=== PATIENT | male | born 1980 | race Hispanic/Latino ===

== ENCOUNTER 2017-08-13 22:48 | Emergency (ER) | payer OTHER ==
[2017-08-14 01:51] VITALS: BP 132/68; PULSE 84; RESP 18; TEMP 98.2; O2SAT 99
--- NOTE | 2017-08-14 02:37 | ED PDOC ---
Arrival/HPI - General Historian: Patient <Kwan Robles - Last Filed: 08/14/17 03:25> <Cody Zamora - Last Filed: 08/14/17 03:31> - General Chief Complaint: Upper Extremity Problem/Injury Time Seen by Provider: 08/14/17 02:01 - History of Present Illness Narrative History of Present Illness (Text): 08/14/17 02:36 This 37 yo male presents to this ED c/o right shoulder pain, and left knee pain x 2 days. Patient stated he tripped and fell on the floor. Denies head injury , neck pain. (Kwan Robles) Past Medical History - Musculoskeletal/Rheumatological Hx Back Pain: Yes - Psychiatric Hx Substance Use: No <Kwan Robles - Last Filed: 08/14/17 03:25> Family/Social History Smoking Status: y Hx Alcohol Use: Yes Hx Substance Use: No <Kwan Robles - Last Filed: 08/14/17 03:25> Allergies/Home Meds <Kwan Robles - Last Filed: 08/14/17 03:25> <Cody Zamora - Last Filed: 08/14/17 03:31> Allergies/Adverse Reactions: Allergies No Known Allergies Allergy (Verified 08/14/17 01:46) Home Medications: Home Meds Medication Instructions Recorded Confirmed Oxycodone HCl [Roxicodone] 30 mg PO QID 08/14/17 08/14/17 Vital Signs Temp Pulse Resp BP Pulse Ox 08/14/17 01:51 98.2 F 84 18 132/68 99 Medical Decision Making Re-evaluation Time: 03:26 Reassessment Condition: Re-examined, Improved <Kwan Robles - Last Filed: 08/14/17 03:25> <Cody Zamora - Last Filed: 08/14/17 03:31> ED Course and Treatment: 08/14/17 03:26 Re-evaluation. Patient feels better. Discussed results and plan with patient who expresses understanding. All questions answered and there is agreement with the plan to discharge home with instructions. Patient stable for discharge. Return if symptoms persist or worsen. (Kwan Robles) - RAD Interpretation Narrative RAD Interpretations (Text): 08/14/17 03:26 shoulder x-rays: No fx or sublux. Knee x-rays: No fx or dislocation (Kwan Robles) Radiology Orders: 08/14/17 02:34 KNEE WITH PATELLA LEFT 3 VIEW [RAD] Stat SHOULDER RIGHT [RAD] Stat - Medication Orders Current Medication Orders: Discontinued Medications Ibuprofen (Motrin Tab) 600 mg PO STAT STA Stop: 08/14/17 03:27 - PA / PRESS TOOL MAKER / Resident Statement / has reviewed & agrees with the documentation as recorded. / has examined the patient and agrees with the treatment plan. <Cody Zamora - Last Filed: 08/14/17 03:31> Disposition/Present on Arrival - Present on Arrival Any Indicators Present on Arrival: No History of DVT/PE: No History of Uncontrolled Diabetes: No Urinary Catheter: No History of Decub. Ulcer: No History Surgical Site Infection Following: None - Disposition Have Diagnosis and Disposition been Completed?: Yes Disposition Time: 03:27 Patient Plan: Discharge <Kwan Robles - Last Filed: 08/14/17 03:25> <Cody Zamora - Last Filed: 08/14/17 03:31> - Disposition Diagnosis: Knee pain, Shoulder pain Disposition: HOME/ ROUTINE Condition: GOOD Discharge Instructions (ExitCare): Shoulder Sprain (ED), Knee Pain (ED) Additional Instructions: Call clinic for follow up visit in 1-2 days. Take medication as instructed. Prescriptions: Ibuprofen [Motrin] 600 mg PO Q8 PRN #12 tab PRN Reason: Pain, Severe (8-10) Referrals: [facility] [Outside] - Follow up with primary [facility] [Outside] - Follow up with primary Forms: [employer] (Chinese)
--- NOTE | 2017-08-14 12:25 | RAD ---
PROCEDURE: Left Knee Radiographs. HISTORY: Pain. COMPARISON: None. FINDINGS: BONES: Normal. No fracture. JOINTS: Normal. No osteoarthritis. JOINT EFFUSION: None. OTHER FINDINGS: None. IMPRESSION: Normal radiographs of the left knee.
--- NOTE | 2017-08-14 12:26 | RAD ---
PROCEDURE: Radiographs of the Right Shoulder HISTORY: pain COMPARISON: No prior. FINDINGS: BONES: Normal. No fracture. JOINTS: Normal. Glenohumeral and acromioclavicular joints preserved. No osteoarthritis. SOFT TISSUES: Normal. OTHER FINDINGS: None. IMPRESSION: Normal radiographs of the right shoulder.
== END 2017-08-14 03:50 | disposition home or self-care (01) ==
LOC: ED 22:48
DX: M25.562 Pain in left knee (principal); M25.511 Pain in right shoulder

== ENCOUNTER 2017-09-25 20:22 | Emergency (ER) | payer SELFPAY ==
[2017-09-25 20:55] VITALS: BP 132/75; PULSE 95; RESP 18; O2SAT 97
[2017-09-25] MEDS ORDERED: Lidocaine 2% Inj (20ml) SC STA (21:14)
--- NOTE | 2017-09-25 21:19 | ED PDOC ---
Arrival/HPI - General Chief Complaint: Trauma Time Seen by Provider: 09/25/17 20:51 Historian: Patient - History of Present Illness Narrative History of Present Illness (Text): 09/25/17 21:14 A 37 year old male, with no significant past medical history, presents to the emergency department complaining of head injury s/p fall. Patient reports slipping in the shower after tub had been cleaned. States experiencing dizziness after hitting head. Patient denies any numbness/weakness/tingling, LOC , or any other complaints at this time. Also, patient mentions taking antibiotics for a right foot cellulitis. He's on 5/10 days of medications and the redness and swelling has almost completely resolved. He will continue taking his prescribed abx. No fever. PMD: Dr. Collins Past Medical History - Provider Review Nursing Documentation Reviewed: Yes - Infectious Disease Hx of Infectious Diseases: None - Integumentary Hx Cellulitis: Yes (foot) - Musculoskeletal/Rheumatological Hx Back Pain: Yes - Psychiatric Hx Substance Use: No Family/Social History - Physician Review Nursing Documentation Reviewed: Yes Family/Social History: No Known Family HX Smoking Status: Never Smoked Hx Alcohol Use: Yes Hx Substance Use: No Allergies/Home Meds Allergies/Adverse Reactions: Allergies No Known Allergies Allergy (Verified 08/14/17 01:46) Home Medications: Home Meds Medication Instructions Recorded Confirmed Unobtainable 09/25/17 09/25/17 Review of Systems - Physician Review All systems were reviewed & negative as marked: Yes - Review of Systems Constitutional: Other (head injury s/p fall) Neurological: Dizziness. absent: Other (no numbness/weakness/tingling to extremities, no LOC) Physical Exam Vital Signs Reviewed: Yes Vital Signs Temp Pulse Resp BP Pulse Ox 09/25/17 21:27 98.3 F 09/25/17 20:55 95 H 18 132/75 97 Blood Pressure: Normal Pulse: Regular Respiratory Rate: Normal Appearance: Positive for: Well-Appearing Pain Distress: None Mental Status: Positive for: Alert and Oriented X 3 - Systems Exam Head: Present: Tenderness (mild), Swelling (mild), Laceration (1 inch Y-shaped irregular laceration to right side to head; no other injuries noted) Pupils: Present: PERRL Extroacular Muscles: Present: EOMI Conjunctiva: Present: Normal Mouth: Present: Moist Mucous Membranes Neck: Present: Normal Range of Motion. No: Meningeal Signs, MIDLINE TENDERNESS , Paraspinal Tenderness Respiratory/Chest: Present: Clear to Auscultation, Good Air Exchange. No: Respiratory Distress, Accessory Muscle Use Cardiovascular: Present: Regular Rate and Rhythm, Normal S1, S2 Abdomen: No: Tenderness Back: Present: Normal Inspection. No: Midline Tenderness Upper Extremity: Present: Normal Inspection. No: Cyanosis, Edema Lower Extremity: Present: Normal Inspection. No: Edema Neurological: Present: GCS=15, CN II-XII Intact, Speech Normal, Motor Func Grossly Intact, Normal Sensory Function, Norm Deep Tendon Reflexes, Gait Normal Skin: Present: Warm, Dry, Normal Color. No: Rashes Psychiatric: Present: Alert, Oriented x 3, Normal Insight, Normal Concentration Medical Decision Making ED Course and Treatment: 09/25/17 21:24 Impression: 37 year old male with head injury s/p fall. r/o ICH Plan: -- Head CT -- Lidocaine 2% -- Suture repair -- Reassess and disposition Prior Visits: Notes and results from previous visits were reviewed. Patient was last seen in the emergency department on 08/14/2017 for right soulder pain and left knee pain. Patient was discharged home. Progress Notes: 09/25/17 21:29 PROCEDURE: LACERATION REPAIR Performed by the emergency provider Location: Right scalp Length: 1 inch Description: Y-shaped, irregularly-shaped, clean wound edges, no foreign bodies Distal CMS: Normal. No deficits. Neurovascularly intact. Anesthesia: 2ml of Lidocaine 2% Preparation: The wound was cleaned with NS and Betadyne. The area was prepped and draped in the usual sterile fashion. Exploration: The wound was explored and no foreign bodies were found. Procedure: The wound was closed with surgical demetrius. There was good approximation. In total, 9 were used. Post-Procedure: Good closure and hemostasis. The patient tolerated the procedure well and there were no complications. CSM remains intact. Post procedure dressing applied. 09/25/17 22:28 CT Head shows: Brain: The white-dennis differentiation is preserved demonstrating no acute territorial type infarct. No acute intracranial hemorrhage is seen. Midline shift: There is no midline shift. Ventricles: No ventriculomegaly. Bones/joints: The calvarium demonstrates no evidence for a depressed fracture. Soft tissues: There is soft tissue swelling/hematoma of the right side of the scalp. Foci of gas are visualized within the soft tissues, consistent with laceration. Sinuses: Unremarkable as visualized. No acute sinusitis. Mastoid air cells: No mastoid effusion. IMPRESSION: 1. There is soft tissue swelling/hematoma of the right side of the scalp. Foci of gas are visualized within the soft tissues, consistent with laceration. 2. No acute intracranial abnormality. Dictated and Authenticated by: Jonny Espinoza MD Patient has no dizziness or lightheadedness. He was advised to return to the ED in 7-10 days to have sutures removed. He was advised to return to the ED if redness, pus or swelling develops in the wound. He was advised to return to the ED with any concerns and explain head injury symptoms to him. He will f/u with his PMD Dr. Collins. - RAD Interpretation Radiology Orders: 09/25/17 21:14 HEAD W/O CONTRAST [CT] Stat - Medication Orders Current Medication Orders: Discontinued Medications Lidocaine HCl (Lidocaine 2% 20ml Vial) 0 ml SC ONCE STA Stop: 09/25/17 21:15 - Scribe Statement The provider has reviewed the documentation as recorded by the Chris Blair Provider Scribe Attestation: All medical record entries made by the Yanethibranjeet were at my direction and personally dictated by me. I have reviewed the chart and agree that the record accurately reflects my personal performance of the history, physical exam, medical decision making, and the department course for this patient. I have also personally directed, reviewed, and agree with the discharge instructions and disposition. Disposition/Present on Arrival - Present on Arrival Any Indicators Present on Arrival: No History of DVT/PE: No History of Uncontrolled Diabetes: No Urinary Catheter: No History of Decub. Ulcer: No History Surgical Site Infection Following: None - Disposition Have Diagnosis and Disposition been Completed?: Yes Diagnosis: Laceration of head Disposition: HOME/ ROUTINE Disposition Time: 22:45 Patient Plan: Discharge Condition: IMPROVED Discharge Instructions (ExitCare): Concussion in Adults, Laceration Repair With Demetrius (DC) Additional Instructions: Mr Mirza, thank you for letting us take care of you today. Your provider was Dr. Peñaloza. You were treated for Head Injury from mechanical fall with laceration. The emergency medical care you received today was directed at your acute symptoms. If you were prescribed any medication, please fill it and take as directed. It may take several days for your symptoms to resolve. Return to the Emergency Department if your symptoms worsen, do not improve, or if you have any other problems. Please contact your doctor or call one of the physicians/clinics you have been referred to that are listed on the Patient Visit Information form that is included in your discharge packet. Bring any paperwork you were given at discharge with you along with any medications you are taking to your follow up visit. Our treatment cannot replace ongoing medical care by a primary care provider (PCP) outside of the emergency department. Thank you for allowing the [facility] team to be part of your care today. If you had an X-Ray or CT scan: A Radiologist will review the ED reading if any change in treatment is needed we will contact you. If you had a blood, urine, or wound culture: It will take several days for the results, if any change in treatment is needed we will contact you. If you had an STI test: It will take 48 hours for the results. Please call after 1 week if you have not heard back. Referrals: [facility], [Non-Staff] - Follow up with primary Forms: [employer] (Romanian), WORK NOTE
[2017-09-25 21:28] VITALS: TEMP 98.3
--- NOTE | 2017-09-25 22:22 | CT ---
EXAM: CT Head Without Intravenous Contrast EXAM DATE/TIME: 09/25/2017 9:14 PM CLINICAL HISTORY: The patient age is 37 years old and is male; Injury or trauma; Fall; Initial encounter; Blunt trauma (contusions or hematomas); Additional info: R/O CVA Facility exam id and description: Ct heads head w/o contrast TECHNIQUE: Axial computed tomography images of the head/brain without intravenous contrast. All CT scans at this facility use one or more dose reduction techniques, viz.: automated exposure control; ma/kV adjustment per patient size (including targeted exams where dose is matched to indication; i.e. head); or iterative reconstruction technique. Coronal and sagittal reformatted images were created and reviewed. COMPARISON: No relevant prior studies available. FINDINGS: Brain: The white-dennis differentiation is preserved demonstrating no acute territorial type infarct. No acute intracranial hemorrhage is seen. Midline shift: There is no midline shift. Ventricles: No ventriculomegaly. Bones/joints: The calvarium demonstrates no evidence for a depressed fracture. Soft tissues: There is soft tissue swelling/hematoma of the right side of the scalp. Foci of gas are visualized within the soft tissues, consistent with laceration. Sinuses: Unremarkable as visualized. No acute sinusitis. Mastoid air cells: No mastoid effusion. IMPRESSION: 1. There is soft tissue swelling/hematoma of the right side of the scalp. Foci of gas are visualized within the soft tissues, consistent with laceration. 2. No acute intracranial abnormality.
== END 2017-09-25 22:45 | disposition home or self-care (01) ==
LOC: ED 20:22
DX: S01.01XA Laceration without foreign body of scalp, initial encounter (principal); W18.2XXA Fall in (into) shower or empty bathtub, initial encounter; Y93.E1 Activity, personal bathing and showering

== ENCOUNTER 2017-10-04 21:44 | Inpatient (IN) | payer MEDICAID, OTHER ==
[2017-10-04 22:05] VITALS: BMI 22.6
[2017-10-04] MEDS ORDERED: Piperacillin/Tazobact 3.375 gm 100 ML IV STA (22:45)
[2017-10-04] MEDS ORDERED: Vancomycin 1gm in NS 250ml 1 GM/250 ML BAG IVPB STA (22:51)
--- NOTE | 2017-10-04 22:53 | ED PDOC ---
Arrival/HPI <Cody Zamora - Last Filed: 10/05/17 00:05> - General Historian: Patient, Spouse - History of Present Illness Time/Duration: > week Symptom Onset: Gradual Symptom Course: Worsening Quality: Aching, Pressure, Tightness Severity Level: 1 Activities at Onset: Rest Context: Work <Paola Adrian - Last Filed: 10/05/17 01:52> - General Chief Complaint: Wound Check Time Seen by Provider: 10/04/17 21:53 - History of Present Illness Narrative History of Present Illness (Text): 10/04/17 22:47 Jesse Mirza is a 37 year old male who presents for right foot swelling and pain s/p dorsal fin trauma to his foot while working 4 weeks ago. Pt was seen and treated at [facility] 3 weeks ago with IV abx and discharged on oral Bactrim for 10 days. Pt is also here for staple removal of the scalp s/ p slip and fall in the shower about a week ago (09/25/17). Pt denies head or scalp pain and only complains of right foot pain that he describes as excruciating. Right foot began to swell, elana along with increase in warmth and pain over the last few days. States that he normally takes Oxycontin for chronic pain however it does not relieve the foot pain he currently has. Denies fever, chest pain, shortness of breath, headache, nausea, vomiting or diarrhea or any other complaints. 10/04/17 22:53 (Paola Adrian) Past Medical History - Provider Review Nursing Documentation Reviewed: Yes - Travel History Have you recently traveled outside [place] w/in the past 3 mons?: No - Infectious Disease Hx of Infectious Diseases: None - Integumentary Hx Cellulitis: Yes (foot) - Musculoskeletal/Rheumatological Hx Back Pain: Yes - Psychiatric Hx Substance Use: No <Paola Adrian - Last Filed: 10/05/17 01:52> Family/Social History - Physician Review Nursing Documentation Reviewed: Yes Family/Social History: Unknown Family HX Smoking Status: Smoker Currrent Status Unknown Hx Alcohol Use: Yes Hx Substance Use: No <Paola Adrian - Last Filed: 10/05/17 01:52> Allergies/Home Meds <Cody Zamora - Last Filed: 10/05/17 00:05> <Paola Adrian - Last Filed: 10/05/17 01:52> Allergies/Adverse Reactions: Allergies No Known Allergies Allergy (Verified 08/14/17 01:46) Home Medications: Home Meds Medication Instructions Recorded Confirmed Unobtainable 09/25/17 09/25/17 Review of Systems - Review of Systems Constitutional: Fatigue Eyes: Normal ENT: Normal Respiratory: Normal Cardiovascular: Normal Gastrointestinal: Appetite Changes Genitourinary Male: Normal Musculoskeletal: Other (right foot and leg pain) Skin: Laceration (scalp sutures), Cellulitis (right foot edema w erythema) Neurological: Normal Endocrine: Normal Hemo/Lymphatic: Normal Psychiatric: Normal <Paola Adrian - Last Filed: 10/05/17 01:52> Physical Exam Vital Signs Reviewed: Yes Temperature: Afebrile Blood Pressure: Normal Pulse: Regular Respiratory Rate: Normal Appearance: Positive for: Non-Toxic, Uncomfortable Pain Distress: Moderate Mental Status: Positive for: Alert and Oriented X 3 - Systems Exam Head: Present: Atraumatic, Normocephalic Pupils: Present: PERRL Extroacular Muscles: Present: EOMI Conjunctiva: Present: Normal Mouth: Present: Moist Mucous Membranes Neck: Present: Normal Range of Motion Respiratory/Chest: Present: Clear to Auscultation, Good Air Exchange. No: Respiratory Distress, Accessory Muscle Use Cardiovascular: Present: Regular Rate and Rhythm, Normal S1, S2. No: Murmurs Abdomen: Present: Normal Bowel Sounds. No: Tenderness, Distention, Peritoneal Signs Back: Present: Normal Inspection Upper Extremity: Present: Normal Inspection. No: Cyanosis, Edema Lower Extremity: Present: CALF TENDERNESS (right LE), NORMAL PULSES (diminished pedal dorsalis pulse of right foot), Laury's Sign, Tenderness (medial aspect of right foot), Swelling (medial aspect of right foot), Erythema (Medial aspect of right foot), Deformity (Medial aspect of right foot), Temperature Abnormalties ( Right LE and foot ). No: Edema, Cyanosis, Normal ROM, Neurovascularly Intact, Capillary Refill < 2 s, Other Neurological: Present: GCS=15, CN II-XII Intact, Speech Normal, Other ( Diminished sensation between webbing of hallux and 2nd toe of right foot; poor ROM especially extensor hallucis longus) Skin: Present: Warm, Dry, Normal Color, Hot (right foot and ankle), Laceration ( post staple placement on the right pariental aspect of scalp). No: Rashes Psychiatric: Present: Alert, Oriented x 3, Normal Insight, Normal Concentration <Paola Adrian - Last Filed: 10/05/17 01:52> Vital Signs Temp Pulse Resp BP Pulse Ox 10/05/17 00:00 98.4 F 95 H 19 143/67 95 10/04/17 22:03 99.8 F H Medical Decision Making <Cody Zamora - Last Filed: 10/05/17 00:05> - RAD Interpretation Sequins Slinger: ED Physician - EKG Interpretation Interpreted by ED Physician: Yes (NSR) <Paola Adrian - Last Filed: 10/05/17 01:52> ED Course and Treatment: 10/04/17 22:53 Impression Jesse Mirza is a 37 year old male who presents for right foot swelling and pain s/p dorsal fin trauma to his foot while working 4 weeks ago. Pt is also here for staple removal of the scalp s/p slip and fall in the shower about a week ago. Plan ecg, cbc w diff, cmp, ua, vbg shock panel, right foot XR pain management assess and dispo; likely will admit for failed outpatient cellulitis tx and r/o osteomyelitis Progress Note 10/04/17 23:28 Pt complains of pressure and pain in right foot; NS 500cc bolus and Ketorolac 30mg IVP given Hospital Resident and Store Person, Dr. Urbina, contacted and pt admitted under Dr. Neville to the medical/surg floor Vanco 1gram IV and Zosyn IV STAT Advised pt of admission status (Paola Adrian) - Lab Interpretations Lab Results: 10/05/17 00:00 10/05/17 00:00 Lab Results 10/05/17 00:00: pO2 37, VBG pH 7.34, VBG pCO2 60.0, VBG HCO3 32.4 H, VBG Total CO2 34.2 H, VBG O2 Sat (Calc) 77.9 H, VBG Base Excess 4.8 H, VBG Potassium 4.1, Sodium 134.0, Chloride 100.0, Glucose 101, Lactate 0.6 L, FiO2 21.0, Venous Blood Potassium 4.1 10/05/17 00:00: Sodium 136, Chloride 98, Potassium 4.0, Carbon Dioxide 29, Anion Gap 13, BUN 17, Creatinine 1.0, Est GFR ( Amer) > 60, Est GFR (Non- Af Amer) > 60, Random Glucose 99, Calcium 9.9, Total Bilirubin 0.8, AST 26, ALT 30, Alkaline Phosphatase 73, Total Protein 7.9, Albumin 4.3, Globulin 3.6, Albumin/Globulin Ratio 1.2 10/05/17 00:00: WBC 12.3 H, RBC 3.85, Hgb 11.6 L, Hct 34.6 L, MCV 89.9, MCH 30.1 , MCHC 33.5, RDW 12.3, Plt Count 306, MPV 10.0, Gran % 75.2 H, Lymph % (Auto) 18.2 L, [place] % (Auto) 6.3 H, Eos % (Auto) 0.1 L, Baso % (Auto) 0.2, Gran # 9.23 H, Lymph # (Auto) 2.2, [place] # (Auto) 0.8 H, Eos # (Auto) 0.0, Baso # (Auto) 0.02 - RAD Interpretation Narrative RAD Interpretations (Text): 10/05/17 01:50 Plain film of the right foot reveals soft tissue swelling on the medial aspect; no evidence of bone necrosis, fracture, or dislocation (Paola Adrian) Radiology Orders: 10/04/17 22:42 FOOT RIGHT 3 VIEWS ROUTINE [RAD] Stat - Medication Orders Current Medication Orders: Heparin Sodium (Porcine) (Heparin) 5,000 units SC Q8 QUENTIN PRN Reason: Protocol Vancomycin HCl (Vancomycin 1gm) 1 gm in 250 mls @ 167 mls/hr IVPB DAILY QUENTIN PRN Reason: Protocol Piperacillin Sod/Tazobactam Sod (Zosyn 3.375 In Ns 100ml) 100 mls @ 200 mls/hr IVPB Q6 QUENTIN PRN Reason: Protocol Stop: 10/05/17 12:29 Oxycodone/Acetaminophen (Percocet 5/325 Mg Tab) 1 tab PO Q4H PRN PRN Reason: Pain, moderate (4-7) Stop: 10/08/17 01:42 Pantoprazole Sodium (Protonix Ec Tab) 40 mg PO 0600 QUENTIN Discontinued Medications Vancomycin HCl (Vancomycin 1gm) 1 gm in 250 mls @ 167 mls/hr IVPB STAT STA PRN Reason: Protocol Stop: 10/05/17 00:20 Last Admin: 10/05/17 01:15 Dose: 167 mls/hr Piperacillin Sod/Tazobactam Sod (Zosyn 3.375 In Ns 100ml) 100 mls @ 200 mls/hr IV STAT STA PRN Reason: Protocol Stop: 10/04/17 23:14 Last Admin: 10/05/17 00:08 Dose: 200 mls/hr eMAR Start Stop Document 10/05/17 00:08 AB (Rec: 10/05/17 00:08 AB [id number]) Intravenous Solution Start Date 10/05/17 Start Time 00:08 End Date 10/05/17 End time 00:38 Total Infusion Time 30 Sodium Chloride (Sodium Chloride 0.9%) 500 mls @ 999 mls/hr IV .Q31M STA Stop: 10/04/17 23:51 Last Admin: 10/05/17 00:09 Dose: 999 mls/hr eMAR Start Stop Document 10/05/17 00:09 AB (Rec: 10/05/17 00:09 AB [id number]) Intravenous Solution Start Date 10/05/17 Start Time 00:09 End Date 10/05/17 End time 00:39 Total Infusion Time 30 Ketorolac Tromethamine (Toradol) 30 mg IVP STAT STA Stop: 10/04/17 23:23 Last Admin: 10/05/17 00:09 Dose: Oxycodone HCl (Oxycodone Immediate Release Tab) 10 mg PO STAT STA Stop: 10/05/17 01:41 - PA / WIRELESS OPERATOR / Resident Statement RANDA has reviewed & agrees with the documentation as recorded. RANDA has examined the patient and agrees with the treatment plan. <Cody Zamora - Last Filed: 10/05/17 00:05> Disposition/Present on Arrival <Cody Zamora - Last Filed: 10/05/17 00:05> - Present on Arrival Any Indicators Present on Arrival: Yes History of DVT/PE: No History of Uncontrolled Diabetes: No Urinary Catheter: No History of Decub. Ulcer: No History Surgical Site Infection Following: None - Disposition Have Diagnosis and Disposition been Completed?: Yes Disposition Time: 00:20 Patient Plan: Admission <Paola Adrian - Last Filed: 10/05/17 01:52> - Disposition Diagnosis: Failure of outpatient treatment, Cellulitis of foot, right Disposition: HOSPITALIZED Patient Problems: Current Active Problems Problem Status Onset Cellulitis of foot, right Acute Failure of outpatient treatment Acute Condition: STABLE Referrals: PCP,NO [Primary Care Provider] - Follow up with primary
[2017-10-04] MEDS ORDERED: Sodium Chloride 0.9% 500 ML IV STA (23:21)
[2017-10-05 00:16] LABS: VENOUS BLOOD GAS BASE EXCESS 4.8 mmol/L (0.0-2.0); VENOUS BLOOD GAS PO2 37 mm/Hg (30-55); VENOUS BLOOD PH 7.34 (7.32-7.43)
[2017-10-05 00:17] LABS: BASO # 0.02 K/mm3 (0.0-2.0); BASO % 0.2 % (0.0-3.0); EOS % 0.1 % (1.5-5.0); GRAN # 9.23 (1.4-6.5); GRAN % 75.2 % (50.0-68.0); HEMOGLOBIN 11.6 g/dL (14.0-18.0); LYMPH # 2.2 (1.2-3.4); LYMPH % 18.2 % (22.0-35.0); MEAN CELL VOLUME 89.9 fl (80.0-105.0); MEAN CORPUSCULAR HEMOGLOBIN 30.1 pg (25.0-35.0); MEAN CORPUSCULAR HGB CONC 33.5 g/dl (31.0-37.0); MONO # 0.8 (0.1-0.6); MONO % 6.3 % (1.0-6.0); RBC 3.85 10^6/uL (3.5-6.1); RED CELL DISTRIBUTION WIDTH 12.3 % (11.5-14.5); WHITE BLOOD COUNT 12.3 10^3/ul (4.5-11.0)
[2017-10-05 00:26] LABS: ALB/GLOB RATIO 1.2 (1.1-1.8); ALBUMIN 4.3 g/dL (3.0-4.8); ALT/SGPT 30 U/L (7-56); AST/SGOT 26 U/L (17-59); BLOOD UREA NITROGEN 17 mg/dL (7-21); CALCIUM 9.9 mg/dL (8.4-10.5); GFR AFRICAN-AMERICAN > 60; GFR NON-AFRICAN AMERICAN > 60
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
[2017-10-05] MEDS ORDERED: oxyCODONE 5 mg Immediate Release Tab PO STA (01:40)
[2017-10-05] MEDS ORDERED: Oxycodone/Acetaminophen 5/325 mg Tab PO PRN (01:41)
[2017-10-05] MEDS ORDERED: TDAP Vaccine 0.5 mL Syr IM ONE (01:52)
[2017-10-05 02:10] LABS: URINE BILIRUBIN NEGATIVE (NEGATIVE); URINE BLOOD NEGATIVE (NEGATIVE); URINE GLUCOSE (UA) NEGATIVE (NEGATIVE); URINE LEUKOCYTE ESTERASE NEGATIVE Leu/uL (NEGATIVE); URINE PROTEIN NEGATIVE mg/dL (<30 mg/dL); URINE UROBILINOGEN 0.2 E.U./dL (<1 E.U./dL)
[2017-10-05 02:11] LABS: URINE APPEARANCE CLEAR (CLEAR); URINE COLOR YELLOW (YELLOW)
[2017-10-05 03:39] LABS: BARBITURATES, UR NEGATIVE (NEGATIVE); BENZODIAZEPINES, UR NEGATIVE (NEGATIVE); OPIATES, UR POSITIVE (NEGATIVE); PHENCYCLIDINE, UR NEGATIVE (NEGATIVE)
[2017-10-05] MEDS: Pantoprazole 40 mg EC Tab PO SCH (05:58)
[2017-10-05] MEDS ORDERED: Piperacillin/Tazobact 3.375 gm 100 ML IVPB SCH (06:00)
--- NOTE | 2017-10-05 08:15 | RAD ---
PROCEDURE: Right Foot Radiographs. HISTORY: cellulitis COMPARISON: None. FINDINGS: BONES: Healed fractures are seen in the 2nd and 3rd metatarsals JOINTS: Normal. SOFT TISSUES: Normal. OTHER FINDINGS: None. IMPRESSION: No acute findings
[2017-10-05 08:45] LABS: BASO # 0.02 K/mm3 (0.0-2.0); BASO % 0.2 % (0.0-3.0); EOS # 0.1 (0.0-0.7); EOS % 0.7 % (1.5-5.0); GRAN # 8.12 (1.4-6.5); GRAN % 71.7 % (50.0-68.0); HEMOGLOBIN 10.7 g/dL (14.0-18.0); LYMPH # 2.3 (1.2-3.4); LYMPH % 20.1 % (22.0-35.0); MEAN CELL VOLUME 90.7 fl (80.0-105.0); MEAN CORPUSCULAR HEMOGLOBIN 29.3 pg (25.0-35.0); MEAN CORPUSCULAR HGB CONC 32.3 g/dl (31.0-37.0); MEAN PLATELET VOLUME 10.2 fl (7.0-11.0); MONO # 0.8 (0.1-0.6); MONO % 7.3 % (1.0-6.0); RBC 3.65 10^6/uL (3.5-6.1); RED CELL DISTRIBUTION WIDTH 12.3 % (11.5-14.5); WHITE BLOOD COUNT 11.3 10^3/ul (4.5-11.0)
[2017-10-05 08:47] LABS: ALB/GLOB RATIO 1.1 (1.1-1.8); ALBUMIN 3.4 g/dL (3.0-4.8); ALT/SGPT 30 U/L (7-56); AST/SGOT 21 U/L (17-59); BLOOD UREA NITROGEN 19 mg/dL (7-21); CALCIUM 8.8 mg/dL (8.4-10.5); GFR AFRICAN-AMERICAN > 60; GFR NON-AFRICAN AMERICAN > 60; HDL CHOLESTEROL 51 mg/dL (29-60)
[2017-10-05 08:57] LABS: LDL CHOLESTEROL 58 mg/dL (0-129)
[2017-10-05] MEDS ORDERED: Vancomycin 1gm in NS 250ml 1 GM/250 ML BAG IVPB SCH (10:00)
[2017-10-05] MEDS: oxyCODONE 30 mg Immediate Release Tab PO PRN ×3 (10:17→22:24)
[2017-10-05] MEDS: Vancomycin 1gm in NS 250ml 1 GM/250 ML BAG IVPB SCH ×2 (10:17→21:15)
[2017-10-05] MEDS ORDERED: Meropenem 1 GM in Dextrose 5% In Water 100 ML IVPB SCH (14:00)
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
[2017-10-05] MEDS: Meropenem 1g/NS 100mL IVPB 1 GM/100 ML PIGGYBACK IVPB SCH ×2 (14:30→21:14)
--- NOTE | 2017-10-05 14:40 | MRI ---
PROCEDURE: MRI of the right foot without contrast HISTORY: r/o medial midfoot foreign body/ abscess. COMPARISON: TECHNIQUE: MRI of the right foot was performed in multiple planes using multiple pulse sequences FINDINGS: There is extensive marrow edema in the 1st cuneiform in the adjacent 1st metatarsal. Findings are suspicious for osteomyelitis. There is minimal marrow edema in the proximal 2nd metatarsal. There is a mild amount of subcutaneous edema. Small subcutaneous fluid collections are seen adjacent to the base of the 1st metatarsal. The largest of these collections measures 7 mm in height by 19 mm length as seen on image 19 series 5. These could represent focal abscesses. There is no evidence of a foreign body IMPRESSION: Marrow edema in the 1st cuneiform and 1st metatarsal suspicious for osteomyelitis. See comments
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
[2017-10-06] MEDS: oxyCODONE 30 mg Immediate Release Tab PO PRN (05:10)
[2017-10-06] MEDS: Pantoprazole 40 mg EC Tab PO SCH (05:10)
[2017-10-06] MEDS: Meropenem 1g/NS 100mL IVPB 1 GM/100 ML PIGGYBACK IVPB SCH ×3 (05:10→21:52)
[2017-10-06 08:36] LABS: BASO # 0.01 K/mm3 (0.0-2.0); BASO % 0.1 % (0.0-3.0); EOS # 0.1 (0.0-0.7); EOS % 0.8 % (1.5-5.0); GRAN % 66.1 % (50.0-68.0); LYMPH # 1.9 (1.2-3.4); LYMPH % 25.3 % (22.0-35.0); MEAN CELL VOLUME 91.1 fl (80.0-105.0); MEAN CORPUSCULAR HEMOGLOBIN 29.7 pg (25.0-35.0); MEAN CORPUSCULAR HGB CONC 32.6 g/dl (31.0-37.0); MEAN PLATELET VOLUME 10.4 fl (7.0-11.0); MONO # 0.6 (0.1-0.6); MONO % 7.7 % (1.0-6.0); RBC 3.7 10^6/uL (3.5-6.1); RED CELL DISTRIBUTION WIDTH 12.4 % (11.5-14.5); WHITE BLOOD COUNT 7.6 10^3/ul (4.5-11.0)
[2017-10-06 09:24] LABS: ALB/GLOB RATIO 1.1 (1.1-1.8); ALBUMIN 3.6 g/dL (3.0-4.8); ALT/SGPT 22 U/L (7-56); AST/SGOT 21 U/L (17-59); BLOOD UREA NITROGEN 14 mg/dL (7-21); CALCIUM 9.6 mg/dL (8.4-10.5); GFR AFRICAN-AMERICAN > 60; GFR NON-AFRICAN AMERICAN > 60
[2017-10-06] MEDS: Vancomycin 1gm in NS 250ml 1 GM/250 ML BAG IVPB SCH ×2 (09:29→21:52)
[2017-10-06] MEDS: Morphine 2 mg/ml ISec IVP PRN ×4 (09:30→22:21)
--- NOTE | 2017-10-06 11:58 | CP.PCM.PN ---
<Mello Novak - Last Filed: 10/06/17 12:03> Subjective - Date & Time of Evaluation Date of Evaluation: 10/06/17 Time of Evaluation: 08:00 - Subjective Subjective: Patient seen and evaluated at bedside. States he was able to sleep overnight however is in severe pain. Describes pain in right foot as a hammer. Denies shortness of breath, chest pain, fevers, chills, nausea, vomiting diarrhea. Objective - Vital Signs/Intake and Output Vital Signs (last 24 hours): Temp Pulse Resp BP Pulse Ox 97.8 F 73 20 121/68 99 10/06/17 07:30 10/06/17 07:30 10/06/17 07:30 10/06/17 07:30 10/06/17 07:30 Intake and Output: 10/06/17 10/06/17 06:59 18:59 Intake Total 360 Balance 360 - Medications Medications: Current Medications Heparin Sodium (Porcine) (Heparin) 5,000 units SC Q8 QUENTIN PRN Reason: Protocol Last Admin: 10/06/17 05:09 Dose: 5,000 units Vancomycin HCl (Vancomycin 1gm) 1 gm in 250 mls @ 167 mls/hr IVPB Q12 QUENTIN PRN Reason: Protocol Last Admin: 10/06/17 09:29 Dose: 167 mls/hr Meropenem/Sodium Chloride (Meropenem 1g/Ns 100ml Ivpb) 1 gm in 100 mls @ 100 mls/hr IVPB Q8H [facility] Stop: 10/12/17 14:01 Last Admin: 10/06/17 05:10 Dose: 100 mls/hr Ibuprofen (Motrin Tab) 600 mg PO Q6H PRN PRN Reason: Pain, moderate (4-7) Last Admin: 10/05/17 21:21 Dose: 600 mg Morphine Sulfate (Morphine) 2 mg IVP Q4H PRN PRN Reason: Pain, severe (8-10) Last Admin: 10/06/17 09:30 Dose: 2 mg Nicotine (Nicoderm Cq) 1 patch TD DAILY [facility] Last Admin: 10/06/17 09:30 Dose: 1 patch Pantoprazole Sodium (Protonix Ec Tab) 40 mg PO 0600 [facility] Last Admin: 10/06/17 05:10 Dose: 40 mg - Labs Labs: 10/06/17 08:24 10/06/17 08:24 - Constitutional Appears: Non-toxic, No Acute Distress - Head Exam Head Exam: ATRAUMATIC, NORMAL INSPECTION, NORMOCEPHALIC - Eye Exam Eye Exam: EOMI, Normal appearance - ENT Exam ENT Exam: Mucous Membranes Moist, Normal Exam - Neck Exam Neck Exam: Normal Inspection - Respiratory Exam Respiratory Exam: Clear to Ausculation Bilateral, NORMAL BREATHING PATTERN. 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 official read pending. - Right foot MRI reveals osteomyelitis - Podiatry recs appreciated with new MRI finding of osteomyelitis Hx of recent NSAID use: - Protonix - monitor for symptoms of gastritis/GERD - Avoid further high doses of NSAIDs Hx of Polysubstance abuse: - Urine drug screen positive for opioids and cocaine - Advised cessation Hx of Tobacco use: - Advised cessation - Nicotine patch Hx of previous fractures/back pain: - Oxycodone d/c'ed, morphine 2mg Q4h for severe pain - Motrin for breakthrough pain PPX: Heparin sq, Protonix <Riaz Grewal B - Last Filed: 10/06/17 14:35> Objective - Vital Signs/Intake and Output Vital Signs (last 24 hours): Temp Pulse Resp BP Pulse Ox 97.8 F 73 20 121/68 99 10/06/17 07:30 10/06/17 07:30 10/06/17 07:30 10/06/17 07:30 10/06/17 07:30 Intake and Output: 10/06/17 10/06/17 06:59 18:59 Intake Total 360 Balance 360 - Medications Medications: Current Medications Heparin Sodium (Porcine) (Heparin) 5,000 units SC Q8 QUENTIN PRN Reason: Protocol Last Admin: 10/06/17 13:59 Dose: 5,000 units Vancomycin HCl (Vancomycin 1gm) 1 gm in 250 mls @ 167 mls/hr IVPB Q12 QUENTIN PRN Reason: Protocol Last Admin: 10/06/17 09:29 Dose: 167 mls/hr Meropenem/Sodium Chloride (Meropenem 1g/Ns 100ml Ivpb) 1 gm in 100 mls @ 100 mls/hr IVPB Q8H [facility] Stop: 10/12/17 14:01 Last Admin: 10/06/17 13:59 Dose: 100 mls/hr Ibuprofen (Motrin Tab) 600 mg PO Q6H PRN PRN Reason: Pain, moderate (4-7) Last Admin: 10/05/17 21:21 Dose: 600 mg Morphine Sulfate (Morphine) 2 mg IVP Q4H PRN PRN Reason: Pain, severe (8-10) Last Admin: 10/06/17 13:58 Dose: 2 mg Nicotine (Nicoderm Cq) 1 patch TD DAILY [facility] Last Admin: 10/06/17 09:30 Dose: 1 patch Pantoprazole Sodium (Protonix Ec Tab) 40 mg PO 0600 [facility] Last Admin: 10/06/17 05:10 Dose: 40 mg - Labs Labs: 10/06/17 08:24 10/06/17 08:24 Attending/Attestation - Attestation I have personally seen and examined this patient.: Yes I have fully participated in the care of the patient.: Yes I have reviewed all pertinent clinical information, including history, physical exam and plan: Yes Notes (Text): I have seen and examined the patient at bedside. 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 He is afebrile however reports fever and chills 2 days [employer]. He has leukocytosis and complains of severe pain in the right foot. MRI revealed osteomyelitis. ID and podiatry on board. Continue meropenem and vancomycin. Tobacco and narcotic cessation counselling provided. Upon discharge patient will follow up with Dr Collins. Dr Riaz Grewal
--- NOTE | 2017-10-06 13:56 | CP.PCM.PN ---
Subjective - Date & Time of Evaluation Date of Evaluation: 10/06/17 Time of Evaluation: 11:10 - Subjective Subjective: Still with pain in the right foot, not in distress, no fevers, no nausea, no diarrhea. Objective - Vital Signs/Intake and Output Vital Signs (last 24 hours): Temp Pulse Resp BP Pulse Ox 97.8 F 86 20 107/72 97 10/05/17 07:30 10/05/17 07:30 10/05/17 07:30 10/05/17 07:30 10/05/17 07:30 Intake and Output: 10/05/17 10/05/17 06:59 18:59 Intake Total 240 Balance 240 - Medications Medications: Current Medications Heparin Sodium (Porcine) (Heparin) 5,000 units SC Q8 [facility] PRN Reason: Protocol Last Admin: 10/05/17 05:58 Dose: 5,000 units Vancomycin HCl (Vancomycin 1gm) 1 gm in 250 mls @ 167 mls/hr IVPB Q12 [facility] PRN Reason: Protocol Last Admin: 10/05/17 10:17 Dose: 167 mls/hr Meropenem/Sodium Chloride (Meropenem 1g/Ns 100ml Ivpb) 1 gm in 100 mls @ 100 mls/hr IVPB Q8H [facility] Stop: 10/12/17 14:01 Nicotine (Nicoderm Cq) 1 patch TD DAILY [facility] Last Admin: 10/05/17 10:18 Dose: 1 patch Oxycodone HCl (Oxycodone Immediate Release Tab) 30 mg PO Q6H PRN PRN Reason: Pain, severe (8-10) Last Admin: 10/05/17 10:17 Dose: 30 mg Pantoprazole Sodium (Protonix Ec Tab) 40 mg PO 0600 [facility] Last Admin: 10/05/17 05:58 Dose: 40 mg - Labs Labs: 10/05/17 08:26 10/05/17 08:26 - Constitutional Appears: Chronically Ill - Head Exam Head Exam: NORMAL INSPECTION - ENT Exam ENT Exam: Mucous Membranes Moist - Neck Exam Neck Exam: absent: Meningismus - Respiratory Exam Respiratory Exam: Decreased Breath Sounds - Cardiovascular Exam Cardiovascular Exam: +S1, +S2 - GI/Abdominal Exam GI & Abdominal Exam: Soft. absent: Tenderness - Extremities Exam Additional comments: right foot with swelling on the medial dorsal side, no fluctuance noted, no discharge or pus noted, still with tenderness extending up to the medial side of the distal leg Assessment and Plan - Assessment and Plan (Free Text) Plan: Assessment Sepsis due to right foot skin and skin structure infection with associated osteomyelitis Plan continue Vancomycin and Merrem pending blood cx, wound cx; MRI shows osteomyelitis of the 1st metatarsal and cuneiform, follow up ESR, CRP and further Podiatry recommendations will continue to monitor clinically
--- NOTE | 2017-10-06 16:28 | CP.PCM.PN ---
<David Caro - Last Filed: 10/06/17 16:22> Subjective - Date & Time of Evaluation Date of Evaluation: 10/06/17 Time of Evaluation: 12:40 - Subjective Subjective: Podiatry Progress note- Dr. Santiago 37 year old male pt seen at bedside for evaluation of right midfoot cellulits. Pt reports general decrease of redness and swelling. Pt reports a decrease in pain from prior day, and reports that current pain medications are well controlling pain. States he was able to sleep overnight, and denies any acute overnight events. He denies shortness of breath, chest pain, fevers, chills, nausea, vomiting diarrhea. Objective - Vital Signs/Intake and Output Vital Signs (last 24 hours): Temp Pulse Resp BP Pulse Ox 97.8 F 73 20 121/68 99 10/06/17 07:30 10/06/17 07:30 10/06/17 07:30 10/06/17 07:30 10/06/17 07:30 Intake and Output: 10/06/17 10/06/17 06:59 18:59 Intake Total 360 780 Balance 360 780 - Medications Medications: Current Medications Heparin Sodium (Porcine) (Heparin) 5,000 units SC Q8 [facility] PRN Reason: Protocol Last Admin: 10/06/17 13:59 Dose: 5,000 units Vancomycin HCl (Vancomycin 1gm) 1 gm in 250 mls @ 167 mls/hr IVPB Q12 [facility] PRN Reason: Protocol Last Admin: 10/06/17 09:29 Dose: 167 mls/hr Meropenem/Sodium Chloride (Meropenem 1g/Ns 100ml Ivpb) 1 gm in 100 mls @ 100 mls/hr IVPB Q8H [facility] Stop: 10/12/17 14:01 Last Admin: 10/06/17 13:59 Dose: 100 mls/hr Ibuprofen (Motrin Tab) 600 mg PO Q6H PRN PRN Reason: Pain, moderate (4-7) Last Admin: 10/05/17 21:21 Dose: 600 mg Morphine Sulfate (Morphine) 2 mg IVP Q4H PRN PRN Reason: Pain, severe (8-10) Last Admin: 10/06/17 13:58 Dose: 2 mg Nicotine (Nicoderm Cq) 1 patch TD DAILY [facility] Last Admin: 10/06/17 09:30 Dose: 1 patch Pantoprazole Sodium (Protonix Ec Tab) 40 mg PO 0600 [facility] Last Admin: 10/06/17 05:10 Dose: 40 mg - Labs Labs: 10/06/17 08:24 10/06/17 08:24 - Constitutional Appears: Well, Non-toxic, No Acute Distress - Extremities Exam Additional comments: Right lower extremity focused. VASC: DP and PT pulses are fully palpable graded 2/4 respectively. Regression of lower leg and rearfoot edema, non-piting edema not localized to midfoot, with return of relaxed skin tension lines. Temperature runs warm to cool proximal to distal. DERM: Decreased intensity of erythema noted at level of midfoot. Dorsal-medial fluctuance decreasing. Tenderness to palpation along midfoot decreasing. MUSCK: Medial tibial tenderness to palpation along distal 2/5 tenderness - Neurological Exam Neurological Exam: Alert, Awake, Oriented x3 - Psychiatric Exam Psychiatric exam: Normal Affect, Normal Mood Assessment and Plan - Assessment and Plan (Free Text) Assessment: 37 year old male with right midfoot abscess and cellulits, resolving. Plan: Pt seen and evaluated. Discussed in detail with attending, Dr. Santiago. Afebrile, absent leukocytosis WBC= 7.6 trending down from yesterday's 12.3 - Continue IV abx per ID recommendations; currently Merrem and Vanco - Right foot MRI reveals dorsal midfoot abscess and potential 1st metatarsal and medial cuneiform osteomyelitis Pain control per medical team. Pt has hx of polysubstance abuse Currently Morphine 2mg Q4h for severe pain & Motrin for breakthrough pain. Indication presents for potential podiatric surgical intervention. Podiatry will continue to follow pt while inhouse. <Bird Santiago - Last Filed: 10/07/17 06:51> Objective - Vital Signs/Intake and Output Vital Signs (last 24 hours): Temp Pulse Resp BP Pulse Ox 98.8 F 73 20 115/79 98 10/07/17 00:00 10/07/17 00:00 10/07/17 00:00 10/07/17 00:00 10/07/17 00:00 Intake and Output: 10/06/17 10/07/17 18:59 06:59 Intake Total 780 1080 Balance 780 1080 - Medications Medications: Current Medications Heparin Sodium (Porcine) (Heparin) 5,000 units SC Q8 [facility] PRN Reason: Protocol Last Admin: 10/06/17 21:51 Dose: 5,000 units Vancomycin HCl (Vancomycin 1gm) 1 gm in 250 mls @ 167 mls/hr IVPB Q12 [facility] PRN Reason: Protocol Last Admin: 10/06/17 21:52 Dose: 167 mls/hr Meropenem/Sodium Chloride (Meropenem 1g/Ns 100ml Ivpb) 1 gm in 100 mls @ 100 mls/hr IVPB Q8H [facility] Stop: 10/12/17 14:01 Last Admin: 10/06/17 21:52 Dose: 100 mls/hr Ibuprofen (Motrin Tab) 600 mg PO Q6H PRN PRN Reason: Pain, moderate (4-7) Last Admin: 10/05/17 21:21 Dose: 600 mg Morphine Sulfate (Morphine) 2 mg IVP Q4H PRN PRN Reason: Pain, severe (8-10) Last Admin: 10/07/17 02:43 Dose: 2 mg Nicotine (Nicoderm Cq) 1 patch TD DAILY [facility] Last Admin: 10/06/17 09:30 Dose: 1 patch Pantoprazole Sodium (Protonix Ec Tab) 40 mg PO 0600 [facility] Last Admin: 10/06/17 05:10 Dose: 40 mg - Labs Labs: 10/06/17 08:24 10/06/17 08:24 Attending/Attestation - Attestation I have personally seen and examined this patient.: Yes I have fully participated in the care of the patient.: Yes I have reviewed all pertinent clinical information, including history, physical exam and plan: Yes
[2017-10-07] MEDS: Morphine 2 mg/ml ISec IVP PRN ×5 (02:43→19:51)
[2017-10-07] MEDS: Pantoprazole 40 mg EC Tab PO SCH (06:34)
[2017-10-07] MEDS: Meropenem 1g/NS 100mL IVPB 1 GM/100 ML PIGGYBACK IVPB SCH (06:36)
[2017-10-07 07:34] LABS: BASO # 0.01 K/mm3 (0.0-2.0); BASO % 0.1 % (0.0-3.0); EOS % 0.3 % (1.5-5.0); GRAN # 6.65 (1.4-6.5); GRAN % 75.5 % (50.0-68.0); HEMOGLOBIN 11.6 g/dL (14.0-18.0); LYMPH # 1.8 (1.2-3.4); MEAN CELL VOLUME 89.2 fl (80.0-105.0); MEAN CORPUSCULAR HEMOGLOBIN 29.7 pg (25.0-35.0); MEAN CORPUSCULAR HGB CONC 33.3 g/dl (31.0-37.0); MEAN PLATELET VOLUME 10.2 fl (7.0-11.0); MONO # 0.4 (0.1-0.6); MONO % 4.1 % (1.0-6.0); RBC 3.9 10^6/uL (3.5-6.1); RED CELL DISTRIBUTION WIDTH 12.2 % (11.5-14.5); WHITE BLOOD COUNT 8.8 10^3/ul (4.5-11.0)
[2017-10-07 07:53] LABS: ALB/GLOB RATIO 1.1 (1.1-1.8); ALBUMIN 3.8 g/dL (3.0-4.8); ALT/SGPT 19 U/L (7-56); AST/SGOT 19 U/L (17-59); BLOOD UREA NITROGEN 12 mg/dL (7-21); CALCIUM 9.7 mg/dL (8.4-10.5); GFR AFRICAN-AMERICAN > 60; GFR NON-AFRICAN AMERICAN > 60
[2017-10-07] MEDS: Meropenem IV 1 gm in NS 50 ML IVPB SCH ×3 (08:18→23:02)
--- NOTE | 2017-10-07 09:05 | CP.PCM.PN ---
Addendum entered and electronically signed by Umberto Rivera DPM 10/07/17 19:57 : - Patient evaluated bedside in recovery s/p surgical procedure with incision and drainage of right foot abscess with packing - After surgical procedure patient in NAD - (+) Void, (+) Appetite - Capillary refill time <3s and NVSI intact. - Patient denies complaints at this time - Post operative instructions and plan of care explained to patient at length. - Pt. acknowledges understanding. - Podiatry will continue to follow while patient is in house -Patient to be NWB to the right LE, limited WBAT in surgical shoe for transfers only -Keep dressing c/d/i. Do not get wet. Original Note: <Umberto Rivera - Last Filed: 10/07/17 08:48> Subjective - Date & Time of Evaluation Date of Evaluation: 10/07/17 Time of Evaluation: 08:48 - Subjective Subjective: Podiatry Progress Note- Dr. Murillo 37 y.o male seen at bedside in the AM for right midfoot abscess and cellulits with +OM. Patient is seen resting comfortably in bed, in NAD, and AA0x3. Patient denies acute overnight events. Patient reports moderate pain to the right midfoot, worse with touch. Patient denies nausea, vomiting, shortness of breath, fevers, chills or chest pain. Objective - Vital Signs/Intake and Output Vital Signs (last 24 hours): Temp Pulse Resp BP Pulse Ox 98.4 F 86 20 133/87 97 10/07/17 07:30 10/07/17 07:30 10/07/17 07:30 10/07/17 07:30 10/07/17 07:30 Intake and Output: 10/07/17 10/07/17 06:59 18:59 Intake Total 1080 Balance 1080 - Medications Medications: Current Medications Heparin Sodium (Porcine) (Heparin) 5,000 units SC Q8 [facility] PRN Reason: Protocol Last Admin: 10/07/17 06:34 Dose: 5,000 units Vancomycin HCl (Vancomycin 1gm) 1 gm in 250 mls @ 167 mls/hr IVPB Q12 [facility] PRN Reason: Protocol Last Admin: 10/06/17 21:52 Dose: 167 mls/hr Meropenem (Merrem Iv 1 Gm Premix) 50 mls @ 100 mls/hr IVPB Q8H [facility] Stop: 10/12/17 14:01 Last Admin: 10/07/17 08:18 Dose: 100 mls/hr Ibuprofen (Motrin Tab) 600 mg PO Q6H PRN PRN Reason: Pain, moderate (4-7) Last Admin: 10/05/17 21:21 Dose: 600 mg Morphine Sulfate (Morphine) 2 mg IVP Q4H PRN PRN Reason: Pain, severe (8-10) Last Admin: 10/07/17 06:34 Dose: 2 mg Nicotine (Nicoderm Cq) 1 patch TD DAILY [facility] Last Admin: 10/06/17 09:30 Dose: 1 patch Pantoprazole Sodium (Protonix Ec Tab) 40 mg PO 0600 [facility] Last Admin: 10/07/17 06:34 Dose: 40 mg - Labs Labs: 10/07/17 07:00 10/07/17 07:00 - Constitutional Appears: Well, Non-toxic, No Acute Distress - Extremities Exam Additional comments: Right lower extremity focused. VASC: DP and PT pulses 2/4 bilaterally. CFT < 3 seconds x 10 digits. Moderate non-piting edema to the right foot, more prominent noted to the midfoot. Temperature runs warm to cool proximal to distal. DERM: Tiny scab noted to the medial aspect of the right hallux, most likely portal to infection which has closed. No open lesions noted to the entire foot. Erythema noted at level of midfoot- diminished. Dorsal-medial fluctuance is noted -diminished ORTHO: severe pain noted to the dorsum medial right midfoot, MM is 4/5 with secondary to guarding NEURO: gross and protective sensation intact - Neurological Exam Neurological Exam: Alert, Awake, Oriented x3 - Psychiatric Exam Psychiatric exam: Normal Affect, Normal Mood Assessment and Plan - Assessment and Plan (Free Text) Assessment: 37 year old male with right midfoot abscess and cellulits with OM+ Plan: -Pt seen and evaluated with attending Dr. Murillo -Chart, lab, vitals reviewed- Afebrile, absent leukocytosis WBC= 8.8 (on admission leukocytosis with WBC of 12.3) -Continue IV abx per ID recommendations; currently Merrem and Vanco -Right foot MRI reveals dorsal midfoot abscess and potential 1st metatarsal and medial cuneiform osteomyelitis -Podiatry will bring patient to the OR today after 4PM for a incision and drainage of midfoot abscess with pulse lavage -Patient kept NPO after breakfast. Instructed patient to not eat or drink anything after breakfast. -Pt was explained procedure and post-operative course -All pt's questions were answered to satisfaction -No guarantees were made -Pt understands all risks, benefits and complications of procedure -Please provide medical clearance. Thank you. -Podiatry recommends 4-6 weeks IV abx for +OM, PICC line -Will take cultures in the OR -Patient does not have insurance. Recommends abx that can be given once or twice daily at the infusion center -Ordered surgical shoe. Patient may WBAT to the right LE in surgical shoe -Pain control per medical team. Pt has hx of polysubstance abuse Currently Morphine 2mg Q4h for severe pain & Motrin for breakthrough pain. -Podiatry will continue to follow pt while inhouse <Maida Murillo - Last Filed: 10/11/17 15:29> Objective - Vital Signs/Intake and Output Vital Signs (last 24 hours): Temp Pulse Resp BP Pulse Ox 98.9 F 78 20 128/88 98 10/11/17 07:30 10/11/17 07:30 10/11/17 07:30 10/11/17 07:30 10/11/17 07:30 Intake and Output: 10/11/17 10/11/17 06:59 18:59 Intake Total 360 1020 Balance 360 1020 - Medications Medications: Current Medications Acetaminophen (Tylenol 325mg Tab) 325 mg PO Q4H PRN PRN Reason: Pain, Mild (1-3) Heparin Sodium (Porcine) (Heparin) 5,000 units SC Q8 [facility] PRN Reason: Protocol Last Admin: 10/11/17 13:50 Dose: 5,000 units Nafcillin Sodium 2 gm/ Sodium (Chloride) 100 mls @ 100 mls/hr IVPB Q6 [facility] PRN Reason: Protocol Stop: 11/06/17 00:01 Last Admin: 10/11/17 12:34 Dose: 100 mls/hr Ibuprofen (Motrin Tab) 600 mg PO Q6H PRN PRN Reason: Pain, moderate (4-7) Last Admin: 10/11/17 13:46 Dose: 600 mg Lactobacillus Acidophilus (Bacid Acidophilus) 1 cap PO BID [facility] Last Admin: 10/11/17 10:28 Dose: 1 cap Morphine Sulfate (Morphine) 2 mg IVP Q4H PRN PRN Reason: Pain, severe (8-10) Last Admin: 10/11/17 13:46 Dose: 2 mg Nicotine (Nicoderm Cq) 1 patch TD DAILY [facility] Last Admin: 10/11/17 10:27 Dose: 1 patch Pantoprazole Sodium (Protonix Ec Tab) 40 mg PO 0600 [facility] Last Admin: 10/11/17 05:22 Dose: 40 mg - Labs Labs: 10/10/17 06:45 10/10/17 06:45
[2017-10-07] MEDS: Vancomycin 1gm in NS 250ml 1 GM/250 ML BAG IVPB SCH ×2 (10:25→21:12)
--- NOTE | 2017-10-07 11:37 | CP.PCM.PN ---
<Mello Novak - Last Filed: 10/07/17 12:50> Subjective - Date & Time of Evaluation Date of Evaluation: 10/07/17 Time of Evaluation: 05:50 - Subjective Subjective: Patient seen and examined at bedside in no acute distress. Patient is clinically improving. Denies fevers, chills, nausea, vomiting, abdominal pain, chest pain. Objective - Vital Signs/Intake and Output Vital Signs (last 24 hours): Temp Pulse Resp BP Pulse Ox 98.4 F 86 20 133/87 97 10/07/17 07:30 10/07/17 07:30 10/07/17 07:30 10/07/17 07:30 10/07/17 07:30 Intake and Output: 10/07/17 10/07/17 06:59 18:59 Intake Total 1080 Balance 1080 - Medications Medications: Current Medications Heparin Sodium (Porcine) (Heparin) 5,000 units SC Q8 [facility] PRN Reason: Protocol Last Admin: 10/07/17 06:34 Dose: 5,000 units Vancomycin HCl (Vancomycin 1gm) 1 gm in 250 mls @ 167 mls/hr IVPB Q12 [facility] PRN Reason: Protocol Last Admin: 10/07/17 10:25 Dose: 167 mls/hr Meropenem (Merrem Iv 1 Gm Premix) 50 mls @ 100 mls/hr IVPB Q8H [facility] Stop: 10/12/17 14:01 Last Admin: 10/07/17 08:18 Dose: 100 mls/hr Ibuprofen (Motrin Tab) 600 mg PO Q6H PRN PRN Reason: Pain, moderate (4-7) Last Admin: 10/05/17 21:21 Dose: 600 mg Morphine Sulfate (Morphine) 2 mg IVP Q4H PRN PRN Reason: Pain, severe (8-10) Last Admin: 10/07/17 10:25 Dose: 2 mg Nicotine (Nicoderm Cq) 1 patch TD DAILY [facility] Last Admin: 10/07/17 10:26 Dose: 1 patch Pantoprazole Sodium (Protonix Ec Tab) 40 mg PO 0600 [facility] Last Admin: 10/07/17 06:34 Dose: 40 mg - Labs Labs: 10/07/17 07:00 10/07/17 07:00 - Constitutional Appears: Non-toxic, No Acute Distress - Head Exam Head Exam: ATRAUMATIC, NORMAL INSPECTION, NORMOCEPHALIC - Eye Exam Eye Exam: EOMI, Normal appearance - ENT Exam ENT Exam: Mucous Membranes Moist - Neck Exam Neck Exam: Normal Inspection - Respiratory Exam Respiratory Exam: Clear to Ausculation Bilateral, NORMAL BREATHING PATTERN - Cardiovascular Exam Cardiovascular Exam: REGULAR RHYTHM, +S1, +S2 - GI/Abdominal Exam GI & Abdominal Exam: Soft, Normal Bowel Sounds - Extremities Exam Extremities Exam: Tenderness (right foot) Additional comments: erythema at medial base of right foot (improving) - Back Exam Back Exam: NORMAL INSPECTION - Neurological Exam Neurological Exam: Alert, Awake, Oriented x3 - Psychiatric Exam Psychiatric exam: Normal Affect, Normal Mood - Skin Skin Exam: Intact, Normal Color, Warm Assessment and Plan - Assessment and Plan (Free Text) 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 - Right foot MRI reveals osteomyelitis, Will have I&D today with podiatry. Cultures will be sent: anaerobic/aerobic blood wound AFB cultures, gram stain Hx of recent NSAID use: - Protonix - monitor for symptoms of gastritis/GERD - Avoid further high doses of NSAIDs Hx of Polysubstance abuse: - Urine drug screen positive for opioids and cocaine - Advised cessation Hx of Tobacco use: - Advised cessation - Nicotine patch Hx of previous fractures/back pain: - Continue morphine 2mg Q4h for severe pain - Motrin for breakthrough pain PPX: Heparin sq, Protonix <Rangasamy,Ajantha - Last Filed: 10/07/17 16:50> Objective - Vital Signs/Intake and Output Vital Signs (last 24 hours): Temp Pulse Resp BP Pulse Ox 98.6 F 64 18 139/76 99 10/07/17 16:18 10/07/17 16:18 10/07/17 16:18 10/07/17 16:18 10/07/17 16:18 Intake and Output: 10/07/17 10/07/17 06:59 18:59 Intake Total 1080 900 Balance 1080 900 - Medications Medications: Current Medications Heparin Sodium (Porcine) (Heparin) 5,000 units SC Q8 [facility] PRN Reason: Protocol Last Admin: 10/07/17 06:34 Dose: 5,000 units Vancomycin HCl (Vancomycin 1gm) 1 gm in 250 mls @ 167 mls/hr IVPB Q12 [facility] PRN Reason: Protocol Last Admin: 10/07/17 10:25 Dose: 167 mls/hr Meropenem (Merrem Iv 1 Gm Premix) 50 mls @ 100 mls/hr IVPB Q8H [facility] Stop: 10/12/17 14:01 Last Admin: 10/07/17 14:54 Dose: 100 mls/hr Lactated Ringer's (Lactated Ringer's) 1,000 mls @ 75 mls/hr IV .[id number] [facility] Stop: 10/07/17 18:16 Vancomycin HCl (Vancomycin 1gm) 1 gm in 250 mls @ 167 mls/hr IVPB STAT [facility] PRN Reason: Protocol Stop: 10/07/17 17:45 Ibuprofen (Motrin Tab) 600 mg PO Q6H PRN PRN Reason: Pain, moderate (4-7) Last Admin: 10/05/17 21:21 Dose: 600 mg Morphine Sulfate (Morphine) 2 mg IVP Q4H PRN PRN Reason: Pain, severe (8-10) Last Admin: 10/07/17 14:53 Dose: 2 mg Nicotine (Nicoderm Cq) 1 patch TD DAILY [facility] Last Admin: 10/07/17 10:26 Dose: 1 patch Pantoprazole Sodium (Protonix Ec Tab) 40 mg PO 0600 [facility] Last Admin: 10/07/17 06:34 Dose: 40 mg - Labs Labs: 10/07/17 07:00 10/07/17 07:00 Attending/Attestation - Attestation I have personally seen and examined this patient.: Yes I have fully participated in the care of the patient.: Yes I have reviewed all pertinent clinical information, including history, physical exam and plan: Yes Notes (Text): 10/07/17 16:46 Attending note ; Patient seen and examined with resident . 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 He has leukocytosis and complains of severe pain in the right foot. MRI revealed osteomyelitis. ID evaluation appreciated. Continue meropenem and vancomycin. Blood culture is positive for gram-positive cocci. Identification and sensitivity pending. Echocardiogram ordered. Patient is going for incision and drainage by podiatry Dr. Murillo today. Patient needs long-term anti-biotics/PICC line placement. Active smoking ; smoking cessation is strongly advised . narcotic cessation counselling provided. Case discussed with onsite case manager/community mental health social worker in detail for discharge planning. Upon discharge patient will follow up with Dr Collins.
[2017-10-07] MEDS ORDERED: Lactated Ringer's 1,000 ML IV SCH (16:15)
[2017-10-07] MEDS ORDERED: Vancomycin 1gm in NS 250ml 1 GM/250 ML BAG IVPB STA (16:16)
--- NOTE | 2017-10-07 16:16 | CP.PCM.PN ---
Subjective - Date & Time of Evaluation Date of Evaluation: 10/07/17 Time of Evaluation: 08:20 - Subjective Subjective: For surgery today, no fevers, still with right foot pain. Objective - Vital Signs/Intake and Output Vital Signs (last 24 hours): Temp Pulse Resp BP Pulse Ox 97.8 F 73 20 121/68 99 10/06/17 07:30 10/06/17 07:30 10/06/17 07:30 10/06/17 07:30 10/06/17 07:30 Intake and Output: 10/06/17 10/06/17 06:59 18:59 Intake Total 360 Balance 360 - Medications Medications: Current Medications Heparin Sodium (Porcine) (Heparin) 5,000 units SC Q8 [facility] PRN Reason: Protocol Last Admin: 10/06/17 05:09 Dose: 5,000 units Vancomycin HCl (Vancomycin 1gm) 1 gm in 250 mls @ 167 mls/hr IVPB Q12 [facility] PRN Reason: Protocol Last Admin: 10/06/17 09:29 Dose: 167 mls/hr Meropenem/Sodium Chloride (Meropenem 1g/Ns 100ml Ivpb) 1 gm in 100 mls @ 100 mls/hr IVPB Q8H [facility] Stop: 10/12/17 14:01 Last Admin: 10/06/17 05:10 Dose: 100 mls/hr Ibuprofen (Motrin Tab) 600 mg PO Q6H PRN PRN Reason: Pain, moderate (4-7) Last Admin: 10/05/17 21:21 Dose: 600 mg Morphine Sulfate (Morphine) 2 mg IVP Q4H PRN PRN Reason: Pain, severe (8-10) Last Admin: 10/06/17 09:30 Dose: 2 mg Nicotine (Nicoderm Cq) 1 patch TD DAILY [facility] Last Admin: 10/06/17 09:30 Dose: 1 patch Pantoprazole Sodium (Protonix Ec Tab) 40 mg PO 0600 [facility] Last Admin: 10/06/17 05:10 Dose: 40 mg - Labs Labs: 10/06/17 08:24 10/06/17 08:24 - Constitutional Appears: Chronically Ill - Head Exam Head Exam: NORMAL INSPECTION - Neck Exam Neck Exam: absent: Meningismus - Respiratory Exam Respiratory Exam: Decreased Breath Sounds - Cardiovascular Exam Cardiovascular Exam: +S1, +S2 - GI/Abdominal Exam GI & Abdominal Exam: Soft. absent: Tenderness - Extremities Exam Additional comments: right foot with dressings in place Assessment and Plan - Assessment and Plan (Free Text) Plan: Assessment Sepsis due to right foot skin and skin structure infection with associated osteomyelitis, with Staph aureus bacteremia Plan continue Vancomycin and Merrem pending sensitivities of the Staph aureus in the blood; will repeat blood cx today; will get 2D echo; MRI shows osteomyelitis of the 1st metatarsal and cuneiform follow up OR cultures and pathology will continue to monitor clinically
[2017-10-07] MEDS ORDERED: Gentamicin 80 mg/2mL Inj. ONE (16:43)
[2017-10-07] MEDS ORDERED: Lidocaine 2% Inj (20ml) ONE (16:44)
[2017-10-07] MEDS ORDERED: Propofol 10 mg/ml Inj (20 ML) ONE (17:14)
[2017-10-07] MEDS ORDERED: Midazolam 2 MG/2 ML VIAL ONE (17:26)
--- NOTE | 2017-10-07 18:15 | PCM.SURG1 ---
Surgeon's Initial Post Op Note - Surgeon's Notes Surgeon: Dr. Murillo DPM Material Handler Loader: Dr. Rivera DPM Type of Anesthesia: IV Sedation, Local Anesthesia Administered By: Dr. Grewal Pre-Operative Diagnosis: right foot abscess with cellulitis and osteomyelitis Operative Findings: see dictation. preop injectables: 17 cc of 2% lidocaine plain, 1/2 inch idoform packing Post-Operative Diagnosis: same Operation Performed: right foot incision and debridement of right foot abscess and debridement of all nonviable tissue Specimen/Specimens Removed: 1) AFB culture right foot. 2) wound culture right foot. 3) bone biopsy of right cuneiform. 4) cell count blood culture Estimated Blood Loss: EBL {In ML}: 10 Blood Products Given: N/A Drains Used: No Drains Post-Op Condition: Good Date of Surgery/Procedure: 10/07/17 Time of Surgery/Procedure: 05:00
--- NOTE | 2017-10-07 21:12 | CARD ---
APPROVED REPORT EXAM: Two-dimensional and M-mode echocardiogram with Doppler and color Doppler. INDICATION 2D DIMENSIONS Left Atrium (2D)3.0 (1.6-4.0cm)IVSd0.9 (0.7-1.1cm) LVDd4.7 (3.9-5.9cm)PWd0.9 (0.7-1.1cm) LVDs3.1 (2.5-4.0cm)FS (%) 33.3 % LVEF (%)61.9 (>50%) M-Mode DIMENSIONS Aortic Root3.40 (2.2-3.7cm)Aortic Cusp Exc.2.20 (1.5-2.0cm) Aortic Valve AoV Peak Usfojlim984.0cm/Tito Peak GR.17mmHg Mitral Valve MV E Lidjynir11.3cm/sMV A Edrwnpll73.6cm/sE/A ratio1.6 TDI Lateral E' Peak V21.30cm/sMedial E' Peak V12.30cm/sE/Lateral E'4.3 E/Medial E'7.4 Tricuspid Valve TR Peak Jaouxhes822xa/sRAP [id number] Peak Gr.10mmHg [id number] LEFT VENTRICLE The left ventricle is normal size. There is normal left ventricular wall thickness. The left ventricular function is normal. The left ventricular ejection fraction is within the normal range. There is normal LV segmental wall motion. The left ventricular diastolic function is normal. RIGHT VENTRICLE The right ventricle is normal size. There is normal right ventricular wall thickness. The right ventricular systolic function is normal. ATRIA The left atrium size is normal. The right atrium size is normal. AORTIC VALVE The aortic valve is mildly thickened but opens well. No aortic regurgitation is present. MITRAL VALVE The mitral valve is mildly thickened. Mitral regurgitation is trace. GREAT VESSELS The aortic root is normal in size. The IVC is normal in size and collapses >50% with inspiration. <Conclusion> The left ventricle is normal size. There is normal left ventricular wall thickness. The left ventricular function is normal. The left ventricular ejection fraction is within the normal range. There is normal LV segmental wall motion. The left ventricular diastolic function is normal. Right Atrial Echo density noted, A vegitation vs a catheter Tip, Clinically correlate
[2017-10-07] MEDS: Oxycodone/Acetaminophen 5/325 mg Tab PO PRN (21:13)
[2017-10-07] MEDS ORDERED: Morphine 2 mg/ml ISec IVP STA (21:39)
[2017-10-08] MEDS: Morphine 4 mg/ml ISec SC PRN ×4 (06:37→22:17)
[2017-10-08] MEDS: Pantoprazole 40 mg EC Tab PO SCH (06:37)
[2017-10-08] MEDS: Meropenem IV 1 gm in NS 50 ML IVPB SCH ×2 (06:37→15:53)
[2017-10-08 06:58] LABS: BASO # 0.02 K/mm3 (0.0-2.0); BASO % 0.2 % (0.0-3.0); EOS # 0.1 (0.0-0.7); EOS % 1.1 % (1.5-5.0); GRAN # 5.88 (1.4-6.5); GRAN % 66.3 % (50.0-68.0); HEMOGLOBIN 10.9 g/dL (14.0-18.0); LYMPH # 2.1 (1.2-3.4); LYMPH % 23.9 % (22.0-35.0); MEAN CELL VOLUME 91.1 fl (80.0-105.0); MEAN CORPUSCULAR HEMOGLOBIN 29.5 pg (25.0-35.0); MEAN CORPUSCULAR HGB CONC 32.4 g/dl (31.0-37.0); MEAN PLATELET VOLUME 9.8 fl (7.0-11.0); MONO # 0.8 (0.1-0.6); MONO % 8.5 % (1.0-6.0); RBC 3.69 10^6/uL (3.5-6.1); RED CELL DISTRIBUTION WIDTH 12.5 % (11.5-14.5); WHITE BLOOD COUNT 8.9 10^3/ul (4.5-11.0)
[2017-10-08 07:40] LABS: ALBUMIN 3.2 g/dL (3.0-4.8); ALT/SGPT 22 U/L (7-56); AST/SGOT 15 U/L (17-59); BLOOD UREA NITROGEN 24 mg/dL (7-21); CALCIUM 9.4 mg/dL (8.4-10.5); GFR AFRICAN-AMERICAN > 60; GFR NON-AFRICAN AMERICAN > 60
[2017-10-08] MEDS: Oxycodone/Acetaminophen 5/325 mg Tab PO PRN ×4 (07:53→21:14)
--- NOTE | 2017-10-08 08:14 | OP ---
PROCEDURE DATE: 10/07/2017 SURGEON: Maida Murillo DPM. HEAD GOLF PROFESSIONAL: Umberto Rivera DPM, PGY-1 ANESTHESIOLOGIST: Dr. Grewal. TYPE OF ANESTHESIA: LMA general with local sedation. PREOPERATIVE DIAGNOSIS: Right foot infection with abscess and osteomyelitis. POSTOPERATIVE DIAGNOSIS: Right foot infection with abscess and osteomyelitis. PROCEDURE: Right foot abscess incision and drainage with pulse lavage, irrigation and debridement of all nonviable tissue. INDICATIONS: The patient is a 37-year-old male with the above diagnosis. The patient has exhausted all conservative treatments and now requires surgical intervention. The patient signed the consent after careful explanation of risks, benefits, complications, and alternatives for surgical procedure. No guarantees were given nor implied. N.p.o. status was confirmed prior to taking the patient to the OR. PREPARATION: The patient was brought into the operating room and placed on the operating room table in a supine position. A time-out was performed for identification of the correct patient and procedure. After general anesthesia achieved, the patient received a total of 17 mL of 2% lidocaine plain in an ankle-block fashion. Once the anesthesia was achieved, the right foot was then prepped and draped in a normal sterile manner. No tourniquet was used during the entire procedure. DESCRIPTION OF PROCEDURE: Attention was directed to the medial dorsum of the right midfoot where a raised abscess is noted with positive fluctuance. Using a #10 blade, a linear longitudinal incision was made approximately 5 cm down to subcutaneous tissue. A curved hemostat was then used to open up the surrounding soft tissue. Approximately 3 mL of purulent drainage expressed from the incision site. A wound culture was then taken and passed off the field to be sent for pathology. During this time, culture was also taken for AFB and cell count and was sent off the operating field to be sent for pathology. All nonviable soft tissue was removed with a pickup and a #10 blade to healthy tissue. At this time, attention was directed to the medial cuneiform. Using a periosteum elevator, all soft tissue and periosteum was freed from the medial cuneiform. Careful dissection was made to avoid neurovascular structures. Next, a pulse lavage was utilized to copiously irrigate the surgical site with gentamicin-infused saline. Next, utilizing a trephine, a bone biopsy was performed of the medial cuneiform, passed off the field to be sent to Pathology. Again, pulse lavage was utilized to copiously irrigate the surgical site with gentamicin-infused saline. The dorsum opening was then packed with half-inch Iodoform packing, dressed with DSD, 4 x 4 gauze, Kerlix and Coban. POSTOPERATIVE CONDITION: The patient tolerated the anesthesia and procedure well and was escorted to the recovery room with neurovascular status intact and vital signs stable. The patient will be followed by Dr. Murillo while the patient remains in the hospital. [facility] upon discharge. Umberto Rivera DPM Maida Murillo DPM
--- NOTE | 2017-10-08 08:32 | RAD ---
PROCEDURE: Right Foot Radiographs. HISTORY: s/p right foot surgery COMPARISON: None. FINDINGS: BONES: Normal. No fractureGo no acute fracture. Healed fractures of mid 2nd and 3rd metatarsal diaphysis. Periosteal reaction is seen about the base of the 1st metatarsal. There is periarticular lucency seen about the 1st TMT articulation. The possibility of osteomyelitis with infectious arthritis at the TMT 1 articulation must be considered. . JOINTS: Normal. SOFT TISSUES: Normal. OTHER FINDINGS: None. IMPRESSION: Periosteum reaction base of 1st metatarsal with periarticular lucency at TMT 1. Consider infectious arthritis/osteomyelitis. Go
[2017-10-08] MEDS: Vancomycin 1gm in NS 250ml 1 GM/250 ML BAG IVPB SCH (09:53)
--- NOTE | 2017-10-08 11:44 | CP.PCM.PN ---
<Mello Novak - Last Filed: 10/09/17 10:03> Subjective - Date & Time of Evaluation Date of Evaluation: 10/08/17 Time of Evaluation: 06:50 - Subjective Subjective: Patient seen and examined at bedside in no acute distress. States his pain is well controlled. Denies fevers, chills, nausea, vomiting, diarrhea, abdominal pain, chest pain, shortness of breath. Objective - Vital Signs/Intake and Output Vital Signs (last 24 hours): Temp Pulse Resp BP Pulse Ox 97.9 F 70 20 112/62 97 10/08/17 07:30 10/08/17 07:30 10/08/17 07:30 10/08/17 07:30 10/08/17 07:30 Intake and Output: 10/08/17 10/08/17 06:59 18:59 Intake Total 1280 Balance 1280 - Medications Medications: Current Medications Acetaminophen (Tylenol 325mg Tab) 325 mg PO Q4H PRN PRN Reason: Pain, Mild (1-3) Heparin Sodium (Porcine) (Heparin) 5,000 units SC Q8 [facility] PRN Reason: Protocol Last Admin: 10/07/17 06:34 Dose: 5,000 units Vancomycin HCl (Vancomycin 1gm) 1 gm in 250 mls @ 167 mls/hr IVPB Q12 [facility] PRN Reason: Protocol Last Admin: 10/08/17 09:53 Dose: 167 mls/hr Meropenem (Merrem Iv 1 Gm Premix) 50 mls @ 100 mls/hr IVPB Q8H [facility] Stop: 10/12/17 14:01 Last Admin: 10/08/17 06:37 Dose: 100 mls/hr Ibuprofen (Motrin Tab) 600 mg PO Q6H PRN PRN Reason: Pain, moderate (4-7) Last Admin: 10/08/17 07:52 Dose: 600 mg Morphine Sulfate (Morphine) 4 mg SC Q4H PRN PRN Reason: Pain, severe (8-10) Last Admin: 10/08/17 06:37 Dose: 4 mg Nicotine (Nicoderm Cq) 1 patch TD DAILY [facility] Last Admin: 10/08/17 10:15 Dose: 1 patch Oxycodone/Acetaminophen (Percocet 5/325 Mg Tab) 1 tab PO Q4H PRN PRN Reason: Pain, moderate (4-7) Stop: 10/10/17 18:17 Last Admin: 10/08/17 11:10 Dose: 1 tab Oxycodone/Acetaminophen (Percocet 5/325 Mg Tab) 2 tab PO Q4H PRN PRN Reason: Pain, severe (8-10) Stop: 10/10/17 18:17 Last Admin: 10/08/17 07:53 Dose: 2 tab Pantoprazole Sodium (Protonix Ec Tab) 40 mg PO 0600 [facility] Last Admin: 10/08/17 06:37 Dose: 40 mg - Labs Labs: 10/08/17 06:15 10/08/17 06:15 - Constitutional Appears: Non-toxic, No Acute Distress - Head Exam Head Exam: ATRAUMATIC, NORMAL INSPECTION, NORMOCEPHALIC - Eye Exam Eye Exam: EOMI, Normal appearance - ENT Exam ENT Exam: Mucous Membranes Moist, Normal Exam - Neck Exam Neck Exam: Normal Inspection - Respiratory Exam Respiratory Exam: Clear to Ausculation Bilateral, NORMAL BREATHING PATTERN. 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 - Right foot MRI reveals osteomyelitis, I&D done. Cultures sent: anaerobic/ aerobic blood wound AFB cultures, gram stain Hx of recent NSAID use: - Protonix - monitor for symptoms of gastritis/GERD - Avoid further high doses of NSAIDs Hx of Polysubstance abuse: - Urine drug screen positive for opioids and cocaine - Advised cessation Hx of Tobacco use: - Advised cessation - Nicotine patch Hx of previous fractures/back pain: - Continue morphine 2mg Q4h for severe pain - Motrin for breakthrough pain PPX: Heparin sq, Protonix <Rangasamy,Ajantha - Last Filed: 10/10/17 14:31> Objective - Vital Signs/Intake and Output Vital Signs (last 24 hours): Temp Pulse Resp BP Pulse Ox 98.4 F 60 20 117/66 99 10/10/17 07:30 10/10/17 07:30 10/10/17 07:30 10/10/17 07:30 10/10/17 07:30 Intake and Output: 10/10/17 10/10/17 06:59 18:59 Intake Total 1260 Balance 1260 - Medications Medications: Current Medications Acetaminophen (Tylenol 325mg Tab) 325 mg PO Q4H PRN PRN Reason: Pain, Mild (1-3) Heparin Sodium (Porcine) (Heparin) 5,000 units SC Q8 [facility] PRN Reason: Protocol Last Admin: 10/07/17 06:34 Dose: 5,000 units Nafcillin Sodium 2 gm/ Sodium (Chloride) 100 mls @ 100 mls/hr IVPB Q6 [facility] PRN Reason: Protocol Stop: 11/06/17 00:01 Last Admin: 10/10/17 13:00 Dose: 100 mls/hr Ibuprofen (Motrin Tab) 600 mg PO Q6H PRN PRN Reason: Pain, moderate (4-7) Last Admin: 10/10/17 13:06 Dose: 600 mg Lactobacillus Acidophilus (Bacid Acidophilus) 1 cap PO BID [facility] Last Admin: 10/10/17 10:05 Dose: 1 cap Morphine Sulfate (Morphine) 4 mg IVP Q4H PRN PRN Reason: Pain, severe (8-10) Last Admin: 10/10/17 10:04 Dose: 4 mg Nicotine (Nicoderm Cq) 1 patch TD DAILY [facility] Last Admin: 10/10/17 10:05 Dose: 1 patch Oxycodone/Acetaminophen (Percocet 5/325 Mg Tab) 1 tab PO Q4H PRN PRN Reason: Pain, moderate (4-7) Stop: 10/10/17 18:17 Last Admin: 10/10/17 00:15 Dose: 1 tab Pantoprazole Sodium (Protonix Ec Tab) 40 mg PO 0600 [facility] Last Admin: 10/10/17 06:09 Dose: 40 mg - Labs Labs: 10/10/17 06:45 10/10/17 06:45 Attending/Attestation - Attestation I have personally seen and examined this patient.: Yes I have fully participated in the care of the patient.: Yes I have reviewed all pertinent clinical information, including history, physical exam and plan: Yes Notes (Text): 10/10/17 14:29 Attending note ; Patient seen and examined with resident . 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 He has leukocytosis and complains of severe pain in the right foot. MRI revealed osteomyelitis. ID evaluation appreciated. Culture is positive for MSSA. Currently on IV Ancef. Bone biopsy is positive for acute osteomyelitis. Status post incision and drainage by podiatry Dr. Murillo. Continue dressing change. Patient needs long-term anti-biotics. Active smoking ; smoking cessation is strongly advised . narcotic cessation counselling provided. Case discussed with mental health case manager/hospital social worker in detail for discharge planning. Upon discharge patient will follow up with Dr Collins.
--- NOTE | 2017-10-08 17:23 | CP.PCM.PN ---
<Umberto Rivera - Last Filed: 10/08/17 17:20> Subjective - Date & Time of Evaluation Date of Evaluation: 10/08/17 Time of Evaluation: 17:20 - Subjective Subjective: Podiatry Progress Note- Dr. Santiago 37 y.o male seen 1 day s/p incision and drainage of right foot abscess and debridement of all nonviable tissue. Patient is seen resting comfortably in bed , in NAD, and AA0x3. Patient reports feeling chills yesterday, denies fevers, shortness of breath, chest pain, nausea or vomiting. Patient reports he does feel pain- well controlled with pain medication. Patient denies calf tenderness or pain. Objective - Vital Signs/Intake and Output Vital Signs (last 24 hours): Temp Pulse Resp BP Pulse Ox 97.9 F 70 20 112/62 97 10/08/17 07:30 10/08/17 07:30 10/08/17 07:30 10/08/17 07:30 10/08/17 07:30 Intake and Output: 10/08/17 10/08/17 06:59 18:59 Intake Total 1280 Balance 1280 - Medications Medications: Current Medications Acetaminophen (Tylenol 325mg Tab) 325 mg PO Q4H PRN PRN Reason: Pain, Mild (1-3) Heparin Sodium (Porcine) (Heparin) 5,000 units SC Q8 [facility] PRN Reason: Protocol Last Admin: 10/07/17 06:34 Dose: 5,000 units Vancomycin HCl (Vancomycin 1gm) 1 gm in 250 mls @ 167 mls/hr IVPB Q12 [facility] PRN Reason: Protocol Last Admin: 10/08/17 09:53 Dose: 167 mls/hr Meropenem (Merrem Iv 1 Gm Premix) 50 mls @ 100 mls/hr IVPB Q8H [facility] Stop: 10/12/17 14:01 Last Admin: 10/08/17 15:53 Dose: 100 mls/hr Ibuprofen (Motrin Tab) 600 mg PO Q6H PRN PRN Reason: Pain, moderate (4-7) Last Admin: 10/08/17 16:22 Dose: 600 mg Morphine Sulfate (Morphine) 4 mg SC Q4H PRN PRN Reason: Pain, severe (8-10) Last Admin: 10/08/17 13:28 Dose: 4 mg Nicotine (Nicoderm Cq) 1 patch TD DAILY [facility] Last Admin: 10/08/17 10:15 Dose: 1 patch Oxycodone/Acetaminophen (Percocet 5/325 Mg Tab) 1 tab PO Q4H PRN PRN Reason: Pain, moderate (4-7) Stop: 10/10/17 18:17 Last Admin: 10/08/17 11:10 Dose: 1 tab Oxycodone/Acetaminophen (Percocet 5/325 Mg Tab) 2 tab PO Q4H PRN PRN Reason: Pain, severe (8-10) Stop: 10/10/17 18:17 Last Admin: 10/08/17 16:23 Dose: 2 tab Pantoprazole Sodium (Protonix Ec Tab) 40 mg PO 0600 [facility] Last Admin: 10/08/17 06:37 Dose: 40 mg - Labs Labs: 10/08/17 06:15 10/08/17 06:15 - Constitutional Appears: Well, Non-toxic, No Acute Distress - Extremities Exam Extremities Exam: absent: Calf Tenderness Additional comments: Right lower extremity focused. VASC: DP and PT pulses are fully palpable graded 2/4 respectively. CFT < 3 seconds x 10 digits. Temperature runs warm to cool proximal to distal. Mild edema noted to the right foot DERM: Surgical site remains opened with iodoform packing. Wound base of surgical site is 100% granular, no odor, no active purulence drainage, mild serosangious drainage noted, no calor, erythema to the surrounding surgical site. MUSCK: Severe pain with palpation to surgical site NEURO: gross and protective sensation intact - Neurological Exam Neurological Exam: Alert, Awake, Oriented x3 - Psychiatric Exam Psychiatric exam: Normal Affect, Normal Mood Assessment and Plan - Assessment and Plan (Free Text) Assessment: 37 y.o male 1 day s/p I&D and debridement of all nonviable tissue of right foot abscess with cellulitis and OM Plan: -Pt seen and evaluated with attending Dr. Santiago -Chart, lab, vitals reviewed- Afebrile, absent leukocytosis WBC= 8.9 -Continue IV abx per ID recommendations; currently Merrem and Vanco -Right foot MRI reveals dorsal midfoot abscess and potential 1st metatarsal and medial cuneiform osteomyelitis -Patient is 1 day s/p I&D of right foot abscess -Packing removed from surgical site, cleansed with saline solution, packed with iodoform and dressed with adaptic, dsd, abd, kerlix and light ROSENDA -Patient given pain medication prior dressing change. -Instructed to keep dressing c/d/i. Do not get wet -F/U OR wound culture -F/U OR bone biopsy to confirm OM Pt reports history of right foot injury/old fracture -Podiatry recommends 4-6 weeks IV abx for +OM, PICC line -Patient does not have insurance. Recommends abx that can be given once or twice daily at the infusion center -Patient may WBAT to the right LE in surgical shoe -Pain control per medical team. Pt has hx of polysubstance abuse Currently Morphine 2mg Q4h for severe pain & Motrin for breakthrough pain. -Podiatry will continue to follow pt while inhouse <Bird Santiago - Last Filed: 10/10/17 07:43> Objective - Vital Signs/Intake and Output Vital Signs (last 24 hours): Temp Pulse Resp BP Pulse Ox 98.7 F 67 20 116/77 99 10/09/17 15:07 10/09/17 15:07 10/09/17 15:07 10/09/17 15:07 10/09/17 15:07 Intake and Output: 10/10/17 10/10/17 06:59 18:59 Intake Total 1260 Balance 1260 - Medications Medications: Current Medications Acetaminophen (Tylenol 325mg Tab) 325 mg PO Q4H PRN PRN Reason: Pain, Mild (1-3) Heparin Sodium (Porcine) (Heparin) 5,000 units SC Q8 [facility] PRN Reason: Protocol Last Admin: 10/07/17 06:34 Dose: 5,000 units Nafcillin Sodium 2 gm/ Sodium (Chloride) 100 mls @ 100 mls/hr IVPB Q6 [facility] PRN Reason: Protocol Stop: 11/06/17 00:01 Last Admin: 10/10/17 05:53 Dose: 100 mls/hr Ibuprofen (Motrin Tab) 600 mg PO Q6H PRN PRN Reason: Pain, moderate (4-7) Last Admin: 10/09/17 19:30 Dose: 600 mg Morphine Sulfate (Morphine) 4 mg IVP Q4H PRN PRN Reason: Pain, severe (8-10) Last Admin: 10/10/17 05:52 Dose: 4 mg Nicotine (Nicoderm Cq) 1 patch TD DAILY [facility] Last Admin: 10/09/17 09:39 Dose: 1 patch Oxycodone/Acetaminophen (Percocet 5/325 Mg Tab) 1 tab PO Q4H PRN PRN Reason: Pain, moderate (4-7) Stop: 10/10/17 18:17 Last Admin: 10/10/17 00:15 Dose: 1 tab Pantoprazole Sodium (Protonix Ec Tab) 40 mg PO 0600 [facility] Last Admin: 10/10/17 06:09 Dose: 40 mg - Labs Labs: 10/10/17 06:45 10/09/17 06:41 Attending/Attestation - Attestation I have personally seen and examined this patient.: Yes I have fully participated in the care of the patient.: Yes I have reviewed all pertinent clinical information, including history, physical exam and plan: Yes
[2017-10-08] MEDS: Nafcillin 2 GM in Sodium Chloride 0.9% 100 ML IVPB SCH (23:00)
--- NOTE | 2017-10-09 00:11 | PN ---
DATE: 10/08/2017 SUBJECTIVE: The patient is in bed, in no acute distress. PHYSICAL EXAMINATION: Temperature is 97, blood pressure is 120/80, respiratory rate of 20. HEENT: Examination of HEENT is unremarkable. NECK: Supple. LUNGS: Have decreased breath sounds. HEART: Normal S1, S2. ABDOMEN: Soft, nontender. LABORATORY DATA: Laboratory examination reveals a white count of 8.9, hemoglobin of 10 and platelets is noted. BUN of 24, creatinine of 1.0. Urinalysis is noted. Vanco trough is 10. Toxicology reveals positive for cocaine metabolites and opiate screen is positive. HIV is negative. Microbiology reveals the blood cultures are positive for coag, Staph aureus by PNA-FISH. Oxacillin sensitive. The foot culture is positive for gram-positive cocci. The repeat blood cultures from 10/05/2017 and 10/07/2017, there are no growth. The patient was taken to the OR yesterday, had an incision and drainage of the right foot abscess by Dr. Murillo. ASSESSMENT AND PLAN: A 37-year-old male who was seen early this morning in 566, bed 1 with sepsis with Staphylococcus aureus bacteremia secondary to a right foot skin and skin structure with associated osteomyelitis, which is reported to be a sensitive Staphylococcus aureus with oxacillin sensitivity and of less than 0.25 EDWIN and vancomycin that has been 0.5. We will discontinue the meropenem and discontinue the vancomycin since the patient does not have any allergies. We will start the patient on nafcillin at 2 g IV q. 6 hours. Will need at least 28 days for osteomyelitis. The patient did have an MRI of the foot suspicious for osteomyelitis. Mayur Coleman MD
[2017-10-09] MEDS: Morphine 4 mg/ml ISec SC PRN (03:21)
[2017-10-09] MEDS: Pantoprazole 40 mg EC Tab PO SCH (05:53)
[2017-10-09] MEDS: Nafcillin 2 GM in Sodium Chloride 0.9% 100 ML IVPB SCH ×4 (05:53→23:02)
[2017-10-09] MEDS: Oxycodone/Acetaminophen 5/325 mg Tab PO PRN ×3 (05:53→19:28)
[2017-10-09 06:51] LABS: BASO # 0.02 K/mm3 (0.0-2.0); BASO % 0.3 % (0.0-3.0); EOS # 0.2 (0.0-0.7); EOS % 2.1 % (1.5-5.0); GRAN # 4.5 (1.4-6.5); GRAN % 62.7 % (50.0-68.0); HEMOGLOBIN 11.1 g/dL (14.0-18.0); LYMPH # 2.1 (1.2-3.4); LYMPH % 29.1 % (22.0-35.0); MEAN CELL VOLUME 90.2 fl (80.0-105.0); MEAN CORPUSCULAR HEMOGLOBIN 29.4 pg (25.0-35.0); MEAN CORPUSCULAR HGB CONC 32.6 g/dl (31.0-37.0); MEAN PLATELET VOLUME 10.2 fl (7.0-11.0); MONO # 0.4 (0.1-0.6); MONO % 5.8 % (1.0-6.0); RBC 3.77 10^6/uL (3.5-6.1); RED CELL DISTRIBUTION WIDTH 12.4 % (11.5-14.5); WHITE BLOOD COUNT 7.2 10^3/ul (4.5-11.0)
[2017-10-09 07:30] LABS: ALB/GLOB RATIO 1.1 (1.1-1.8); ALBUMIN 3.4 g/dL (3.0-4.8); ALT/SGPT 26 U/L (7-56); AST/SGOT 16 U/L (17-59); BLOOD UREA NITROGEN 14 mg/dL (7-21); CALCIUM 9.1 mg/dL (8.4-10.5); GFR AFRICAN-AMERICAN > 60; GFR NON-AFRICAN AMERICAN > 60
--- NOTE | 2017-10-09 08:15 | CON ---
DATE: 10/08/2017 HISTORY OF PRESENT ILLNESS: The patient is a 37-year-old male who presents with swelling in his right lower extremities. He has been treated with IV antibiotics and discharged on oral Bactrim. He apparently had a fall which resulted in wounds in his head which was stitched. The patient is currently on oxycodone for chronic pain. He smokes, he is an active smoker. No previous cardiac history. His echocardiogram revealed good LV function in the right atrium, there is a density noted, which a vegetation cannot be ruled out. PHYSICAL EXAMINATION: VITAL SIGNS: Stable. NECK: Negative JVD. LUNGS: Without rales. HEART: Reveals S1 and S2. EXTREMITIES: Without edema. The right lower extremity is bandaged. LABORATORY DATA: Hemoglobin is 10.9, white count is 8.9. Chemistries, BUN and creatinine unremarkable. IMPRESSION: 1. Persistent cellulitis of the lower extremity. 2. Likely chronic obstructive pulmonary disease for his active smoking. 3. Chronic oxycodone administration. 4. Cannot rule out a vegetation. PLAN: Given these findings, I have discussed with the patient about the risks, benefits of a MILTON. I have discussed with the patient and outlined both risks as well as benefits. The patient would like to think about it and consider possible MILTON. We will allow him to think about it over the next 24 hours. Thong Merritt MD
[2017-10-09] MEDS: Morphine 4 mg/ml ISec IVP PRN ×4 (08:25→21:09)
--- NOTE | 2017-10-09 10:25 | CP.PCM.PN ---
<Mello Novak - Last Filed: 10/09/17 10:48> Subjective - Date & Time of Evaluation Date of Evaluation: 10/09/17 Time of Evaluation: 06:00 - Subjective Subjective: Patient seen and examined at bedside in pleasant mood. Is aware of the length of course of antibiotics. States he experiences severe pain with dressing changes aside from that pain is well controlled. Denies fevers, chills, shortness of breath, headaches, body aches, nausea, vomiting, diarrhea. Objective - Vital Signs/Intake and Output Vital Signs (last 24 hours): Temp Pulse Resp BP Pulse Ox 98.1 F 64 20 117/80 96 10/09/17 07:49 10/09/17 07:49 10/09/17 07:49 10/09/17 07:49 10/09/17 07:49 Intake and Output: 10/09/17 10/09/17 06:59 18:59 Intake Total 960 Balance 960 - Medications Medications: Current Medications Acetaminophen (Tylenol 325mg Tab) 325 mg PO Q4H PRN PRN Reason: Pain, Mild (1-3) Heparin Sodium (Porcine) (Heparin) 5,000 units SC Q8 [facility] PRN Reason: Protocol Last Admin: 10/07/17 06:34 Dose: 5,000 units Nafcillin Sodium 2 gm/ Sodium (Chloride) 100 mls @ 100 mls/hr IVPB Q6 [facility] PRN Reason: Protocol Stop: 11/06/17 00:01 Last Admin: 10/09/17 05:53 Dose: 100 mls/hr Ibuprofen (Motrin Tab) 600 mg PO Q6H PRN PRN Reason: Pain, moderate (4-7) Last Admin: 10/09/17 05:53 Dose: 600 mg Morphine Sulfate (Morphine) 4 mg IVP Q4H PRN PRN Reason: Pain, severe (8-10) Last Admin: 10/09/17 08:25 Dose: 4 mg Nicotine (Nicoderm Cq) 1 patch TD DAILY [facility] Last Admin: 10/09/17 09:39 Dose: 1 patch Oxycodone/Acetaminophen (Percocet 5/325 Mg Tab) 1 tab PO Q4H PRN PRN Reason: Pain, moderate (4-7) Stop: 10/10/17 18:17 Last Admin: 10/08/17 11:10 Dose: 1 tab Pantoprazole Sodium (Protonix Ec Tab) 40 mg PO 0600 [facility] Last Admin: 10/09/17 05:53 Dose: 40 mg - Labs Labs: 10/09/17 06:41 10/09/17 06:41 - Constitutional Appears: Non-toxic, No Acute Distress - Head Exam Head Exam: ATRAUMATIC, NORMAL INSPECTION, NORMOCEPHALIC - Eye Exam Eye Exam: EOMI, Normal appearance - ENT Exam ENT Exam: Mucous Membranes Moist, Normal Exam - Neck Exam Neck Exam: Normal Inspection - Respiratory Exam Respiratory Exam: Clear to Ausculation Bilateral, NORMAL BREATHING PATTERN. absent: Chest Wall Tenderness, Rhonchi, Wheezes - Cardiovascular Exam Cardiovascular Exam: REGULAR RHYTHM, +S1, +S2 - GI/Abdominal Exam GI & Abdominal Exam: Soft, Normal Bowel Sounds. 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 - Right foot MRI reveals osteomyelitis, I&D done. Cultures sent: anaerobic/ aerobic blood wound AFB cultures, gram stain Right Atrial vegetation -noted on echo, discussed MILTON with patient -patient requests to hold off on MILTON at this moment Hx of recent NSAID use: - Protonix - monitor for symptoms of gastritis/GERD - Avoid further high doses of NSAIDs Hx of Polysubstance abuse: - Urine drug screen positive for opioids and cocaine - Advised cessation Hx of Tobacco use: - Advised cessation - Nicotine patch Hx of previous fractures/back pain: - Continue morphine 2mg Q4h for severe pain - Motrin for breakthrough pain PPX: Heparin sq, Protonix <Rangasamy,Ajantha - Last Filed: 10/10/17 14:34> Objective - Vital Signs/Intake and Output Vital Signs (last 24 hours): Temp Pulse Resp BP Pulse Ox 98.4 F 60 20 117/66 99 10/10/17 07:30 10/10/17 07:30 10/10/17 07:30 10/10/17 07:30 10/10/17 07:30 Intake and Output: 10/10/17 10/10/17 06:59 18:59 Intake Total 1260 Balance 1260 - Medications Medications: Current Medications Acetaminophen (Tylenol 325mg Tab) 325 mg PO Q4H PRN PRN Reason: Pain, Mild (1-3) Heparin Sodium (Porcine) (Heparin) 5,000 units SC Q8 [facility] PRN Reason: Protocol Last Admin: 10/07/17 06:34 Dose: 5,000 units Nafcillin Sodium 2 gm/ Sodium (Chloride) 100 mls @ 100 mls/hr IVPB Q6 [facility] PRN Reason: Protocol Stop: 11/06/17 00:01 Last Admin: 10/10/17 13:00 Dose: 100 mls/hr Ibuprofen (Motrin Tab) 600 mg PO Q6H PRN PRN Reason: Pain, moderate (4-7) Last Admin: 10/10/17 13:06 Dose: 600 mg Lactobacillus Acidophilus (Bacid Acidophilus) 1 cap PO BID [facility] Last Admin: 10/10/17 10:05 Dose: 1 cap Morphine Sulfate (Morphine) 4 mg IVP Q4H PRN PRN Reason: Pain, severe (8-10) Last Admin: 10/10/17 10:04 Dose: 4 mg Nicotine (Nicoderm Cq) 1 patch TD DAILY [facility] Last Admin: 10/10/17 10:05 Dose: 1 patch Oxycodone/Acetaminophen (Percocet 5/325 Mg Tab) 1 tab PO Q4H PRN PRN Reason: Pain, moderate (4-7) Stop: 10/10/17 18:17 Last Admin: 10/10/17 00:15 Dose: 1 tab Pantoprazole Sodium (Protonix Ec Tab) 40 mg PO 0600 [facility] Last Admin: 10/10/17 06:09 Dose: 40 mg - Labs Labs: 10/10/17 06:45 10/10/17 06:45 Attending/Attestation - Attestation I have personally seen and examined this patient.: Yes I have fully participated in the care of the patient.: Yes I have reviewed all pertinent clinical information, including history, physical exam and plan: Yes Notes (Text): 10/10/17 14:31 Attending note ; Patient seen and examined with resident . 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 He has leukocytosis and complains of severe pain in the right foot. MRI revealed osteomyelitis. ID evaluation appreciated. Culture is positive for MSSA. Currently on IV Ancef. Bone biopsy is positive for acute osteomyelitis. Status post incision and drainage by podiatry Dr. Murillo. Continue dressing change. Patient needs long-term anti-biotics. PICC line is not an option due to recent active IV drug abuse. Also patient needs to 4 times a day IV anti-biotics. Outpatient clinic is not an option. Active smoking ; smoking cessation is strongly advised . narcotic cessation counselling provided. Anxiety/surviver's guilt; patient is requesting anxiolytics .psychiatric evaluation requested . Case discussed with [employer]/social and political studies professor in detail for discharge planning. Upon discharge patient will follow up with Dr Collins. 10/10/17 14:34
--- NOTE | 2017-10-09 11:56 | CP.PCM.PN ---
<Umberto Rivera - Last Filed: 10/09/17 20:17> Subjective - Date & Time of Evaluation Date of Evaluation: 10/09/17 Time of Evaluation: 10:00 - Subjective Subjective: Podiatry Progress Note- Dr. Murillo 37 y.o male seen 2 days s/p incision and drainage of right foot abscess, with cellulitis and OM, and debridement of all nonviable tissue. Patient is seen resting comfortably in bed, in NAD, and AA0x3. Patient denies acute overnight events. Patient denies nausea,fevers, shortness of breath, chest pain, nausea or vomiting. Patient reports severe pain with dressing change. Patient given morphine prior to dressing changes to help relieve pain. Patient reports foot is painful when he moves it. Patient denies calf tenderness or pain. Objective - Vital Signs/Intake and Output Vital Signs (last 24 hours): Temp Pulse Resp BP Pulse Ox 98.1 F 64 20 117/80 96 10/09/17 07:49 10/09/17 07:49 10/09/17 07:49 10/09/17 07:49 10/09/17 07:49 Intake and Output: 10/09/17 10/09/17 06:59 18:59 Intake Total 960 Balance 960 - Medications Medications: Current Medications Acetaminophen (Tylenol 325mg Tab) 325 mg PO Q4H PRN PRN Reason: Pain, Mild (1-3) Heparin Sodium (Porcine) (Heparin) 5,000 units SC Q8 [facility] PRN Reason: Protocol Last Admin: 10/07/17 06:34 Dose: 5,000 units Nafcillin Sodium 2 gm/ Sodium (Chloride) 100 mls @ 100 mls/hr IVPB Q6 [facility] PRN Reason: Protocol Stop: 11/06/17 00:01 Last Admin: 10/09/17 05:53 Dose: 100 mls/hr Ibuprofen (Motrin Tab) 600 mg PO Q6H PRN PRN Reason: Pain, moderate (4-7) Last Admin: 10/09/17 05:53 Dose: 600 mg Morphine Sulfate (Morphine) 4 mg IVP Q4H PRN PRN Reason: Pain, severe (8-10) Last Admin: 10/09/17 08:25 Dose: 4 mg Nicotine (Nicoderm Cq) 1 patch TD DAILY [facility] Last Admin: 10/09/17 09:39 Dose: 1 patch Oxycodone/Acetaminophen (Percocet 5/325 Mg Tab) 1 tab PO Q4H PRN PRN Reason: Pain, moderate (4-7) Stop: 10/10/17 18:17 Last Admin: 10/09/17 10:27 Dose: 1 tab Pantoprazole Sodium (Protonix Ec Tab) 40 mg PO 0600 [facility] Last Admin: 10/09/17 05:53 Dose: 40 mg - Labs Labs: 10/09/17 06:41 10/09/17 06:41 - Constitutional Appears: Well, Non-toxic, No Acute Distress - Extremities Exam Extremities Exam: absent: Calf Tenderness Additional comments: Right lower extremity focused. VASC: DP and PT pulses are fully palpable graded 2/4 respectively. CFT < 3 seconds x 10 digits. Temperature runs warm to cool proximal to distal. Mild edema noted to the right foot DERM: Surgical site remains opened with iodoform packing. Wound base of surgical site is 100% granular, no odor, no active purulence drainage, mild serosangious drainage noted, no calor, erythema to the surrounding surgical site. MUSCK: Severe pain with palpation to surgical site NEURO: gross and protective sensation intact - Neurological Exam Neurological Exam: Alert, Awake, Oriented x3 - Psychiatric Exam Psychiatric exam: Normal Affect, Normal Mood Assessment and Plan - Assessment and Plan (Free Text) Assessment: 37 y.o male 2 days s/p I&D and debridement of all nonviable tissue of right foot abscess with cellulitis and OM Plan: -Pt seen and evaluated with attending Dr. Murillo -Chart, lab, vitals reviewed- Afebrile, absent leukocytosis -Continue IV abx per ID recommendations; currently Merrem and Vanco -Right foot MRI reveals dorsal midfoot abscess and potential 1st metatarsal and medial cuneiform osteomyelitis -Patient is 2 days s/p I&D of right foot abscess -Packing removed from surgical site, cleansed with saline solution, packed with iodoform and dressed with adaptic, dsd, abd, kerlix and light ROSENDA -Patient given pain medication prior dressing change. -Instructed to keep dressing c/d/i. Do not get wet -F/U OR wound culture-S. Aureus -F/U OR bone biopsy to confirm OM Pt reports history of right foot injury/old fracture -Abx per ID, continue Vanco and Merrem -Patient does not have insurance. Recommends abx that can be given once or twice daily at the infusion center -Patient may WBAT in surgical shoe to right foot -Pain control per medical team. Pt has hx of polysubstance abuse Currently Morphine 2mg Q4h for severe pain & Motrin for breakthrough pain. -Podiatry will continue to follow pt while inhouse <Maida Murillo - Last Filed: 10/20/17 14:28> Objective - Vital Signs/Intake and Output Vital Signs (last 24 hours): Temp Pulse Resp BP Pulse Ox 98.1 F 66 20 127/69 97 10/20/17 07:30 10/20/17 07:30 10/20/17 07:30 10/20/17 07:30 10/20/17 07:30 Intake and Output: 10/20/17 10/20/17 06:59 18:59 Intake Total 1560 Balance 1560 - Medications Medications: Current Medications Acetaminophen (Tylenol 325mg Tab) 325 mg PO Q4H PRN PRN Reason: Pain, Mild (1-3) Docusate Sodium (Colace) 100 mg PO BID [facility] Last Admin: 10/20/17 09:36 Dose: Not Given Famotidine (Pepcid) 20 mg PO 1000,2200 [facility] Last Admin: 10/20/17 09:37 Dose: Not Given Gabapentin (Neurontin) 100 mg PO TID [facility] PRN Reason: Protocol Last Admin: 10/20/17 09:35 Dose: Not Given Heparin Sodium (Porcine) (Heparin) 5,000 units SC Q12 [facility] PRN Reason: Protocol Last Admin: 10/20/17 09:37 Dose: Not Given Cefazolin Sodium 2 gm/ Sodium (Chloride) 100 mls @ 200 mls/hr IVPB Q8 [facility] PRN Reason: Protocol Stop: 11/15/17 22:01 Last Admin: 10/20/17 06:37 Dose: 200 mls/hr Ibuprofen (Motrin Tab) 600 mg PO Q6H PRN PRN Reason: Pain, moderate (4-7) Last Admin: 10/18/17 17:06 Dose: 600 mg Lactobacillus Acidophilus (Bacid Acidophilus) 1 cap PO BID [facility] Last Admin: 10/20/17 09:36 Dose: Not Given Nicotine (Nicoderm Cq) 1 patch TD DAILY [facility] Last Admin: 10/20/17 09:35 Dose: 1 patch Oxycodone HCl (Oxycodone Immediate Release Tab) 30 mg PO Q4H PRN PRN Reason: Pain, severe (8-10) Last Admin: 10/20/17 11:08 Dose: 30 mg Pantoprazole Sodium (Protonix Ec Tab) 40 mg PO 0600 [facility] Last Admin: 10/18/17 05:41 Dose: 40 mg - Labs Labs: 10/18/17 11:40 10/18/17 11:40 Attending/Attestation - Attestation I have personally seen and examined this patient.: Yes I have fully participated in the care of the patient.: Yes I have reviewed all pertinent clinical information, including history, physical exam and plan: Yes
--- NOTE | 2017-10-09 14:31 | PN ---
DATE: 10/09/2017 CARDIOLOGY FOLLOWUP SUBJECTIVE: The patient is without symptoms. PHYSICAL EXAMINATION: VITAL SIGNS: The patient is afebrile. Blood pressure is 117/80. NECK: Negative JVD. LUNGS: Without rales. HEART: Reveals S1, S2. EXTREMITIES: Without edema. LABORATORY DATA: White count is 7.2. Chemistries: BUN and creatinine are unremarkable. ASSESSMENT AND PLAN: The patient has had 24 hours to think about risks, benefits of a MILTON. The patient has decided against a MILTON and he has discussed this with his friends and family. He understands the implications. He is going to take antibiotics. No MILTON planned given the patient's refusal. We will sign off the case today. Thong Merritt MD
[2017-10-10] MEDS: Oxycodone/Acetaminophen 5/325 mg Tab PO PRN (00:15)
[2017-10-10] MEDS: Morphine 4 mg/ml ISec IVP PRN ×5 (01:10→23:35)
--- NOTE | 2017-10-10 03:31 | PN ---
DATE: 10/09/2017 SUBJECTIVE: The patient is in bed, in no acute distress. PHYSICAL EXAMINATION: VITAL SIGNS: On exam, temperature is 98, blood pressure is 116/70, respiratory rate of 20. HEENT: Examination of HEENT is unremarkable. NECK: Supple. LUNGS: Have decreased breath sounds. HEART: Exam is normal S1, S2. ABDOMEN: Examination is soft, nontender. LABORATORY DATA: Laboratory examination reveals a white count of 7.2, hemoglobin of 11, platelets of 288. Chemistry reveals a BUN of 14, creatinine of 0.8. Urinalysis is noted. HIV is negative. Microbiology is noted with Staphylococcus aureus in the blood, Staphylococcus aureus in the foot. Dr. Thong Merritt's note is reviewed. progress note is reviewed. Patient's bone pathology is also reviewed, acute osteomyelitis. Patient did have a transthoracic echo, read by Dr. Whalen, which states that his right atrial echodensity noted a vegetation versus the catheter tip. note is also reviewed. 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 I saw the patient early this morning, patient is admitted with sepsis with a sensitive Staphylococcus aureus bacteremia in the right foot skin structure associated with osteomyelitis and questionable echocardiogram finding with vegetations. Patient does admit to being an active intravenous drug abuser, last use probably, he states 2 to 3 weeks ago and he will need 4 to 6 weeks of intravenous antibiotic. We would not advise giving this patient a PICC line because of his active intravenous drug abuse. Last blood cultures that were negative were on 10/07/2017. Today is day #3 of at least 28 days of nafcillin. Weekly CBC, SMA-18, sed rate, C-reactive protein. Strongly advised putting a PICC line in this patient since he is an active intravenous drug abuser. Mayur Coleman MD
[2017-10-10] MEDS: Nafcillin 2 GM in Sodium Chloride 0.9% 100 ML IVPB SCH ×3 (05:53→17:17)
[2017-10-10] MEDS: Pantoprazole 40 mg EC Tab PO SCH (06:09)
[2017-10-10 07:27] LABS: BASO # 0.02 K/mm3 (0.0-2.0); BASO % 0.3 % (0.0-3.0); EOS # 0.1 (0.0-0.7); EOS % 2.1 % (1.5-5.0); GRAN # 4.18 (1.4-6.5); GRAN % 62.7 % (50.0-68.0); HEMOGLOBIN 11.2 g/dL (14.0-18.0); LYMPH % 29.3 % (22.0-35.0); MEAN CELL VOLUME 90.3 fl (80.0-105.0); MEAN CORPUSCULAR HEMOGLOBIN 29.5 pg (25.0-35.0); MEAN CORPUSCULAR HGB CONC 32.7 g/dl (31.0-37.0); MEAN PLATELET VOLUME 10.3 fl (7.0-11.0); MONO # 0.4 (0.1-0.6); MONO % 5.6 % (1.0-6.0); RBC 3.8 10^6/uL (3.5-6.1); RED CELL DISTRIBUTION WIDTH 12.3 % (11.5-14.5); WHITE BLOOD COUNT 6.7 10^3/ul (4.5-11.0)
[2017-10-10 07:52] LABS: ALB/GLOB RATIO 1.1 (1.1-1.8); ALBUMIN 3.3 g/dL (3.0-4.8); ALT/SGPT 29 U/L (7-56); AST/SGOT 30 U/L (17-59); BLOOD UREA NITROGEN 20 mg/dL (7-21); CALCIUM 9.2 mg/dL (8.4-10.5); GFR AFRICAN-AMERICAN > 60; GFR NON-AFRICAN AMERICAN > 60
--- NOTE | 2017-10-10 10:00 | CP.PCM.PN ---
<Umberto Rivera - Last Filed: 10/10/17 10:50> Subjective - Date & Time of Evaluation Date of Evaluation: 10/10/17 Time of Evaluation: 09:00 - Subjective Subjective: Podiatry Progress Note- Dr. Murillo 37 y.o male seen 3 days s/p incision and drainage of right foot abscess, with cellulitis and OM, and debridement of all nonviable tissue. Friend was at bedside during visitation. Patient is seen resting comfortably in bed, in NAD, and AA0x3. Patient reports pain to the right foot when he moves it and with dressing changes. Patient denies acute overnight events. Patient denies nausea, fevers, shortness of breath, chest pain, nausea or vomiting. Patient denies calf tenderness or pain. Second visitation made to see patient to discuss treatment plans, including bone biopsy results. Patient appears sad and in tears. Reports that he has been going through a lot recently including the loss of close friend. Objective - Vital Signs/Intake and Output Vital Signs (last 24 hours): Temp Pulse Resp BP Pulse Ox 98.4 F 60 20 117/66 99 10/10/17 07:30 10/10/17 07:30 10/10/17 07:30 10/10/17 07:30 10/10/17 07:30 Intake and Output: 10/10/17 10/10/17 06:59 18:59 Intake Total 1260 Balance 1260 - Medications Medications: Current Medications Acetaminophen (Tylenol 325mg Tab) 325 mg PO Q4H PRN PRN Reason: Pain, Mild (1-3) Heparin Sodium (Porcine) (Heparin) 5,000 units SC Q8 [facility] PRN Reason: Protocol Last Admin: 10/07/17 06:34 Dose: 5,000 units Nafcillin Sodium 2 gm/ Sodium (Chloride) 100 mls @ 100 mls/hr IVPB Q6 [facility] PRN Reason: Protocol Stop: 11/06/17 00:01 Last Admin: 10/10/17 05:53 Dose: 100 mls/hr Ibuprofen (Motrin Tab) 600 mg PO Q6H PRN PRN Reason: Pain, moderate (4-7) Last Admin: 10/09/17 19:30 Dose: 600 mg Lactobacillus Acidophilus (Bacid Acidophilus) 1 cap PO BID [facility] Morphine Sulfate (Morphine) 4 mg IVP Q4H PRN PRN Reason: Pain, severe (8-10) Last Admin: 10/10/17 05:52 Dose: 4 mg Nicotine (Nicoderm Cq) 1 patch TD DAILY [facility] Last Admin: 10/09/17 09:39 Dose: 1 patch Oxycodone/Acetaminophen (Percocet 5/325 Mg Tab) 1 tab PO Q4H PRN PRN Reason: Pain, moderate (4-7) Stop: 10/10/17 18:17 Last Admin: 10/10/17 00:15 Dose: 1 tab Pantoprazole Sodium (Protonix Ec Tab) 40 mg PO 0600 [facility] Last Admin: 10/10/17 06:09 Dose: 40 mg - Labs Labs: 10/10/17 06:45 10/10/17 06:45 - Constitutional Appears: Well, Non-toxic, No Acute Distress - Extremities Exam Extremities Exam: absent: Calf Tenderness Additional comments: Right lower extremity focused. VASC: DP and PT pulses are fully palpable graded 2/4 respectively. CFT < 3 seconds x 10 digits. Temperature runs warm to cool proximal to distal. Mild edema noted to the right foot DERM: Surgical site is filling in and granulating. Wound base of surgical site is 100% granular, no odor, no active purulence drainage, mild serosangious drainage noted, no calor, erythema to the surrounding surgical site. MUSCK: Severe pain with palpation to surgical site NEURO: gross and protective sensation intact - Neurological Exam Neurological Exam: Alert, Awake - Psychiatric Exam Psychiatric exam: Normal Affect Assessment and Plan - Assessment and Plan (Free Text) Assessment: 37 y.o male 3 days s/p I&D and debridement of all nonviable tissue of right foot abscess with cellulitis and OM Plan: -Pt seen and evaluated with attending Dr. Murillo -Chart, lab, vitals reviewed- Afebrile, absent leukocytosis -Right foot MRI reveals dorsal midfoot abscess and potential 1st metatarsal and medial cuneiform osteomyelitis -Patient is 3 days s/p I&D of right foot abscess -Packing removed from surgical site, cleansed with saline solution and dressed with optifoam -Discontinue packing; wound is granulating in -Will close wound tomorrow morning at bedside -will order lidocaine plain and provide local block prior to suturing and primary closure of wound -Instructed to keep dressing c/d/i. Do not get wet -OR wound culture-S. Aureus -Bone biopsy- acute OM -ECHO with vegetations Patient refused MILTON -Continue IV Abx per ID Strongly advise against PICC line, pt is active IV drug abuser -Patient may WBAT in surgical shoe to right foot -Pain control per medical team. Pt has hx of polysubstance abuse Currently Morphine 2mg Q4h for severe pain & Motrin for breakthrough pain. -Recommends psych consult -Podiatry will continue to follow pt while inhouse <Maida Murillo - Last Filed: 10/20/17 14:31> Objective - Vital Signs/Intake and Output Vital Signs (last 24 hours): Temp Pulse Resp BP Pulse Ox 98.1 F 66 20 127/69 97 10/20/17 07:30 10/20/17 07:30 10/20/17 07:30 10/20/17 07:30 10/20/17 07:30 Intake and Output: 10/20/17 10/20/17 06:59 18:59 Intake Total 1560 Balance 1560 - Medications Medications: Current Medications Acetaminophen (Tylenol 325mg Tab) 325 mg PO Q4H PRN PRN Reason: Pain, Mild (1-3) Docusate Sodium (Colace) 100 mg PO BID [facility] Last Admin: 10/20/17 09:36 Dose: Not Given Famotidine (Pepcid) 20 mg PO 1000,2200 [facility] Last Admin: 10/20/17 09:37 Dose: Not Given Gabapentin (Neurontin) 100 mg PO TID [facility] PRN Reason: Protocol Last Admin: 10/20/17 09:35 Dose: Not Given Heparin Sodium (Porcine) (Heparin) 5,000 units SC Q12 [facility] PRN Reason: Protocol Last Admin: 10/20/17 09:37 Dose: Not Given Cefazolin Sodium 2 gm/ Sodium (Chloride) 100 mls @ 200 mls/hr IVPB Q8 [facility] PRN Reason: Protocol Stop: 11/15/17 22:01 Last Admin: 10/20/17 06:37 Dose: 200 mls/hr Ibuprofen (Motrin Tab) 600 mg PO Q6H PRN PRN Reason: Pain, moderate (4-7) Last Admin: 10/18/17 17:06 Dose: 600 mg Lactobacillus Acidophilus (Bacid Acidophilus) 1 cap PO BID [facility] Last Admin: 10/20/17 09:36 Dose: Not Given Nicotine (Nicoderm Cq) 1 patch TD DAILY [facility] Last Admin: 10/20/17 09:35 Dose: 1 patch Oxycodone HCl (Oxycodone Immediate Release Tab) 30 mg PO Q4H PRN PRN Reason: Pain, severe (8-10) Last Admin: 10/20/17 11:08 Dose: 30 mg Pantoprazole Sodium (Protonix Ec Tab) 40 mg PO 0600 [facility] Last Admin: 10/18/17 05:41 Dose: 40 mg - Labs Labs: 10/18/17 11:40 10/18/17 11:40 Attending/Attestation - Attestation I have personally seen and examined this patient.: Yes I have fully participated in the care of the patient.: Yes I have reviewed all pertinent clinical information, including history, physical exam and plan: Yes
[2017-10-10] MEDS: Lactobacillus Acidophilus 500 MU Cap PO SCH ×2 (10:05→17:45)
--- NOTE | 2017-10-10 14:51 | CP.PCM.PN ---
<Mello Novak - Last Filed: 10/10/17 15:05> Subjective - Date & Time of Evaluation Date of Evaluation: 10/10/17 Time of Evaluation: 14:49 - Subjective Subjective: Patient seen and examined at bedside in no acute distress. Patient states he is tolerating pain better than before. Denies fevers, chills, nausea, vomiting, diarrhea, shortness of breath, chest pain. Admits to anxiety, grieving. Objective - Vital Signs/Intake and Output Vital Signs (last 24 hours): Temp Pulse Resp BP Pulse Ox 98.4 F 60 20 117/66 99 10/10/17 07:30 10/10/17 07:30 10/10/17 07:30 10/10/17 07:30 10/10/17 07:30 Intake and Output: 10/10/17 10/10/17 06:59 18:59 Intake Total 1260 Balance 1260 - Medications Medications: Current Medications Acetaminophen (Tylenol 325mg Tab) 325 mg PO Q4H PRN PRN Reason: Pain, Mild (1-3) Heparin Sodium (Porcine) (Heparin) 5,000 units SC Q8 [facility] PRN Reason: Protocol Last Admin: 10/07/17 06:34 Dose: 5,000 units Nafcillin Sodium 2 gm/ Sodium (Chloride) 100 mls @ 100 mls/hr IVPB Q6 [facility] PRN Reason: Protocol Stop: 11/06/17 00:01 Last Admin: 10/10/17 13:00 Dose: 100 mls/hr Ibuprofen (Motrin Tab) 600 mg PO Q6H PRN PRN Reason: Pain, moderate (4-7) Last Admin: 10/10/17 13:06 Dose: 600 mg Lactobacillus Acidophilus (Bacid Acidophilus) 1 cap PO BID [facility] Last Admin: 10/10/17 10:05 Dose: 1 cap Morphine Sulfate (Morphine) 4 mg IVP Q4H PRN PRN Reason: Pain, severe (8-10) Last Admin: 10/10/17 10:04 Dose: 4 mg Nicotine (Nicoderm Cq) 1 patch TD DAILY [facility] Last Admin: 10/10/17 10:05 Dose: 1 patch Oxycodone/Acetaminophen (Percocet 5/325 Mg Tab) 1 tab PO Q4H PRN PRN Reason: Pain, moderate (4-7) Stop: 10/10/17 18:17 Last Admin: 10/10/17 00:15 Dose: 1 tab Pantoprazole Sodium (Protonix Ec Tab) 40 mg PO 0600 [facility] Last Admin: 10/10/17 06:09 Dose: 40 mg - Labs Labs: 10/10/17 06:45 10/10/17 06:45 - Constitutional Appears: Non-toxic, No Acute Distress - Head Exam Head Exam: ATRAUMATIC, NORMAL INSPECTION, NORMOCEPHALIC - Eye Exam Eye Exam: EOMI, Normal appearance - ENT Exam ENT Exam: Mucous Membranes Moist - Neck Exam Neck Exam: Normal Inspection - Respiratory Exam Respiratory Exam: Clear to Ausculation Bilateral, NORMAL BREATHING PATTERN - Cardiovascular Exam Cardiovascular Exam: REGULAR RHYTHM, +S1, +S2 - GI/Abdominal Exam GI & Abdominal Exam: Soft, Normal Bowel Sounds - Extremities Exam Additional comments: right foot wrapped in amanda bandage. 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 - Right foot MRI revealed osteomyelitis, I&D done. Cultures sent: repeat blood cultures negative, wound cultures positive for MSSA, AFB cultures negative - Afebrile, Continue with Nafcillin. Patient is currently on day 4 of 28 for treatment course. - White blood cell count continues to downtrend Right Atrial vegetation -noted on echo, discussed MILTON with patient however patient has refused echo Hx of recent NSAID use: - Protonix - monitor for symptoms of gastritis/GERD - Avoid further high doses of NSAIDs Hx of Polysubstance abuse: - Urine drug screen positive for opioids and cocaine - Advised cessation Hx of Tobacco use: - Advised cessation - Nicotine patch Hx of previous fractures/back pain: - Continue morphine 1mg Q4h for severe pain - Motrin for breakthrough pain Anxiety/Survivor's Guilt/Grievance -Patient would like to be seen by psychiatry regarding emotions that he has been left with after loss of his friends -Psychiatry consulted; reccs appreciated PPX: Heparin sq, Protonix <Rangasamy,Ajantha - Last Filed: 10/10/17 15:31> Objective - Vital Signs/Intake and Output Vital Signs (last 24 hours): Temp Pulse Resp BP Pulse Ox 98.4 F 60 20 117/66 99 10/10/17 07:30 10/10/17 07:30 10/10/17 07:30 10/10/17 07:30 10/10/17 07:30 Intake and Output: 10/10/17 10/10/17 06:59 18:59 Intake Total 1260 900 Balance 1260 900 - Medications Medications: Current Medications Acetaminophen (Tylenol 325mg Tab) 325 mg PO Q4H PRN PRN Reason: Pain, Mild (1-3) Heparin Sodium (Porcine) (Heparin) 5,000 units SC Q8 [facility] PRN Reason: Protocol Last Admin: 10/07/17 06:34 Dose: 5,000 units Nafcillin Sodium 2 gm/ Sodium (Chloride) 100 mls @ 100 mls/hr IVPB Q6 [facility] PRN Reason: Protocol Stop: 11/06/17 00:01 Last Admin: 10/10/17 13:00 Dose: 100 mls/hr Ibuprofen (Motrin Tab) 600 mg PO Q6H PRN PRN Reason: Pain, moderate (4-7) Last Admin: 10/10/17 13:06 Dose: 600 mg Lactobacillus Acidophilus (Bacid Acidophilus) 1 cap PO BID [facility] Last Admin: 10/10/17 10:05 Dose: 1 cap Morphine Sulfate (Morphine) 4 mg IVP Q4H PRN PRN Reason: Pain, severe (8-10) Last Admin: 10/10/17 10:04 Dose: 4 mg Nicotine (Nicoderm Cq) 1 patch TD DAILY [facility] Last Admin: 10/10/17 10:05 Dose: 1 patch Oxycodone/Acetaminophen (Percocet 5/325 Mg Tab) 1 tab PO Q4H PRN PRN Reason: Pain, moderate (4-7) Stop: 10/10/17 18:17 Last Admin: 10/10/17 00:15 Dose: 1 tab Pantoprazole Sodium (Protonix Ec Tab) 40 mg PO 0600 [facility] Last Admin: 10/10/17 06:09 Dose: 40 mg - Labs Labs: 10/10/17 06:45 03/08/18 06:45 Attending/Attestation - Attestation I have personally seen and examined this patient.: Yes I have fully participated in the care of the patient.: Yes I have reviewed all pertinent clinical information, including history, physical exam and plan: Yes Notes (Text): 10/10/17 15:31 Attending note ; Patient seen and examined with resident . 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 He has leukocytosis and complains of severe pain in the right foot. MRI revealed osteomyelitis. ID evaluation appreciated. Culture is positive for MSSA. Currently on IV Ancef. Bone biopsy is positive for acute osteomyelitis. Status post incision and drainage by podiatry Dr. Murillo. Continue dressing change. Patient needs long-term anti-biotics. PICC line is not an option due to recent active IV drug abuse. Also patient needs to 4 times a day IV anti-biotics. Outpatient clinic is not an option. Active smoking ; smoking cessation is strongly advised . narcotic cessation counselling provided. Anxiety/surviver's guilt; patient is requesting anxiolytics .psychiatric evaluation requested . Case discussed with major case detective/social work lecturer in detail for discharge planning. Upon discharge patient will follow up with Dr Collins.
--- NOTE | 2017-10-10 22:34 | PN ---
DATE: 10/10/2017 SUBJECTIVE: The patient is in bed, in no acute distress, nontoxic. PHYSICAL EXAMINATION: VITAL SIGNS: Temperature is 98, blood pressure is 130/80, respiratory rate 20. HEENT: Examination of HEENT is unremarkable. NECK: Supple. LUNGS: Have decreased breath sounds. HEART: Normal S1, S2. ABDOMEN: Soft, nontender. No organomegaly. No rebound or guarding. No masses. LABORATORY DATA: Laboratory examination reveals the patient's white count of 6.7, hemoglobin 11, platelets of 255. BUN of 20, creatinine of 0.9. Urinalysis is noted and vancomycin trough is noted and HIV is negative. Microbiology is reviewed. Review of orders revealed the patient to be on nafcillin. ASSESSMENT AND PLAN: A 37-year-old male who was seen earlier this morning with a history of stepping on a fish equipment and admitted with sepsis with a sensitive Staphylococcus aureus bacteremia, right foot skin structure and associated with osteomyelitis and questionable echocardiogram findings with vegetations. The patient does admit to active intravenous drug abuse and would not recommend placing a peripherally inserted central catheter line in this patient who is still an active drug abuser. Today is day #4 of at least 28 days of nafcillin with a weekly CBC, SMA-18, sed rate, C-reactive protein. Mayur Coleman MD
[2017-10-11] MEDS: Nafcillin 2 GM in Sodium Chloride 0.9% 100 ML IVPB SCH ×4 (00:03→17:36)
[2017-10-11] MEDS: Morphine 4 mg/ml ISec IVP PRN (03:30)
[2017-10-11] MEDS: Pantoprazole 40 mg EC Tab PO SCH (05:22)
[2017-10-11] MEDS ORDERED: Bupivacaine 0.25% Inj(30mL) IJ ONE (06:11)
[2017-10-11] MEDS ORDERED: Lidocaine 1% Inj (20ml) IJ STA (07:40)
[2017-10-11] MEDS ORDERED: Morphine 4 mg/ml ISec IVP PRN (07:49)
[2017-10-11] MEDS: Lactobacillus Acidophilus 500 MU Cap PO SCH ×2 (10:28→17:39)
--- NOTE | 2017-10-11 10:56 | CP.PCM.PN ---
<Umberto Rivera - Last Filed: 10/11/17 10:53> Subjective - Date & Time of Evaluation Date of Evaluation: 10/11/17 Time of Evaluation: 09:00 - Subjective Subjective: Podiatry Progress Note- 37 y.o male seen 4 days s/p incision and drainage of right foot abscess, with cellulitis and OM, and debridement of all nonviable tissue. Patient was resting comfortably in bed, appears to be in NAD and AAOx3. Patient denies acute overnight events. Patient denies nausea,fevers, shortness of breath, chest pain , nausea or vomiting. Patient denies calf tenderness or pain. When asked about pain level, patient reports that he does not want to talk about his pain at the moment. Morphine was just given 20 minutes prior to visitation. Objective - Vital Signs/Intake and Output Vital Signs (last 24 hours): Temp Pulse Resp BP Pulse Ox 98.9 F 78 20 128/88 98 10/11/17 07:30 10/11/17 07:30 10/11/17 07:30 10/11/17 07:30 10/11/17 07:30 Intake and Output: 10/11/17 10/11/17 06:59 18:59 Intake Total 360 Balance 360 - Medications Medications: Current Medications Acetaminophen (Tylenol 325mg Tab) 325 mg PO Q4H PRN PRN Reason: Pain, Mild (1-3) Heparin Sodium (Porcine) (Heparin) 5,000 units SC Q8 [facility] PRN Reason: Protocol Last Admin: 10/07/17 06:34 Dose: 5,000 units Nafcillin Sodium 2 gm/ Sodium (Chloride) 100 mls @ 100 mls/hr IVPB Q6 [facility] PRN Reason: Protocol Stop: 11/06/17 00:01 Last Admin: 10/11/17 05:22 Dose: 100 mls/hr Ibuprofen (Motrin Tab) 600 mg PO Q6H PRN PRN Reason: Pain, moderate (4-7) Last Admin: 10/11/17 08:34 Dose: 600 mg Lactobacillus Acidophilus (Bacid Acidophilus) 1 cap PO BID [facility] Last Admin: 10/11/17 10:28 Dose: 1 cap Morphine Sulfate (Morphine) 2 mg IVP Q4H PRN PRN Reason: Pain, severe (8-10) Nicotine (Nicoderm Cq) 1 patch TD DAILY [facility] Last Admin: 10/11/17 10:27 Dose: 1 patch Pantoprazole Sodium (Protonix Ec Tab) 40 mg PO 0600 [facility] Last Admin: 10/11/17 05:22 Dose: 40 mg - Labs Labs: 10/10/17 06:45 10/10/17 06:45 - Constitutional Appears: Well, Non-toxic, No Acute Distress - Extremities Exam Extremities Exam: absent: Calf Tenderness Additional comments: Right lower extremity focused. VASC: DP and PT pulses are fully palpable graded 2/4 respectively. CFT < 3 seconds x 10 digits. Temperature runs warm to cool proximal to distal. Mild edema noted to the right foot DERM: Surgical site is filling in and granulating. Wound base of surgical site is 100% granular, no odor, no active purulence drainage, mild serosangious drainage noted, no calor, erythema to the surrounding surgical site. MUSCK: Severe pain with palpation to surgical site NEURO: gross and protective sensation intact Assessment and Plan - Assessment and Plan (Free Text) Assessment: 37 y.o male 4 days s/p I&D and debridement of all nonviable tissue of right foot abscess with cellulitis and OM Plan: -Pt seen and evaluated with attending Dr. Murillo -Chart, lab, vitals reviewed- Afebrile, absent leukocytosis -Right foot MRI reveals dorsal midfoot abscess and potential 1st metatarsal and medial cuneiform osteomyelitis -Patient is 4 days s/p I&D of right foot abscess -Discussed with patient yesterday about primary closure of wound with sutures in the OR or at bedside. Patient reports he does not want to be NPO and request for the closure to be done at bedside if possible. However this morning, patient refused primary closure of the wound at bedside as well. Patient was given morphine 20 minutes prior. Had plan on a local block prior to suturing, however patient requested additional pain medication. Did not want to overmedicate patient with pain medication in which patient refused primary closure of wound. -Surgical site cleansed with saline solution and dressed with optifoam, dsd, and kerlix. Will heal by secondary intention. -Instructed to keep dressing c/d/i. Do not get wet. Patient may shower as long as he keeps the dressing clean, dry, and intact -OR wound culture-S. Aureus -Bone biopsy- acute OM -ECHO with vegetations Patient refused MILTON -Continue IV Abx per ID Strongly advise against PICC line, pt is active IV drug abuser -Patient may WBAT in surgical shoe to right foot -Pain control per medical team. Pt has hx of polysubstance abuse Currently Morphine 2mg Q4h for severe pain & Motrin for breakthrough pain. -Recommends psych consult -Podiatry will continue to follow pt while inhouse <Maida Murillo - Last Filed: 10/20/17 14:38> Objective - Vital Signs/Intake and Output Vital Signs (last 24 hours): Temp Pulse Resp BP Pulse Ox 98.1 F 66 20 127/69 97 10/20/17 07:30 10/20/17 07:30 10/20/17 07:30 10/20/17 07:30 10/20/17 07:30 Intake and Output: 10/20/17 10/20/17 06:59 18:59 Intake Total 1560 Balance 1560 - Medications Medications: Current Medications Acetaminophen (Tylenol 325mg Tab) 325 mg PO Q4H PRN PRN Reason: Pain, Mild (1-3) Docusate Sodium (Colace) 100 mg PO BID [facility] Last Admin: 10/20/17 09:36 Dose: Not Given Famotidine (Pepcid) 20 mg PO 1000,2200 [facility] Last Admin: 10/20/17 09:37 Dose: Not Given Gabapentin (Neurontin) 100 mg PO TID [facility] PRN Reason: Protocol Last Admin: 10/20/17 09:35 Dose: Not Given Heparin Sodium (Porcine) (Heparin) 5,000 units SC Q12 [facility] PRN Reason: Protocol Last Admin: 10/20/17 09:37 Dose: Not Given Cefazolin Sodium 2 gm/ Sodium (Chloride) 100 mls @ 200 mls/hr IVPB Q8 [facility] PRN Reason: Protocol Stop: 11/15/17 22:01 Last Admin: 10/20/17 06:37 Dose: 200 mls/hr Ibuprofen (Motrin Tab) 600 mg PO Q6H PRN PRN Reason: Pain, moderate (4-7) Last Admin: 10/18/17 17:06 Dose: 600 mg Lactobacillus Acidophilus (Bacid Acidophilus) 1 cap PO BID [facility] Last Admin: 10/20/17 09:36 Dose: Not Given Nicotine (Nicoderm Cq) 1 patch TD DAILY [facility] Last Admin: 10/20/17 09:35 Dose: 1 patch Oxycodone HCl (Oxycodone Immediate Release Tab) 30 mg PO Q4H PRN PRN Reason: Pain, severe (8-10) Last Admin: 10/20/17 11:08 Dose: 30 mg Pantoprazole Sodium (Protonix Ec Tab) 40 mg PO 0600 [facility] Last Admin: 10/18/17 05:41 Dose: 40 mg - Labs Labs: 10/18/17 11:40 10/18/17 11:40 Attending/Attestation - Attestation I have personally seen and examined this patient.: Yes I have fully participated in the care of the patient.: Yes I have reviewed all pertinent clinical information, including history, physical exam and plan: Yes
[2017-10-11] MEDS: Morphine 2 mg/ml ISec IVP PRN ×3 (13:46→22:01)
--- NOTE | 2017-10-11 14:59 | CP.PCM.PN ---
<Mello Novak - Last Filed: 10/11/17 15:01> Subjective - Date & Time of Evaluation Date of Evaluation: 10/11/17 Time of Evaluation: 06:40 - Subjective Subjective: Patient seen and evaluated at bedside no acute distress. Denies nausea, vomiting , diarrhea, abdominal pain, fevers, chills, headache, cough, shortness of breath. Objective - Vital Signs/Intake and Output Vital Signs (last 24 hours): Temp Pulse Resp BP Pulse Ox 98.9 F 78 20 128/88 98 10/11/17 07:30 10/11/17 07:30 10/11/17 07:30 10/11/17 07:30 10/11/17 07:30 Intake and Output: 10/11/17 10/11/17 06:59 18:59 Intake Total 360 1020 Balance 360 1020 - Medications Medications: Current Medications Acetaminophen (Tylenol 325mg Tab) 325 mg PO Q4H PRN PRN Reason: Pain, Mild (1-3) Heparin Sodium (Porcine) (Heparin) 5,000 units SC Q8 [facility] PRN Reason: Protocol Last Admin: 10/11/17 13:50 Dose: 5,000 units Nafcillin Sodium 2 gm/ Sodium (Chloride) 100 mls @ 100 mls/hr IVPB Q6 [facility] PRN Reason: Protocol Stop: 11/06/17 00:01 Last Admin: 10/11/17 12:34 Dose: 100 mls/hr Ibuprofen (Motrin Tab) 600 mg PO Q6H PRN PRN Reason: Pain, moderate (4-7) Last Admin: 10/11/17 13:46 Dose: 600 mg Lactobacillus Acidophilus (Bacid Acidophilus) 1 cap PO BID [facility] Last Admin: 10/11/17 10:28 Dose: 1 cap Morphine Sulfate (Morphine) 2 mg IVP Q4H PRN PRN Reason: Pain, severe (8-10) Last Admin: 10/11/17 13:46 Dose: 2 mg Nicotine (Nicoderm Cq) 1 patch TD DAILY [facility] Last Admin: 10/11/17 10:27 Dose: 1 patch Pantoprazole Sodium (Protonix Ec Tab) 40 mg PO 0600 [facility] Last Admin: 10/11/17 05:22 Dose: 40 mg - Labs Labs: 10/10/17 06:45 10/10/17 06:45 - Constitutional Appears: Non-toxic, No Acute Distress - Head Exam Head Exam: ATRAUMATIC, NORMAL INSPECTION, NORMOCEPHALIC - Eye Exam Eye Exam: EOMI, Normal appearance - ENT Exam ENT Exam: Mucous Membranes Moist - Respiratory Exam Respiratory Exam: Clear to Ausculation Bilateral, NORMAL BREATHING PATTERN. 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 - Right foot MRI revealed osteomyelitis, I&D done. Cultures sent: repeat blood cultures negative, wound cultures positive for MSSA, AFB cultures negative - Afebrile, Continue with Nafcillin. Patient is currently on day 5 of 28 for treatment course. - White blood cell count continues to downtrend Right Atrial vegetation -noted on echo, discussed MILTON with patient however patient has refused echo Hx of recent NSAID use: - Protonix - monitor for symptoms of gastritis/GERD - Avoid further high doses of NSAIDs Hx of Polysubstance abuse: - Urine drug screen positive for opioids and cocaine - Advised cessation Hx of Tobacco use: - Advised cessation - Nicotine patch Hx of previous fractures/back pain: - Continue morphine 2mg Q4h for severe pain; continue to taper down pain medications - Motrin for breakthrough pain Anxiety/Survivor's Guilt/Grievance -Patient would like to be seen by psychiatry regarding emotions that he has been left with after loss of his friends -Psychiatry consulted PPX: Heparin sq, Protonix <Kofi Birmingham - Last Filed: 10/11/17 16:42> Objective - Vital Signs/Intake and Output Vital Signs (last 24 hours): Temp Pulse Resp BP Pulse Ox 98.9 F 78 20 128/88 98 10/11/17 07:30 10/11/17 07:30 10/11/17 07:30 10/11/17 07:30 10/11/17 07:30 Intake and Output: 10/11/17 10/11/17 06:59 18:59 Intake Total 360 1020 Balance 360 1020 - Medications Medications: Current Medications Acetaminophen (Tylenol 325mg Tab) 325 mg PO Q4H PRN PRN Reason: Pain, Mild (1-3) Heparin Sodium (Porcine) (Heparin) 5,000 units SC Q8 [facility] PRN Reason: Protocol Last Admin: 10/11/17 13:50 Dose: 5,000 units Nafcillin Sodium 2 gm/ Sodium (Chloride) 100 mls @ 100 mls/hr IVPB Q6 [facility] PRN Reason: Protocol Stop: 11/06/17 00:01 Last Admin: 10/11/17 12:34 Dose: 100 mls/hr Ibuprofen (Motrin Tab) 600 mg PO Q6H PRN PRN Reason: Pain, moderate (4-7) Last Admin: 10/11/17 13:46 Dose: 600 mg Lactobacillus Acidophilus (Bacid Acidophilus) 1 cap PO BID [facility] Last Admin: 10/11/17 10:28 Dose: 1 cap Morphine Sulfate (Morphine) 2 mg IVP Q4H PRN PRN Reason: Pain, severe (8-10) Last Admin: 10/11/17 13:46 Dose: 2 mg Nicotine (Nicoderm Cq) 1 patch TD DAILY [facility] Last Admin: 10/11/17 10:27 Dose: 1 patch Pantoprazole Sodium (Protonix Ec Tab) 40 mg PO 0600 [facility] Last Admin: 10/11/17 05:22 Dose: 40 mg - Labs Labs: 10/10/17 06:45 10/10/17 06:45 Attending/Attestation - Attestation I have personally seen and examined this patient.: Yes I have fully participated in the care of the patient.: Yes I have reviewed all pertinent clinical information, including history, physical exam and plan: Yes Notes (Text): 10/11/17 15:20 Attending note ; Patient seen and examined with resident . 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 He has leukocytosis and complains of severe pain in the right foot. MRI revealed osteomyelitis. ID evaluation appreciated. Culture is positive for MSSA. Currently on IV naficillin. Bone biopsy is positive for acute osteomyelitis. Status post incision and drainage by podiatry Dr. Murillo. Continue dressing change. Patient needs long-term anti-biotics. PICC line is not an option due to recent active IV drug abuse. Also patient needs to 4 times a day IV anti-biotics. Outpatient clinic is not an option. Active smoking ; smoking cessation is strongly advised . narcotic cessation counselling provided. Anxiety/surviver's guilt; psychiatric evaluation appreciated. Upon discharge patient will follow up with Dr Collins.
--- NOTE | 2017-10-11 19:26 | CP.PCM.PN ---
Subjective - Date & Time of Evaluation Date of Evaluation: 10/11/17 Time of Evaluation: 12:05 - Subjective Subjective: Still with pain in the right foot but less, no fevers, no nausea, no diarrhea. Objective - Vital Signs/Intake and Output Vital Signs (last 24 hours): Temp Pulse Resp BP Pulse Ox 98.9 F 78 20 128/88 98 10/11/17 07:30 10/11/17 07:30 10/11/17 07:30 10/11/17 07:30 10/11/17 07:30 Intake and Output: 10/11/17 10/11/17 06:59 18:59 Intake Total 360 Balance 360 - Medications Medications: Current Medications Acetaminophen (Tylenol 325mg Tab) 325 mg PO Q4H PRN PRN Reason: Pain, Mild (1-3) Heparin Sodium (Porcine) (Heparin) 5,000 units SC Q8 [facility] PRN Reason: Protocol Last Admin: 10/07/17 06:34 Dose: 5,000 units Nafcillin Sodium 2 gm/ Sodium (Chloride) 100 mls @ 100 mls/hr IVPB Q6 [facility] PRN Reason: Protocol Stop: 11/06/17 00:01 Last Admin: 10/11/17 05:22 Dose: 100 mls/hr Ibuprofen (Motrin Tab) 600 mg PO Q6H PRN PRN Reason: Pain, moderate (4-7) Last Admin: 10/11/17 08:34 Dose: 600 mg Lactobacillus Acidophilus (Bacid Acidophilus) 1 cap PO BID [facility] Last Admin: 10/11/17 10:28 Dose: 1 cap Morphine Sulfate (Morphine) 2 mg IVP Q4H PRN PRN Reason: Pain, severe (8-10) Nicotine (Nicoderm Cq) 1 patch TD DAILY [facility] Last Admin: 10/11/17 10:27 Dose: 1 patch Pantoprazole Sodium (Protonix Ec Tab) 40 mg PO 0600 [facility] Last Admin: 10/11/17 05:22 Dose: 40 mg - Labs Labs: 10/10/17 06:45 10/10/17 06:45 - Constitutional Appears: Non-toxic - Head Exam Head Exam: NORMAL INSPECTION - Neck Exam Neck Exam: absent: Meningismus - Respiratory Exam Respiratory Exam: Decreased Breath Sounds. absent: Rales - Cardiovascular Exam Cardiovascular Exam: +S1, +S2 - GI/Abdominal Exam GI & Abdominal Exam: Soft. absent: Tenderness - Extremities Exam Additional comments: right foot with dressings in place Assessment and Plan - Assessment and Plan (Free Text) Plan: Assessment Sepsis due to right foot skin and skin structure infection with associated osteomyelitis, with Staph aureus bacteremia and cannot rule out right sided endocarditis S/P debridement and I and D Plan continue Nafcillin and will need 4-6 weeks of antibiotics with weekly ESR, CRP, CBC, CMP while on antibiotics will monitor clinically
[2017-10-12] MEDS: Nafcillin 2 GM in Sodium Chloride 0.9% 100 ML IVPB SCH ×5 (00:02→23:13)
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
[2017-10-12] MEDS: Pantoprazole 40 mg EC Tab PO SCH (05:42)
[2017-10-12] MEDS: Morphine 2 mg/ml ISec IVP PRN ×4 (06:44→22:02)
[2017-10-12 07:19] LABS: BASO # 0.01 K/mm3 (0.0-2.0); BASO % 0.2 % (0.0-3.0); EOS # 0.1 (0.0-0.7); EOS % 1.3 % (1.5-5.0); GRAN # 3.49 (1.4-6.5); GRAN % 55.4 % (50.0-68.0); HEMOGLOBIN 10.9 g/dL (14.0-18.0); LYMPH # 2.3 (1.2-3.4); LYMPH % 36.4 % (22.0-35.0); MEAN CELL VOLUME 91.9 fl (80.0-105.0); MEAN CORPUSCULAR HEMOGLOBIN 29.5 pg (25.0-35.0); MEAN CORPUSCULAR HGB CONC 32.2 g/dl (31.0-37.0); MEAN PLATELET VOLUME 10.4 fl (7.0-11.0); MONO # 0.4 (0.1-0.6); MONO % 6.7 % (1.0-6.0); RBC 3.69 10^6/uL (3.5-6.1); RED CELL DISTRIBUTION WIDTH 12.6 % (11.5-14.5); WHITE BLOOD COUNT 6.3 10^3/ul (4.5-11.0)
--- NOTE | 2017-10-12 09:10 | CP.PCM.PN ---
<Sidney Browne - Last Filed: 10/12/17 09:07> Subjective - Date & Time of Evaluation Date of Evaluation: 10/12/17 Time of Evaluation: 09:08 - Subjective Subjective: Podiatry Progress Note- Dr. Santiago/Dr. Murillo 37 year old male seen 5 days s/p incision and drainage of right foot abscess, with cellulitis and OM, and debridement of all nonviable tissue. Patient was resting comfortably in bed, appears to be in NAD and AAOx3. Patient denies acute overnight events. Patient denies calf tenderness or pain. Denies of any pain now. Denies of having any F/N/V/C/SOB/CP/headache. Denies of any other pedal complains at this time. Objective - Vital Signs/Intake and Output Vital Signs (last 24 hours): Temp Pulse Resp BP Pulse Ox 97.5 F L 68 20 116/71 99 10/12/17 06:00 10/12/17 06:00 10/12/17 06:00 10/12/17 06:00 10/12/17 06:00 Intake and Output: 10/12/17 10/12/17 06:59 18:59 Intake Total 3300 Balance 3300 - Medications Medications: Current Medications Acetaminophen (Tylenol 325mg Tab) 325 mg PO Q4H PRN PRN Reason: Pain, Mild (1-3) Heparin Sodium (Porcine) (Heparin) 5,000 units SC Q8 QUENTIN PRN Reason: Protocol Last Admin: 10/12/17 05:42 Dose: Not Given Nafcillin Sodium 2 gm/ Sodium (Chloride) 100 mls @ 100 mls/hr IVPB Q6 QUENTIN PRN Reason: Protocol Stop: 11/06/17 00:01 Last Admin: 10/12/17 05:42 Dose: 100 mls/hr Ibuprofen (Motrin Tab) 600 mg PO Q6H PRN PRN Reason: Pain, moderate (4-7) Last Admin: 10/12/17 00:13 Dose: 600 mg Lactobacillus Acidophilus (Bacid Acidophilus) 1 cap PO BID QUENTIN Last Admin: 10/11/17 17:39 Dose: 1 cap Morphine Sulfate (Morphine) 2 mg IVP Q4H PRN PRN Reason: Pain, severe (8-10) Last Admin: 10/12/17 06:44 Dose: 2 mg Nicotine (Nicoderm Cq) 1 patch TD DAILY [facility] Last Admin: 10/11/17 10:27 Dose: 1 patch Pantoprazole Sodium (Protonix Ec Tab) 40 mg PO 0600 [facility] Last Admin: 10/12/17 05:42 Dose: Not Given - Labs Labs: 10/12/17 07:00 10/10/17 06:45 - Constitutional Appears: Well, Non-toxic, No Acute Distress - Extremities Exam Additional comments: Right lower extremity focused. VASC: DP and PT pulses are fully palpable graded 2/4 respectively. CFT < 3 seconds x 10 digits. Temperature runs warm to cool proximal to distal. Mild edema noted to the right foot which appears to be resolving - noticed by skin tension lines DERM: Surgical site is filling in and granulating. Wound base of surgical site is 100% granular, no odor, no active purulence drainage, mild serosangious drainage noted, no calor, erythema to the surrounding surgical site which appears to be resolving MUSCK: Severe pain with palpation to surgical site NEURO: gross and protective sensation intact - Neurological Exam Neurological Exam: Alert, Awake, Oriented x3 - Psychiatric Exam Psychiatric exam: Normal Affect, Normal Mood Assessment and Plan - Assessment and Plan (Free Text) Assessment: 37 y.o male 5 days s/p I&D and debridement of all nonviable tissue of right foot abscess with cellulitis and OM Plan: -Pt seen and evaluated with attending Dr. Santiago -Chart, lab, vitals reviewed- Afebrile, absent leukocytosis -Right foot MRI reveals dorsal midfoot abscess and potential 1st metatarsal and medial cuneiform osteomyelitis -Patient is 5 days s/p I&D of right foot abscess -Discussed with patient about primary closure of wound with sutures in the OR or at bedside. Patient reports he does not want to be NPO and request for the closure to be done at bedside if possible. However, patient refused primary closure of the wound at bedside as well. -Surgical site cleansed with saline solution and dressed with optifoam, dsd, and kerlix. Will heal by secondary intention. -Instructed to keep dressing c/d/i. Do not get wet. Patient may shower as long as he keeps the dressing clean, dry, and intact -OR wound culture-S. Aureus -Bone biopsy- acute OM -ECHO with vegetations Patient refused MILTON -Continue IV Abx per ID Strongly advise against PICC line, pt is active IV drug abuser -Patient may WBAT in surgical shoe to right foot -Pain control per medical team. Pt has hx of polysubstance abuse Currently Morphine 2mg Q4h for severe pain & Motrin for breakthrough pain. -Recommend psych consult -Podiatry will continue to follow pt while inhouse <Bird Santiago - Last Filed: 10/12/17 09:58> Objective - Vital Signs/Intake and Output Vital Signs (last 24 hours): Temp Pulse Resp BP Pulse Ox 97.5 F L 68 20 116/71 99 10/12/17 06:00 10/12/17 06:00 10/12/17 06:00 10/12/17 06:00 10/12/17 06:00 Intake and Output: 10/12/17 10/12/17 06:59 18:59 Intake Total 3300 Balance 3300 - Medications Medications: Current Medications Acetaminophen (Tylenol 325mg Tab) 325 mg PO Q4H PRN PRN Reason: Pain, Mild (1-3) Heparin Sodium (Porcine) (Heparin) 5,000 units SC Q8 QUENTIN PRN Reason: Protocol Last Admin: 10/12/17 05:42 Dose: Not Given Nafcillin Sodium 2 gm/ Sodium (Chloride) 100 mls @ 100 mls/hr IVPB Q6 QUENTIN PRN Reason: Protocol Stop: 11/06/17 00:01 Last Admin: 10/12/17 05:42 Dose: 100 mls/hr Ibuprofen (Motrin Tab) 600 mg PO Q6H PRN PRN Reason: Pain, moderate (4-7) Last Admin: 10/12/17 00:13 Dose: 600 mg Lactobacillus Acidophilus (Bacid Acidophilus) 1 cap PO BID [facility] Last Admin: 10/12/17 09:33 Dose: 1 cap Morphine Sulfate (Morphine) 2 mg IVP Q4H PRN PRN Reason: Pain, severe (8-10) Last Admin: 10/12/17 06:44 Dose: 2 mg Nicotine (Nicoderm Cq) 1 patch TD DAILY [facility] Last Admin: 10/12/17 09:33 Dose: 1 patch Pantoprazole Sodium (Protonix Ec Tab) 40 mg PO 0600 [facility] Last Admin: 10/12/17 05:42 Dose: Not Given - Labs Labs: 10/12/17 07:00 10/10/17 06:45 Attending/Attestation - Attestation I have personally seen and examined this patient.: Yes I have fully participated in the care of the patient.: Yes I have reviewed all pertinent clinical information, including history, physical exam and plan: Yes
[2017-10-12] MEDS: Lactobacillus Acidophilus 500 MU Cap PO SCH ×2 (09:33→17:55)
--- NOTE | 2017-10-12 09:46 | CP.PCM.PN ---
<Héctor Hernandez - Last Filed: 10/12/17 09:43> Subjective - Date & Time of Evaluation Date of Evaluation: 10/12/17 Time of Evaluation: 06:00 - Subjective Subjective: Patient seen and evaluated bedside. No acute issues overnight. patient denies shortness of breath, fever, chills, or any other complaints at this time. Objective - Vital Signs/Intake and Output Vital Signs (last 24 hours): Temp Pulse Resp BP Pulse Ox 97.5 F L 68 20 116/71 99 10/12/17 06:00 10/12/17 06:00 10/12/17 06:00 10/12/17 06:00 10/12/17 06:00 Intake and Output: 10/12/17 10/12/17 06:59 18:59 Intake Total 3300 Balance 3300 - Medications Medications: Current Medications Acetaminophen (Tylenol 325mg Tab) 325 mg PO Q4H PRN PRN Reason: Pain, Mild (1-3) Heparin Sodium (Porcine) (Heparin) 5,000 units SC Q8 QUENTIN PRN Reason: Protocol Last Admin: 10/12/17 05:42 Dose: Not Given Nafcillin Sodium 2 gm/ Sodium (Chloride) 100 mls @ 100 mls/hr IVPB Q6 QUENTIN PRN Reason: Protocol Stop: 11/06/17 00:01 Last Admin: 10/12/17 05:42 Dose: 100 mls/hr Ibuprofen (Motrin Tab) 600 mg PO Q6H PRN PRN Reason: Pain, moderate (4-7) Last Admin: 10/12/17 00:13 Dose: 600 mg Lactobacillus Acidophilus (Bacid Acidophilus) 1 cap PO BID [facility] Last Admin: 10/12/17 09:33 Dose: 1 cap Morphine Sulfate (Morphine) 2 mg IVP Q4H PRN PRN Reason: Pain, severe (8-10) Last Admin: 10/12/17 06:44 Dose: 2 mg Nicotine (Nicoderm Cq) 1 patch TD DAILY [facility] Last Admin: 10/12/17 09:33 Dose: 1 patch Pantoprazole Sodium (Protonix Ec Tab) 40 mg PO 0600 [facility] Last Admin: 10/12/17 05:42 Dose: Not Given - Labs Labs: 10/12/17 07:00 10/10/17 06:45 - Constitutional Appears: Non-toxic, No Acute Distress - Head Exam Head Exam: ATRAUMATIC, NORMAL INSPECTION, NORMOCEPHALIC - Eye Exam Eye Exam: EOMI, Normal appearance - ENT Exam ENT Exam: Mucous Membranes Moist - Respiratory Exam Respiratory Exam: Clear to Ausculation Bilateral, NORMAL BREATHING PATTERN - Cardiovascular Exam Cardiovascular Exam: REGULAR RHYTHM - GI/Abdominal Exam GI & Abdominal Exam: Soft - Extremities Exam Extremities Exam: Full ROM. 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 - Right foot MRI revealed osteomyelitis, I&D done. Cultures sent: repeat blood cultures negative, wound cultures positive for MSSA, AFB cultures negative - Afebrile, Continue with Nafcillin. Patient is currently on day 6 of 28 for treatment course. - White blood cell count continues to downtrend -wound checked by podiatry, clean no abcess or purulent drainage, surgical shoe ordered, patient able to ambulate Right Atrial vegetation -noted on echo, discussed MILTON with patient however patient has refused echo Hx of recent NSAID use: - Protonix - monitor for symptoms of gastritis/GERD - Avoid further high doses of NSAIDs Hx of Polysubstance abuse: - Urine drug screen positive for opioids and cocaine - Advised cessation Hx of Tobacco use: - Advised cessation - Nicotine patch Hx of previous fractures/back pain: - Continue morphine 2mg Q4h for severe pain; continue to taper down pain medications - Motrin for breakthrough pain Anxiety/Survivor's Guilt/Grievance -Patient would like to be seen by psychiatry regarding emotions that he has been left with after loss of his friends -Psychiatry consulted PPX: Heparin sq, Protonix <Kofi Birmingham - Last Filed: 10/12/17 15:55> Objective - Vital Signs/Intake and Output Vital Signs (last 24 hours): Temp Pulse Resp BP Pulse Ox 97.5 F L 68 20 116/71 99 10/12/17 06:00 10/12/17 06:00 10/12/17 06:00 10/12/17 06:00 10/12/17 06:00 Intake and Output: 10/12/17 10/12/17 06:59 18:59 Intake Total 3300 640 Balance 3300 640 - Medications Medications: Current Medications Acetaminophen (Tylenol 325mg Tab) 325 mg PO Q4H PRN PRN Reason: Pain, Mild (1-3) Enoxaparin Sodium (Lovenox) 40 mg SC DAILY QUENTIN PRN Reason: Protocol Last Admin: 10/12/17 14:10 Dose: 40 mg Nafcillin Sodium 2 gm/ Sodium (Chloride) 100 mls @ 100 mls/hr IVPB Q6 QUENTIN PRN Reason: Protocol Stop: 11/06/17 00:01 Last Admin: 10/12/17 11:09 Dose: 100 mls/hr Ibuprofen (Motrin Tab) 600 mg PO Q6H PRN PRN Reason: Pain, moderate (4-7) Last Admin: 10/12/17 00:13 Dose: 600 mg Lactobacillus Acidophilus (Bacid Acidophilus) 1 cap PO BID [facility] Last Admin: 10/12/17 09:33 Dose: 1 cap Morphine Sulfate (Morphine) 2 mg IVP Q4H PRN PRN Reason: Pain, severe (8-10) Last Admin: 10/12/17 11:08 Dose: 2 mg Nicotine (Nicoderm Cq) 1 patch TD DAILY [facility] Last Admin: 10/12/17 09:33 Dose: 1 patch Pantoprazole Sodium (Protonix Ec Tab) 40 mg PO 0600 [facility] Last Admin: 10/12/17 05:42 Dose: Not Given - Labs Labs: 10/12/17 07:00 10/10/17 06:45 Attending/Attestation - Attestation I have personally seen and examined this patient.: Yes I have fully participated in the care of the patient.: Yes I have reviewed all pertinent clinical information, including history, physical exam and plan: Yes Notes (Text): 10/12/17 15:32 Attending note ; Patient seen and examined with resident . 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 He has leukocytosis and complains of severe pain in the right foot. MRI revealed osteomyelitis. ID evaluation appreciated. Culture is positive for MSSA. Currently on IV naficillin. day 6/28 days of IV antibiotics therapy. Bone biopsy is positive for acute osteomyelitis. Status post incision and drainage by podiatry.dressing change today. Wound is clean Patient can ablate with surgical shoe as per podiatry. Active smoking ; smoking cessation is strongly advised . narcotic cessation counselling provided. Anxiety; psychiatric evaluation appreciated. Upon discharge patient will follow up with Dr Collins. 10/12/17 15:41 ` 10/12/17 15:55
[2017-10-12] MEDS: Enoxaparin 40 mg Syringe SC SCH (14:10)
--- NOTE | 2017-10-12 19:34 | PN ---
DATE: 10/12/2017 SUBJECTIVE: Patient is in bed, in no acute distress, nontoxic. PHYSICAL EXAMINATION: VITAL SIGNS: Temperature is 97, blood pressure is 116/70, respiratory rate of 20. HEENT: Unremarkable. NECK: Supple. LUNGS: Have decreased breath sounds. HEART: Normal S1, S2. ABDOMEN: Soft. LABORATORY DATA: Reveal a white count of 6.3, hemoglobin of 10, platelets of 251. Chemistries reveal a BUN of 20, creatinine of 0.9. Urinalysis is noted and serology is noted. Patient has Staph aureus in the blood and Staph aureus from the foot. Acid fast screen stains are negative. ASSESSMENT AND PLAN: A 37-year-old male with sepsis with Staphylococcus aureus which is sensitive Staphylococcus aureus bacteremia with right foot osteomyelitis, Staphylococcus aureus, in a patient who is an active intravenous drug abuser. Will need 4 to 6 weeks of antibiotics with weekly CBC, SMA-18, sedimentation rate, C-reactive protein. Patient is currently on nafcillin. Today is day number 6 of 28 days of nafcillin minimum. Mayur Coleman MD
[2017-10-13] MEDS: Morphine 2 mg/ml ISec IVP PRN ×6 (01:46→23:48)
[2017-10-13] MEDS: Nafcillin 2 GM in Sodium Chloride 0.9% 100 ML IVPB SCH ×4 (06:48→23:47)
[2017-10-13] MEDS: Pantoprazole 40 mg EC Tab PO SCH (06:48)
[2017-10-13] MEDS: Enoxaparin 40 mg Syringe SC SCH (09:39)
[2017-10-13] MEDS: Lactobacillus Acidophilus 500 MU Cap PO SCH ×2 (09:39→18:14)
--- NOTE | 2017-10-13 10:23 | CP.PCM.PN ---
<Héctor Hernandez - Last Filed: 10/13/17 10:20> Subjective - Date & Time of Evaluation Date of Evaluation: 10/13/17 Time of Evaluation: 06:00 - Subjective Subjective: Patient seen and evaluated bedside. No acute issues overnight, no fever chills, nausea, vomiting or any other complaints. Patient says he has been ambulating with surgical shoe. Objective - Vital Signs/Intake and Output Vital Signs (last 24 hours): Temp Pulse Resp BP Pulse Ox 98.0 F 59 L 20 141/82 98 10/13/17 06:00 10/13/17 06:00 10/13/17 06:00 10/13/17 06:00 10/13/17 06:00 Intake and Output: 10/13/17 10/13/17 06:59 18:59 Intake Total Balance - Medications Medications: Current Medications Acetaminophen (Tylenol 325mg Tab) 325 mg PO Q4H PRN PRN Reason: Pain, Mild (1-3) Enoxaparin Sodium (Lovenox) 40 mg SC DAILY [facility] PRN Reason: Protocol Last Admin: 10/13/17 09:39 Dose: 40 mg Nafcillin Sodium 2 gm/ Sodium (Chloride) 100 mls @ 100 mls/hr IVPB Q6 [facility] PRN Reason: Protocol Stop: 11/06/17 00:01 Last Admin: 10/13/17 06:48 Dose: 100 mls/hr Ibuprofen (Motrin Tab) 600 mg PO Q6H PRN PRN Reason: Pain, moderate (4-7) Last Admin: 10/13/17 09:39 Dose: 600 mg Lactobacillus Acidophilus (Bacid Acidophilus) 1 cap PO BID [facility] Last Admin: 10/13/17 09:39 Dose: 1 cap Morphine Sulfate (Morphine) 2 mg IVP Q4H PRN PRN Reason: Pain, severe (8-10) Last Admin: 10/13/17 06:51 Dose: 2 mg Nicotine (Nicoderm Cq) 1 patch TD DAILY [facility] Last Admin: 10/12/17 09:33 Dose: 1 patch Pantoprazole Sodium (Protonix Ec Tab) 40 mg PO 0600 [facility] Last Admin: 10/13/17 06:48 Dose: 40 mg - Labs Labs: 10/12/17 07:00 10/10/17 06:45 - Constitutional Appears: Non-toxic, No Acute Distress - Head Exam Head Exam: ATRAUMATIC, NORMAL INSPECTION, NORMOCEPHALIC - Eye Exam Eye Exam: EOMI, Normal appearance - ENT Exam ENT Exam: Mucous Membranes Moist - Respiratory Exam Respiratory Exam: Clear to Ausculation Bilateral, NORMAL BREATHING PATTERN - Cardiovascular Exam Cardiovascular Exam: REGULAR RHYTHM - GI/Abdominal Exam GI & Abdominal Exam: Soft. 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 Plan: Right foot cellulitis s/p fish sting: - Right foot x ray shows soft tissue swelling, no cortical erosions. - Right foot MRI revealed osteomyelitis, I&D done. Cultures sent: repeat blood cultures negative, wound cultures positive for MSSA, AFB cultures negative - Afebrile, Continue with Nafcillin. Patient is currently on day 7 of 28 for treatment course. - White blood cell count continues to downtrend - surgical shoe, podiatry following -patient ambulating Right Atrial vegetation -noted on echo, discussed MILTON with patient however patient has refused echo Hx of recent NSAID use: - Protonix - monitor for symptoms of gastritis/GERD - Avoid further high doses of NSAIDs Hx of Polysubstance abuse: - Urine drug screen positive for opioids and cocaine - Advised cessation Hx of Tobacco use: - Advised cessation - Nicotine patch Hx of previous fractures/back pain: - Continue morphine 2mg Q4h for severe pain; continue to taper down pain medications - Motrin for breakthrough pain Anxiety/Survivor's Guilt/Grievance -Patient would like to be seen by psychiatry regarding emotions that he has been left with after loss of his friends -Psychiatry consulted PPX: Heparin sq, Protonix <Rangasamy,Ajantha - Last Filed: 10/13/17 18:10> Objective - Vital Signs/Intake and Output Vital Signs (last 24 hours): Temp Pulse Resp BP Pulse Ox 98.0 F 59 L 20 141/82 98 10/13/17 06:00 10/13/17 06:00 10/13/17 06:00 10/13/17 06:00 10/13/17 06:00 Intake and Output: 10/13/17 10/13/17 06:59 18:59 Intake Total Balance - Medications Medications: Current Medications Acetaminophen (Tylenol 325mg Tab) 325 mg PO Q4H PRN PRN Reason: Pain, Mild (1-3) Enoxaparin Sodium (Lovenox) 40 mg SC DAILY [facility] PRN Reason: Protocol Last Admin: 10/13/17 09:39 Dose: 40 mg Nafcillin Sodium 2 gm/ Sodium (Chloride) 100 mls @ 100 mls/hr IVPB Q6 [facility] PRN Reason: Protocol Stop: 11/06/17 00:01 Last Admin: 10/13/17 11:27 Dose: 100 mls/hr Ibuprofen (Motrin Tab) 600 mg PO Q6H PRN PRN Reason: Pain, moderate (4-7) Last Admin: 10/13/17 09:39 Dose: 600 mg Lactobacillus Acidophilus (Bacid Acidophilus) 1 cap PO BID [facility] Last Admin: 10/13/17 09:39 Dose: 1 cap Morphine Sulfate (Morphine) 2 mg IVP Q4H PRN PRN Reason: Pain, severe (8-10) Last Admin: 10/13/17 15:01 Dose: 2 mg Nicotine (Nicoderm Cq) 1 patch TD DAILY [facility] Last Admin: 10/13/17 10:56 Dose: 1 patch Pantoprazole Sodium (Protonix Ec Tab) 40 mg PO 0600 [facility] Last Admin: 10/13/17 06:48 Dose: 40 mg - Labs Labs: 10/12/17 07:00 10/10/17 06:45 Attending/Attestation - Attestation I have personally seen and examined this patient.: Yes I have fully participated in the care of the patient.: Yes I have reviewed all pertinent clinical information, including history, physical exam and plan: Yes Notes (Text): 10/13/17 18:10 Attending note ; Patient seen and examined with resident . 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 He has leukocytosis and complains of severe pain in the right foot. MRI revealed osteomyelitis. ID evaluation appreciated. Culture is positive for MSSA. Currently on IV naficillin. day 7/28 days of IV antibiotics therapy. Bone biopsy is positive for acute osteomyelitis. Status post incision and drainage by podiatry.dressing change today. Wound is clean Patient can ablate with surgical shoe as per podiatry. Active smoking ; smoking cessation is strongly advised . narcotic cessation counselling provided. Anxiety; psychiatric evaluation appreciated. Upon discharge patient will follow up with Dr Collins.
--- NOTE | 2017-10-13 13:44 | CP.PCM.PN ---
<Sidney Browne - Last Filed: 10/13/17 13:41> Subjective - Date & Time of Evaluation Date of Evaluation: 10/13/17 Time of Evaluation: 13:41 - Subjective Subjective: Podiatry Progress Note- Dr. Santiago/Dr. Murillo 37 year old male seen 6 days s/p incision and drainage of right foot abscess, with cellulitis and OM, and debridement of all nonviable tissue. Patient was resting comfortably in bed, appears to be in NAD and AAOx3. Patient denies acute overnight events. Reports that he just got Morphine. Patient denies calf tenderness or pain. Denies of any pain now. Denies of having any F/N/V/C/SOB/CP/ headache. Denies of any other pedal complains at this time. Objective - Vital Signs/Intake and Output Vital Signs (last 24 hours): Temp Pulse Resp BP Pulse Ox 98.0 F 59 L 20 141/82 98 10/13/17 06:00 10/13/17 06:00 10/13/17 06:00 10/13/17 06:00 10/13/17 06:00 Intake and Output: 10/13/17 10/13/17 06:59 18:59 Intake Total Balance - Medications Medications: Current Medications Acetaminophen (Tylenol 325mg Tab) 325 mg PO Q4H PRN PRN Reason: Pain, Mild (1-3) Enoxaparin Sodium (Lovenox) 40 mg SC DAILY [facility] PRN Reason: Protocol Last Admin: 10/13/17 09:39 Dose: 40 mg Nafcillin Sodium 2 gm/ Sodium (Chloride) 100 mls @ 100 mls/hr IVPB Q6 [facility] PRN Reason: Protocol Stop: 11/06/17 00:01 Last Admin: 10/13/17 11:27 Dose: 100 mls/hr Ibuprofen (Motrin Tab) 600 mg PO Q6H PRN PRN Reason: Pain, moderate (4-7) Last Admin: 10/13/17 09:39 Dose: 600 mg Lactobacillus Acidophilus (Bacid Acidophilus) 1 cap PO BID [facility] Last Admin: 10/13/17 09:39 Dose: 1 cap Morphine Sulfate (Morphine) 2 mg IVP Q4H PRN PRN Reason: Pain, severe (8-10) Last Admin: 10/13/17 10:52 Dose: 2 mg Nicotine (Nicoderm Cq) 1 patch TD DAILY [facility] Last Admin: 10/13/17 10:56 Dose: 1 patch Pantoprazole Sodium (Protonix Ec Tab) 40 mg PO 0600 [facility] Last Admin: 10/13/17 06:48 Dose: 40 mg - Labs Labs: 10/12/17 07:00 10/10/17 06:45 - Constitutional Appears: Well, Non-toxic, No Acute Distress - Extremities Exam Additional comments: Right lower extremity focused. VASC: DP and PT pulses are fully palpable graded 2/4 respectively. CFT < 3 seconds x 10 digits. Temperature runs warm to cool proximal to distal. Mild edema noted to the right foot which appears to be resolving - noticed by skin tension lines DERM: Surgical site is filling in and granulating. Wound base of surgical site is 100% granular, no odor, no active purulence drainage, no drainage noted, mild serous drainage with hint of blood noted on the bandage, no calor, erythema to the surrounding surgical site which appears to be resolving MUSK: Severe pain with palpation to surgical site NEURO: gross and protective sensation intact - Neurological Exam Neurological Exam: Alert, Awake, Oriented x3 - Psychiatric Exam Psychiatric exam: Normal Affect, Normal Mood Assessment and Plan - Assessment and Plan (Free Text) Assessment: 37 y.o male 6 days s/p I&D and debridement of all nonviable tissue of right foot abscess with cellulitis and OM Plan: -Pt seen and evaluated -Discussed with attending Dr. Murillo -Chart, lab, vitals reviewed- Afebrile, absent leukocytosis -Right foot MRI reveals dorsal midfoot abscess and potential 1st metatarsal and medial cuneiform osteomyelitis -Patient is 6 days s/p I&D of right foot abscess -Discussed with patient about primary closure of wound with sutures in the OR or at bedside. Patient reports he does not want to be NPO and request for the closure to be done at bedside if possible. However, patient refused primary closure of the wound at bedside as well. -Surgical site cleansed with saline solution and dressed with optifoam, dsd, and kerlix. Will heal by secondary intention. -Instructed to keep dressing c/d/i. Do not get wet. Patient may shower as long as he keeps the dressing clean, dry, and intact -OR wound culture-S. Aureus -Bone biopsy- acute OM -ECHO with vegetations Patient refused MILTON -Continue IV Abx per ID Strongly advise against PICC line, pt is active IV drug abuser -Patient may WBAT in surgical shoe to right foot -Pain control per medical team. Pt has hx of polysubstance abuse Currently Morphine 2mg Q4h for severe pain & Motrin for breakthrough pain. -Recommend psych consult -Podiatry will continue to follow pt while inhouse <Maida Murillo - Last Filed: 10/20/17 14:41> Objective - Vital Signs/Intake and Output Vital Signs (last 24 hours): Temp Pulse Resp BP Pulse Ox 98.1 F 66 20 127/69 97 10/20/17 07:30 10/20/17 07:30 10/20/17 07:30 10/20/17 07:30 10/20/17 07:30 Intake and Output: 10/20/17 10/20/17 06:59 18:59 Intake Total 1560 Balance 1560 - Medications Medications: Current Medications Acetaminophen (Tylenol 325mg Tab) 325 mg PO Q4H PRN PRN Reason: Pain, Mild (1-3) Docusate Sodium (Colace) 100 mg PO BID [facility] Last Admin: 10/20/17 09:36 Dose: Not Given Famotidine (Pepcid) 20 mg PO 1000,2200 [facility] Last Admin: 10/20/17 09:37 Dose: Not Given Gabapentin (Neurontin) 100 mg PO TID [facility] PRN Reason: Protocol Last Admin: 10/20/17 09:35 Dose: Not Given Heparin Sodium (Porcine) (Heparin) 5,000 units SC Q12 [facility] PRN Reason: Protocol Last Admin: 10/20/17 09:37 Dose: Not Given Cefazolin Sodium 2 gm/ Sodium (Chloride) 100 mls @ 200 mls/hr IVPB Q8 [facility] PRN Reason: Protocol Stop: 11/15/17 22:01 Last Admin: 10/20/17 06:37 Dose: 200 mls/hr Ibuprofen (Motrin Tab) 600 mg PO Q6H PRN PRN Reason: Pain, moderate (4-7) Last Admin: 10/18/17 17:06 Dose: 600 mg Lactobacillus Acidophilus (Bacid Acidophilus) 1 cap PO BID [facility] Last Admin: 10/20/17 09:36 Dose: Not Given Nicotine (Nicoderm Cq) 1 patch TD DAILY [facility] Last Admin: 10/20/17 09:35 Dose: 1 patch Oxycodone HCl (Oxycodone Immediate Release Tab) 30 mg PO Q4H PRN PRN Reason: Pain, severe (8-10) Last Admin: 10/20/17 11:08 Dose: 30 mg Pantoprazole Sodium (Protonix Ec Tab) 40 mg PO 0600 [facility] Last Admin: 10/18/17 05:41 Dose: 40 mg - Labs Labs: 10/18/17 11:40 10/18/17 11:40 Attending/Attestation - Attestation I have personally seen and examined this patient.: Yes I have fully participated in the care of the patient.: Yes I have reviewed all pertinent clinical information, including history, physical exam and plan: Yes
--- NOTE | 2017-10-13 17:33 | PN ---
DATE: 10/13/2017 SUBJECTIVE: The patient is in bed and was seen earlier this morning. No fevers and no chills. PHYSICAL EXAMINATION: VITAL SIGNS: Temperature is 98, blood pressure is 140/80, respiratory rate 20. HEENT: Unremarkable. NECK: Supple. LUNGS: Have decreased breath sounds. HEART: Normal S1, S2. ABDOMEN: Soft, nontender. LABORATORY DATA: Reveals a white count of 6.3, hemoglobin of 10. Chemistries reveal a BUN of 20, creatinine of 0.9. Urinalysis is noted. Vancomycin trough level is 10. HIV is negative and microbiology reveals the patient has right foot and blood cultures that are sensitive Staph aureus. ASSESSMENT AND PLAN: This is a 37-year-old male with sepsis with a sensitive Staphylococcus aureus bacteremia and right foot osteomyelitis, questionable right-sided endocarditis in a patient who is an active intravenous drug abuser. Today is day #7 of 28-42 days of antibiotics with weekly chemistries, CBC, SMA-18, sed rate, C-reactive protein. Would not place this patient on with a PICC line since he is an active drug abuser. Mayur Coleman MD
[2017-10-14] MEDS: Morphine 2 mg/ml ISec IVP PRN ×2 (04:13→08:33)
[2017-10-14] MEDS: Pantoprazole 40 mg EC Tab PO SCH (06:22)
[2017-10-14] MEDS: Lactobacillus Acidophilus 500 MU Cap PO SCH ×2 (09:08→17:40)
[2017-10-14] MEDS: Enoxaparin 40 mg Syringe SC SCH (09:08)
[2017-10-14] MEDS: Nafcillin 2 GM in Sodium Chloride 0.9% 100 ML IVPB SCH ×2 (11:33→17:39)
[2017-10-14] MEDS: oxyCODONE 30 mg Immediate Release Tab PO PRN ×2 (12:01→18:27)
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
--- NOTE | 2017-10-14 14:26 | CP.PCM.PN ---
Subjective - Date & Time of Evaluation Date of Evaluation: 10/14/17 Time of Evaluation: 12:30 - Subjective Subjective: No fevers, not in distress, still with right foot pain. Objective - Vital Signs/Intake and Output Vital Signs (last 24 hours): Temp Pulse Resp BP Pulse Ox 98.0 F 78 20 141/66 97 10/14/17 07:21 10/14/17 07:21 10/14/17 07:21 10/14/17 07:21 10/14/17 07:21 Intake and Output: 10/14/17 10/14/17 06:59 18:59 Intake Total 1020 Balance 1020 - Medications Medications: Current Medications Acetaminophen (Tylenol 325mg Tab) 325 mg PO Q4H PRN PRN Reason: Pain, Mild (1-3) Docusate Sodium (Colace) 100 mg PO BID [facility] Gabapentin (Neurontin) 100 mg PO TID [facility] PRN Reason: Protocol Heparin Sodium (Porcine) (Heparin) 5,000 units SC Q12 [facility] PRN Reason: Protocol Nafcillin Sodium 2 gm/ Sodium (Chloride) 100 mls @ 100 mls/hr IVPB Q6 [facility] PRN Reason: Protocol Last Admin: 10/14/17 11:33 Dose: 100 mls/hr Ibuprofen (Motrin Tab) 600 mg PO Q6H PRN PRN Reason: Pain, moderate (4-7) Last Admin: 10/14/17 06:22 Dose: 600 mg Lactobacillus Acidophilus (Bacid Acidophilus) 1 cap PO BID [facility] Last Admin: 10/14/17 09:08 Dose: 1 cap Nicotine (Nicoderm Cq) 1 patch TD DAILY [facility] Last Admin: 10/14/17 09:08 Dose: 1 patch Oxycodone HCl (Oxycodone Immediate Release Tab) 30 mg PO Q6H PRN PRN Reason: Pain, severe (8-10) Pantoprazole Sodium (Protonix Ec Tab) 40 mg PO 0600 [facility] Last Admin: 10/14/17 06:22 Dose: 40 mg - Labs Labs: 10/12/17 07:00 10/10/17 06:45 - Constitutional Appears: Non-toxic, Chronically Ill - Head Exam Head Exam: NORMAL INSPECTION - ENT Exam ENT Exam: Mucous Membranes Moist - Neck Exam Neck Exam: absent: Meningismus - Respiratory Exam Respiratory Exam: Decreased Breath Sounds - Cardiovascular Exam Cardiovascular Exam: +S1, +S2 - GI/Abdominal Exam GI & Abdominal Exam: Soft. absent: Tenderness - Extremities Exam Additional comments: right foot with dressings in place Assessment and Plan - Assessment and Plan (Free Text) Plan: Assessment Sepsis due to right foot skin and skin structure infection with associated osteomyelitis, with Staph aureus bacteremia and cannot rule out right sided endocarditis S/P debridement and I and D Plan continue Nafcillin and will need 4-6 weeks of antibiotics with weekly ESR, CRP, CBC, CMP while on antibiotics (day 8 today) will continue to monitor clinically
--- NOTE | 2017-10-14 17:35 | CP.PCM.PN ---
<Umberto Rivera - Last Filed: 10/14/17 22:42> Subjective - Date & Time of Evaluation Date of Evaluation: 10/14/17 Time of Evaluation: 17:34 - Subjective Subjective: Podiatry Progress Note- Dr. Santiago/Dr. Murillo 37 year old male seen 7 days s/p incision and drainage of right foot abscess, with cellulitis and OM, and debridement of all nonviable tissue. Patient was resting comfortably in bed, in NAD and AAOx3. Patient denies acute overnight events. Patient reports feeling a pressure pain on top his foot. Denies of having any F/N/V/C/SOB/CP/headache. Objective - Vital Signs/Intake and Output Vital Signs (last 24 hours): Temp Pulse Resp BP Pulse Ox 99.5 F 89 20 123/77 97 10/14/17 14:00 10/14/17 14:00 10/14/17 14:00 10/14/17 14:00 10/14/17 14:00 Intake and Output: 10/14/17 10/14/17 06:59 18:59 Intake Total 1020 650 Balance 1020 650 - Medications Medications: Current Medications Acetaminophen (Tylenol 325mg Tab) 325 mg PO Q4H PRN PRN Reason: Pain, Mild (1-3) Docusate Sodium (Colace) 100 mg PO BID [facility] Gabapentin (Neurontin) 100 mg PO TID COUNT [facility]CLUDES [facility] PRN Reason: Protocol Heparin Sodium (Porcine) (Heparin) 5,000 units SC Q12 [facility] PRN Reason: Protocol Nafcillin Sodium 2 gm/ Sodium (Chloride) 100 mls @ 100 mls/hr IVPB Q6 [facility] PRN Reason: Protocol Last Admin: 10/14/17 11:33 Dose: 100 mls/hr Ibuprofen (Motrin Tab) 600 mg PO Q6H PRN PRN Reason: Pain, moderate (4-7) Last Admin: 10/14/17 06:22 Dose: 600 mg Lactobacillus Acidophilus (Bacid Acidophilus) 1 cap PO BID COUNT INCLUDES [facility] Last Admin: 10/14/17 09:08 Dose: 1 cap Nicotine (Nicoderm Cq) 1 patch TD DAILY COUNT [facility]CLUDES [facility] Last Admin: 10/14/17 09:08 Dose: 1 patch Oxycodone HCl (Oxycodone Immediate Release Tab) 30 mg PO Q6H PRN PRN Reason: Pain, severe (8-10) Last Admin: 10/14/17 12:01 Dose: 30 mg Pantoprazole Sodium (Protonix Ec Tab) 40 mg PO 0600 [facility] Last Admin: 10/14/17 06:22 Dose: 40 mg - Labs Labs: 10/12/17 07:00 10/10/17 06:45 - Constitutional Appears: Well, Non-toxic, No Acute Distress - Extremities Exam Additional comments: Right lower extremity focused. VASC: DP and PT pulses are fully palpable graded 2/4 respectively. CFT < 3 seconds x 10 digits. Temperature runs warm to cool proximal to distal. Mild edema noted to the right foot which appears to be resolving - noticed by skin tension lines DERM: Surgical site is filling in and granulating. Wound base of surgical site is 100% granular, no odor, no active purulence drainage, no drainage noted, mild serous drainage with hint of blood noted on the bandage, no calor, erythema to the surrounding surgical site which appears to be resolving MUSK: Severe pain with palpation to surgical site NEURO: gross and protective sensation intact - Neurological Exam Neurological Exam: Alert, Awake - Psychiatric Exam Psychiatric exam: Normal Affect, Normal Mood Assessment and Plan - Assessment and Plan (Free Text) Assessment: 37 y.o male 7 days s/p I&D and debridement of all nonviable tissue of right foot abscess with cellulitis and OM Plan: -Pt seen and evaluated -Discussed with attending Dr. Murillo -Chart, lab, vitals reviewed- Afebrile, absent leukocytosis -Right foot MRI reveals dorsal midfoot abscess and potential 1st metatarsal and medial cuneiform osteomyelitis -Patient is 7 days s/p I&D of right foot abscess -Surgical site cleansed with saline solution and dressed with optifoam, dsd, and kerlix. Will heal by secondary intention as patient previously refused delayed primary closure. -Instructed to keep dressing c/d/i. Do not get wet. Patient may shower as long as he keeps the dressing clean, dry, and intact -OR wound culture-S. Aureus -Bone biopsy- acute OM -Continue IV Naficillin for 4-6 weeks per ID No PICC line as outpatient since pt is active IV drug abuser -Patient may WBAT in surgical shoe to right foot -Pain control per medical team. Pt has hx of polysubstance abuse -Podiatry will continue to follow pt while inhouse <Maida Murillo - Last Filed: 10/20/17 14:49> Objective - Vital Signs/Intake and Output Vital Signs (last 24 hours): Temp Pulse Resp BP Pulse Ox 98.1 F 66 20 127/69 97 10/20/17 07:30 10/20/17 07:30 10/20/17 07:30 10/20/17 07:30 10/20/17 07:30 Intake and Output: 10/20/17 10/20/17 06:59 18:59 Intake Total 1560 Balance 1560 - Medications Medications: Current Medications Acetaminophen (Tylenol 325mg Tab) 325 mg PO Q4H PRN PRN Reason: Pain, Mild (1-3) Docusate Sodium (Colace) 100 mg PO BID COUNT [facility]CLUDES [facility] Last Admin: 10/20/17 09:36 Dose: Not Given Famotidine (Pepcid) 20 mg PO 1000,2200 COUNT INCLUDES [facility] Last Admin: 10/20/17 09:37 Dose: Not Given Gabapentin (Neurontin) 100 mg PO TID COUNT [facility]CLUDES [facility] PRN Reason: Protocol Last Admin: 10/20/17 09:35 Dose: Not Given Heparin Sodium (Porcine) (Heparin) 5,000 units SC Q12 COUNT [facility]CLUDES [facility] PRN Reason: Protocol Last Admin: 10/20/17 09:37 Dose: Not Given Cefazolin Sodium 2 gm/ Sodium (Chloride) 100 mls @ 200 mls/hr IVPB Q8 COUNT INCLUDES [facility] PRN Reason: Protocol Stop: 11/15/17 22:01 Last Admin: 10/20/17 06:37 Dose: 200 mls/hr Ibuprofen (Motrin Tab) 600 mg PO Q6H PRN PRN Reason: Pain, moderate (4-7) Last Admin: 10/18/17 17:06 Dose: 600 mg Lactobacillus Acidophilus (Bacid Acidophilus) 1 cap PO BID COUNT [facility]CLUDES [facility] Last Admin: 10/20/17 09:36 Dose: Not Given Nicotine (Nicoderm Cq) 1 patch TD DAILY COUNT [facility]CLUDES [facility] Last Admin: 10/20/17 09:35 Dose: 1 patch Oxycodone HCl (Oxycodone Immediate Release Tab) 30 mg PO Q4H PRN PRN Reason: Pain, severe (8-10) Last Admin: 10/20/17 11:08 Dose: 30 mg Pantoprazole Sodium (Protonix Ec Tab) 40 mg PO 0600 [facility] Last Admin: 10/18/17 05:41 Dose: 40 mg - Labs Labs: 10/18/17 11:40 10/18/17 11:40 Attending/Attestation - Attestation I have personally seen and examined this patient.: Yes I have fully participated in the care of the patient.: Yes I have reviewed all pertinent clinical information, including history, physical exam and plan: Yes
[2017-10-15] MEDS: oxyCODONE 30 mg Immediate Release Tab PO PRN ×4 (00:03→18:56)
[2017-10-15] MEDS: Pantoprazole 40 mg EC Tab PO SCH (05:46)
[2017-10-15] MEDS: Nafcillin 2 GM in Sodium Chloride 0.9% 100 ML IVPB SCH ×5 (05:46→23:58)
[2017-10-15] MEDS: Lactobacillus Acidophilus 500 MU Cap PO SCH ×2 (09:37→18:54)
[2017-10-15] MEDS ORDERED: Pneumococcal 23-Valent Vaccine IM ONE (11:13)
[2017-10-15] MEDS ORDERED: Influenza Vaccine 60 mcg/0.5 mL SYR (4YR UP) IM ONE (11:13)
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
--- NOTE | 2017-10-15 17:08 | PN ---
DATE: SUBJECTIVE: A 37-year-old male seen at bedside for continued evaluation and management of a right foot abscess, which was incised and drained 1 week ago. The patient is resting comfortably and offers no new complaints. He has been afebrile. The patient's vital signs reveal temperature of 98.4, pulse rate of 65, blood pressure of 121/66, respiratory rate of 20. Laboratory findings reveal a white count of 6.3, hemoglobin of 10.9, hematocrit of 33.9, platelet count of 251. Most recent microbiology report reveals Staphylococcus aureus growth from his right foot. PLAN: The patient was seen and evaluated. His foot was cleansed with normal sterile saline and application of Optifoam dry sterile dressing and Kerlix was applied. The patient had refused primary closure via sutures and is intend on having the wound heal by secondary intention. The patient was told to remain off his feet as much as possible and to keep the dressing clean, dry, and intact, which includes not showering, sponge bathe only. We will continue with IV nafcillin as per Infectious Disease. The patient will use the WBAT. The patient may bear weight in surgical shoe at all times when he is ambulating. The patient will be seen and followed daily while in-house. Bird Santiago DPM
[2017-10-16] MEDS: oxyCODONE 30 mg Immediate Release Tab PO PRN ×4 (02:52→21:25)
[2017-10-16] MEDS: Pantoprazole 40 mg EC Tab PO SCH (05:54)
[2017-10-16] MEDS: Nafcillin 2 GM in Sodium Chloride 0.9% 100 ML IVPB SCH ×3 (05:55→17:26)
[2017-10-16] MEDS: Lactobacillus Acidophilus 500 MU Cap PO SCH ×2 (09:57→17:27)
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
--- NOTE | 2017-10-16 17:11 | CP.PCM.PN ---
Subjective - Date & Time of Evaluation Date of Evaluation: 10/15/17 Time of Evaluation: 11:50 - Subjective Subjective: No fevers, not in distress. Objective - Vital Signs/Intake and Output Vital Signs (last 24 hours): Temp Pulse Resp BP Pulse Ox 98.4 F 65 20 121/66 98 10/15/17 07:25 10/15/17 07:25 10/15/17 07:25 10/15/17 07:25 10/15/17 07:25 Intake and Output: 10/15/17 10/15/17 06:59 18:59 Intake Total 1140 Balance 1140 - Medications Medications: Current Medications Acetaminophen (Tylenol 325mg Tab) 325 mg PO Q4H PRN PRN Reason: Pain, Mild (1-3) Docusate Sodium (Colace) 100 mg PO BID [facility] Last Admin: 10/15/17 09:38 Dose: 100 mg Gabapentin (Neurontin) 100 mg PO TID [facility] PRN Reason: Protocol Last Admin: 10/15/17 09:38 Dose: 100 mg Heparin Sodium (Porcine) (Heparin) 5,000 units SC Q12 [facility] PRN Reason: Protocol Last Admin: 10/15/17 09:36 Dose: 5,000 units Nafcillin Sodium 2 gm/ Sodium (Chloride) 100 mls @ 100 mls/hr IVPB Q6 [facility] PRN Reason: Protocol Last Admin: 10/15/17 05:46 Dose: 100 mls/hr Ibuprofen (Motrin Tab) 600 mg PO Q6H PRN PRN Reason: Pain, moderate (4-7) Last Admin: 10/15/17 09:42 Dose: 600 mg Lactobacillus Acidophilus (Bacid Acidophilus) 1 cap PO BID [facility] Last Admin: 10/15/17 09:37 Dose: 1 cap Nicotine (Nicoderm Cq) 1 patch TD DAILY [facility] Last Admin: 10/15/17 09:36 Dose: 1 patch Oxycodone HCl (Oxycodone Immediate Release Tab) 30 mg PO Q6H PRN PRN Reason: Pain, severe (8-10) Last Admin: 10/15/17 05:55 Dose: 30 mg Pantoprazole Sodium (Protonix Ec Tab) 40 mg PO 0600 [facility] Last Admin: 10/15/17 05:46 Dose: 40 mg - Labs Labs: 10/12/17 07:00 10/10/17 06:45 - Constitutional Appears: Non-toxic, Chronically Ill - Head Exam Head Exam: NORMAL INSPECTION - Respiratory Exam Respiratory Exam: Decreased Breath Sounds - Cardiovascular Exam Cardiovascular Exam: +S1, +S2 - GI/Abdominal Exam GI & Abdominal Exam: Soft. absent: Tenderness Assessment and Plan - Assessment and Plan (Free Text) Plan: Assessment Sepsis due to right foot skin and skin structure infection with associated osteomyelitis, with Staph aureus bacteremia and cannot rule out right sided endocarditis S/P debridement and I and D Plan continue Nafcillin and will need 4-6 weeks of antibiotics with weekly ESR, CRP, CBC, CMP while on antibiotics (day 9 today) will continue to monitor clinically
--- NOTE | 2017-10-16 18:22 | CP.PCM.PN ---
<Umberto Rivera - Last Filed: 10/16/17 18:19> Subjective - Date & Time of Evaluation Date of Evaluation: 10/16/17 Time of Evaluation: 18:19 - Subjective Subjective: Podiatry Progress Note- Dr. Santiago/Dr. Murillo 37 year old male seen 8 days s/p incision and drainage of right foot abscess, with cellulitis and OM, and debridement of all nonviable tissue. Cellulitis has resolved. Patient is seen out of bed, resting in a chair, in NAD and AAOx3. Patient reports that he is doing well today. He denies nausea, fever, shortness of breath, chills, chest pain, or diarrhea. No new pedal complains today Objective - Vital Signs/Intake and Output Vital Signs (last 24 hours): Temp Pulse Resp BP Pulse Ox 97.8 F 78 20 119/78 97 10/16/17 07:36 10/16/17 07:36 10/16/17 07:36 10/16/17 07:36 10/16/17 07:36 Intake and Output: 10/16/17 10/16/17 06:59 18:59 Intake Total 1640 640 Output Total 560 Balance 1640 80 - Medications Medications: Current Medications Acetaminophen (Tylenol 325mg Tab) 325 mg PO Q4H PRN PRN Reason: Pain, Mild (1-3) Docusate Sodium (Colace) 100 mg PO BID [facility] Last Admin: 10/16/17 17:28 Dose: Not Given Gabapentin (Neurontin) 100 mg PO TID [facility] PRN Reason: Protocol Last Admin: 10/16/17 17:27 Dose: 100 mg Heparin Sodium (Porcine) (Heparin) 5,000 units SC Q12 [facility] PRN Reason: Protocol Last Admin: 10/16/17 09:58 Dose: 5,000 units Nafcillin Sodium 2 gm/ Sodium (Chloride) 100 mls @ 100 mls/hr IVPB Q6 [facility] PRN Reason: Protocol Last Admin: 10/16/17 17:26 Dose: 100 mls/hr Ibuprofen (Motrin Tab) 600 mg PO Q6H PRN PRN Reason: Pain, moderate (4-7) Last Admin: 10/15/17 09:42 Dose: 600 mg Lactobacillus Acidophilus (Bacid Acidophilus) 1 cap PO BID [facility] Last Admin: 10/16/17 17:27 Dose: 1 cap Nicotine (Nicoderm Cq) 1 patch TD DAILY [facility] Last Admin: 10/16/17 09:58 Dose: 1 patch Oxycodone HCl (Oxycodone Immediate Release Tab) 30 mg PO Q6H PRN PRN Reason: Pain, severe (8-10) Last Admin: 10/16/17 14:58 Dose: 30 mg Pantoprazole Sodium (Protonix Ec Tab) 40 mg PO 0600 [facility] Last Admin: 10/16/17 05:54 Dose: 40 mg - Labs Labs: 10/12/17 07:00 10/10/17 06:45 - Constitutional Appears: Well, Non-toxic, No Acute Distress - Extremities Exam Extremities Exam: absent: Calf Tenderness Additional comments: Right lower extremity focused. VASC: DP and PT pulses are fully palpable graded 2/4 respectively. CFT < 3 seconds x 10 digits. Temperature runs warm to cool proximal to distal. Mild edema noted to the right foot which appears to be resolving - noticed by skin tension lines DERM: Surgical site is filling in and granulating, with decrease depth of wound. Wound base of surgical site is 100% granular, no odor, no active purulence drainage, no drainage noted, mild serous drainage with hint of blood noted on the bandage, no calor, erythema to the surrounding surgical site which appears to be resolving MUSK: Severe pain with palpation to surgical site NEURO: gross and protective sensation intact - Neurological Exam Neurological Exam: Alert, Awake, Oriented x3 - Psychiatric Exam Psychiatric exam: Normal Affect, Normal Mood Assessment and Plan - Assessment and Plan (Free Text) Assessment: 37 y.o male 7 days s/p I&D and debridement of all nonviable tissue of right foot abscess with cellulitis and OM; cellulitis has resovled Plan: -Pt seen and evaluated -Discussed with attending Dr. Murillo -Chart, lab, vitals reviewed- Afebrile, absent leukocytosis -Right foot MRI reveals dorsal midfoot abscess and potential 1st metatarsal and medial cuneiform osteomyelitis -Patient is 8 days s/p I&D of right foot abscess -Surgical site cleansed with saline solution and dressed with optifoam, dsd, and kerlix. Will heal by secondary intention as patient previously refused delayed primary closure. -Instructed to keep dressing c/d/i. Do not get wet. Patient may shower as long as he keeps the dressing clean, dry, and intact -OR wound culture-S. Aureus -Bone biopsy- acute OM -Continue IV Naficillin for 4-6 weeks per ID No PICC line as outpatient since pt is active IV drug abuser -Patient may WBAT in surgical shoe to right foot -Pain control per medical team. Pt has hx of polysubstance abuse -Podiatry will continue to follow pt while inhouse <Maida Murillo - Last Filed: 10/20/17 15:53> Objective - Vital Signs/Intake and Output Vital Signs (last 24 hours): Temp Pulse Resp BP Pulse Ox 98.1 F 66 20 127/69 97 10/20/17 07:30 10/20/17 07:30 10/20/17 07:30 10/20/17 07:30 10/20/17 07:30 Intake and Output: 10/20/17 10/20/17 06:59 18:59 Intake Total 1560 Balance 1560 - Medications Medications: Current Medications Acetaminophen (Tylenol 325mg Tab) 325 mg PO Q4H PRN PRN Reason: Pain, Mild (1-3) Docusate Sodium (Colace) 100 mg PO BID [facility] Last Admin: 10/20/17 09:36 Dose: Not Given Famotidine (Pepcid) 20 mg PO 1000,2200 [facility] Last Admin: 10/20/17 09:37 Dose: Not Given Gabapentin (Neurontin) 100 mg PO TID [facility] PRN Reason: Protocol Last Admin: 10/20/17 09:35 Dose: Not Given Heparin Sodium (Porcine) (Heparin) 5,000 units SC Q12 [facility] PRN Reason: Protocol Last Admin: 10/20/17 09:37 Dose: Not Given Cefazolin Sodium 2 gm/ Sodium (Chloride) 100 mls @ 200 mls/hr IVPB Q8 [facility] PRN Reason: Protocol Stop: 11/15/17 22:01 Last Admin: 10/20/17 15:22 Dose: 200 mls/hr Ibuprofen (Motrin Tab) 600 mg PO Q6H PRN PRN Reason: Pain, moderate (4-7) Last Admin: 10/18/17 17:06 Dose: 600 mg Lactobacillus Acidophilus (Bacid Acidophilus) 1 cap PO BID [facility] Last Admin: 10/20/17 09:36 Dose: Not Given Nicotine (Nicoderm Cq) 1 patch TD DAILY [facility] Last Admin: 10/20/17 09:35 Dose: 1 patch Oxycodone HCl (Oxycodone Immediate Release Tab) 30 mg PO Q4H PRN PRN Reason: Pain, severe (8-10) Last Admin: 10/20/17 15:23 Dose: 30 mg Pantoprazole Sodium (Protonix Ec Tab) 40 mg PO 0600 [facility] Last Admin: 10/18/17 05:41 Dose: 40 mg - Labs Labs: 10/18/17 11:40 10/18/17 11:40
[2017-10-17] MEDS: Nafcillin 2 GM in Sodium Chloride 0.9% 100 ML IVPB SCH ×5 (00:46→23:21)
[2017-10-17] MEDS: Pantoprazole 40 mg EC Tab PO SCH (05:32)
[2017-10-17] MEDS: oxyCODONE 30 mg Immediate Release Tab PO PRN ×3 (05:32→17:54)
[2017-10-17] MEDS: Lactobacillus Acidophilus 500 MU Cap PO SCH ×2 (09:28→17:35)
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
--- NOTE | 2017-10-17 16:50 | CP.PCM.PN ---
<Umberto Rivera - Last Filed: 10/17/17 16:47> Subjective - Date & Time of Evaluation Date of Evaluation: 10/17/17 Time of Evaluation: 16:47 - Subjective Subjective: Podiatry Progress Note- Dr. Santiago/Dr. Murillo 37 year old male seen 9 days s/p incision and drainage of right foot abscess with OM. Cellulitis has resolved. Patient is laying comfortably in bed, in NAD. Patient is AA0x3. Patient reports that last night was one of the first night he slept the entire night without pain. He reports he continues to walk around the hospital in surgical shoe without any problems. Patient reports that his pain has diminished. He reports the pain feeling like a bone pain. He denies nausea, fever, shortness of breath, chills, chest pain, or diarrhea. No new pedal complains today Objective - Vital Signs/Intake and Output Vital Signs (last 24 hours): Temp Pulse Resp BP Pulse Ox 98 F 87 20 124/69 100 10/17/17 14:00 10/17/17 14:00 10/17/17 14:00 10/17/17 14:00 10/17/17 14:00 Intake and Output: 10/17/17 10/17/17 06:59 18:59 Intake Total 1140 Balance 1140 - Medications Medications: Current Medications Acetaminophen (Tylenol 325mg Tab) 325 mg PO Q4H PRN PRN Reason: Pain, Mild (1-3) Docusate Sodium (Colace) 100 mg PO BID [facility] Last Admin: 10/17/17 09:28 Dose: Not Given Gabapentin (Neurontin) 100 mg PO TID [facility] PRN Reason: Protocol Last Admin: 10/17/17 14:59 Dose: 100 mg Heparin Sodium (Porcine) (Heparin) 5,000 units SC Q12 [facility] PRN Reason: Protocol Last Admin: 10/17/17 09:29 Dose: 5,000 units Nafcillin Sodium 2 gm/ Sodium (Chloride) 100 mls @ 100 mls/hr IVPB Q6 [facility] PRN Reason: Protocol Last Admin: 10/17/17 11:44 Dose: 100 mls/hr Ibuprofen (Motrin Tab) 600 mg PO Q6H PRN PRN Reason: Pain, moderate (4-7) Last Admin: 10/15/17 09:42 Dose: 600 mg Lactobacillus Acidophilus (Bacid Acidophilus) 1 cap PO BID [facility] Last Admin: 10/17/17 09:28 Dose: 1 cap Nicotine (Nicoderm Cq) 1 patch TD DAILY [facility] Last Admin: 10/17/17 09:29 Dose: 1 patch Oxycodone HCl (Oxycodone Immediate Release Tab) 30 mg PO Q6H PRN PRN Reason: Pain, severe (8-10) Last Admin: 10/17/17 11:43 Dose: 30 mg Pantoprazole Sodium (Protonix Ec Tab) 40 mg PO 0600 [facility] Last Admin: 10/17/17 05:32 Dose: 40 mg - Labs Labs: 10/12/17 07:00 10/10/17 06:45 - Constitutional Appears: Well, Non-toxic, No Acute Distress - Extremities Exam Extremities Exam: absent: Calf Tenderness Additional comments: Right lower extremity focused. VASC: DP and PT pulses are fully palpable graded 2/4 respectively. CFT < 3 seconds x 10 digits. Temperature runs warm to cool proximal to distal. Mild edema noted to the right foot which appears to be resolving - noticed by skin tension lines DERM: Surgical site is filling in and granulating, with decrease depth of wound. Wound measurement currently is 3.5 x .5 x .1 cm. Wound base of surgical site is 100% granular, no odor, no active purulence drainage, no drainage noted , mild serous drainage with hint of blood noted on the bandage, no calor, erythema to the surrounding surgical site which appears to be resolving MUSK: Severe pain with palpation to surgical site NEURO: gross and protective sensation intact - Neurological Exam Neurological Exam: Alert, Awake, Oriented x3 - Psychiatric Exam Psychiatric exam: Normal Affect, Normal Mood Assessment and Plan - Assessment and Plan (Free Text) Assessment: 37 y.o male 9days s/p I&D and debridement of all nonviable tissue of right foot abscess with cellulitis and OM; cellulitis has resovled Plan: -Pt seen and evaluated -Discussed with attending Dr. Murillo -Chart, lab, vitals reviewed- Afebrile, absent leukocytosis -Right foot MRI reveals dorsal midfoot abscess and potential 1st metatarsal and medial cuneiform osteomyelitis -Patient is 9 days s/p I&D of right foot abscess -Surgical site cleansed with saline solution and dressed with optifoam, dsd, and kerlix. Will heal by secondary intention as patient previously refused delayed primary closure. Healing well -Instructed to keep dressing c/d/i. Do not get wet. Patient may shower as long as he keeps the dressing clean, dry, and intact -OR wound culture-S. Aureus -Bone biopsy- acute OM -Continue IV Naficillin for 4-6 weeks per ID No PICC line as outpatient since pt is active IV drug abuser -Patient may WBAT in surgical shoe to right foot -Pain control per medical team. Pt has hx of polysubstance abuse -Podiatry will continue to follow pt while inhouse <Maida Murillo - Last Filed: 10/20/17 15:58> Objective - Vital Signs/Intake and Output Vital Signs (last 24 hours): Temp Pulse Resp BP Pulse Ox 98.1 F 66 20 127/69 97 10/20/17 07:30 10/20/17 07:30 10/20/17 07:30 10/20/17 07:30 10/20/17 07:30 Intake and Output: 10/20/17 10/20/17 06:59 18:59 Intake Total 1560 Balance 1560 - Medications Medications: Current Medications Acetaminophen (Tylenol 325mg Tab) 325 mg PO Q4H PRN PRN Reason: Pain, Mild (1-3) Docusate Sodium (Colace) 100 mg PO BID [facility] Last Admin: 10/20/17 09:36 Dose: Not Given Famotidine (Pepcid) 20 mg PO 1000,2200 [facility] Last Admin: 10/20/17 09:37 Dose: Not Given Gabapentin (Neurontin) 100 mg PO TID [facility] PRN Reason: Protocol Last Admin: 10/20/17 09:35 Dose: Not Given Heparin Sodium (Porcine) (Heparin) 5,000 units SC Q12 [facility] PRN Reason: Protocol Last Admin: 10/20/17 09:37 Dose: Not Given Cefazolin Sodium 2 gm/ Sodium (Chloride) 100 mls @ 200 mls/hr IVPB Q8 [facility] PRN Reason: Protocol Stop: 11/15/17 22:01 Last Admin: 10/20/17 15:22 Dose: 200 mls/hr Ibuprofen (Motrin Tab) 600 mg PO Q6H PRN PRN Reason: Pain, moderate (4-7) Last Admin: 10/18/17 17:06 Dose: 600 mg Lactobacillus Acidophilus (Bacid Acidophilus) 1 cap PO BID [facility] Last Admin: 10/20/17 09:36 Dose: Not Given Nicotine (Nicoderm Cq) 1 patch TD DAILY [facility] Last Admin: 10/20/17 09:35 Dose: 1 patch Oxycodone HCl (Oxycodone Immediate Release Tab) 30 mg PO Q4H PRN PRN Reason: Pain, severe (8-10) Last Admin: 10/20/17 15:23 Dose: 30 mg Pantoprazole Sodium (Protonix Ec Tab) 40 mg PO 0600 [facility] Last Admin: 10/18/17 05:41 Dose: 40 mg - Labs Labs: 10/18/17 11:40 10/18/17 11:40 Attending/Attestation - Attestation I have personally seen and examined this patient.: Yes I have fully participated in the care of the patient.: Yes I have reviewed all pertinent clinical information, including history, physical exam and plan: Yes
[2017-10-18] MEDS: oxyCODONE 30 mg Immediate Release Tab PO PRN ×4 (02:08→20:13)
[2017-10-18] MEDS: Nafcillin 2 GM in Sodium Chloride 0.9% 100 ML IVPB SCH ×3 (05:41→17:29)
[2017-10-18] MEDS: Pantoprazole 40 mg EC Tab PO SCH (05:41)
[2017-10-18] MEDS: Lactobacillus Acidophilus 500 MU Cap PO SCH ×2 (10:51→17:06)
[2017-10-18 12:01] LABS: BASO # 0.02 K/mm3 (0.0-2.0); BASO % 0.4 % (0.0-3.0); EOS # 0.2 (0.0-0.7); GRAN # 3.47 (1.4-6.5); GRAN % 70.3 % (50.0-68.0); HEMOGLOBIN 12.3 g/dL (14.0-18.0); LYMPH # 0.9 (1.2-3.4); MEAN CELL VOLUME 91.5 fl (80.0-105.0); MEAN CORPUSCULAR HEMOGLOBIN 29.9 pg (25.0-35.0); MEAN CORPUSCULAR HGB CONC 32.6 g/dl (31.0-37.0); MEAN PLATELET VOLUME 10.4 fl (7.0-11.0); MONO # 0.4 (0.1-0.6); MONO % 8.3 % (1.0-6.0); RBC 4.12 10^6/uL (3.5-6.1); RED CELL DISTRIBUTION WIDTH 13.2 % (11.5-14.5); WHITE BLOOD COUNT 4.9 10^3/ul (4.5-11.0)
[2017-10-18 12:05] LABS: ALB/GLOB RATIO 1.3 (1.1-1.8); ALBUMIN 4.4 g/dL (3.0-4.8); ALT/SGPT 342 U/L (7-56); AST/SGOT 277 U/L (17-59); BLOOD UREA NITROGEN 20 mg/dL (7-21); CALCIUM 9.9 mg/dL (8.4-10.5); GFR AFRICAN-AMERICAN > 60; GFR NON-AFRICAN AMERICAN > 60
[2017-10-18 13:10] LABS: BILIRUBIN,DIRECT 0.4 mg/dL (0.0-0.4)
--- NOTE | 2017-10-18 14:29 | CP.PCM.PN ---
<Umberto Rivera - Last Filed: 10/18/17 15:57> Subjective - Date & Time of Evaluation Date of Evaluation: 10/18/17 Time of Evaluation: 15:58 - Subjective Subjective: Podiatry Progress Note- Dr. Santiago/Dr. Murillo 37 year old male seen 11 days s/p incision and drainage of right foot abscess with OM (DOS: 10/07/17) . Patient is seen resting comfortably in bed, in NAD, and AA0X3. Friend was visiting patient at bedside during encounter. Patient reports that he is feeling well. He reports the same pain, describing feeling the pain in his bones. Patient denies acute overnight events. Denies nausea, fever, shortness of breath, chest pain, or chills. Patient has no new pedal complaints at this time. Objective - Vital Signs/Intake and Output Vital Signs (last 24 hours): Temp Pulse Resp BP Pulse Ox 98.3 F 87 20 105/65 98 10/18/17 07:56 10/18/17 07:56 10/18/17 07:56 10/18/17 07:56 10/18/17 07:56 Intake and Output: 10/18/17 10/18/17 06:59 18:59 Intake Total 780 Balance 780 - Medications Medications: Current Medications Acetaminophen (Tylenol 325mg Tab) 325 mg PO Q4H PRN PRN Reason: Pain, Mild (1-3) Docusate Sodium (Colace) 100 mg PO BID REPLACED BY [facility] Last Admin: 10/18/17 10:52 Dose: Not Given Famotidine (Pepcid) 20 mg PO 1000,2200 REPLACED BY [facility] Gabapentin (Neurontin) 100 mg PO TID [facility] PRN Reason: Protocol Last Admin: 10/18/17 14:08 Dose: 100 mg Heparin Sodium (Porcine) (Heparin) 5,000 units SC Q12 [facility] PRN Reason: Protocol Last Admin: 10/18/17 10:50 Dose: 5,000 units Nafcillin Sodium 2 gm/ Sodium (Chloride) 100 mls @ 100 mls/hr IVPB Q6 [facility] PRN Reason: Protocol Last Admin: 10/18/17 11:48 Dose: 100 mls/hr Ibuprofen (Motrin Tab) 600 mg PO Q6H PRN PRN Reason: Pain, moderate (4-7) Last Admin: 10/18/17 10:51 Dose: 600 mg Lactobacillus Acidophilus (Bacid Acidophilus) 1 cap PO BID REPLACED BY [facility] Last Admin: 10/18/17 10:51 Dose: 1 cap Nicotine (Nicoderm Cq) 1 patch TD DAILY REPLACED BY [facility] Last Admin: 10/18/17 10:50 Dose: 1 patch Oxycodone HCl (Oxycodone Immediate Release Tab) 30 mg PO Q6H PRN PRN Reason: Pain, severe (8-10) Last Admin: 10/18/17 14:08 Dose: 30 mg Pantoprazole Sodium (Protonix Ec Tab) 40 mg PO 0600 REPLACED BY [facility] Last Admin: 10/18/17 05:41 Dose: 40 mg - Labs Labs: 10/18/17 11:40 10/18/17 11:40 - Constitutional Appears: Well, Non-toxic, No Acute Distress - Extremities Exam Extremities Exam: absent: Calf Tenderness Additional comments: Right lower extremity focused. VASC: DP and PT pulses are fully palpable graded 2/4 respectively. CFT < 3 seconds x 10 digits. Temperature runs warm to cool proximal to distal. Mild edema noted to the right foot which appears to be resolving - noticed by skin tension lines DERM: Surgical site is filling in and granulating, with decrease depth of wound. Wound measurement currently is 3.5 x .3 x .1 cm. Wound base of surgical site is 100% granular, no odor, no active purulence drainage, no drainage noted , mild serous drainage with hint of blood noted on the bandage, no calor, erythema to the surrounding surgical site which appears to be resolving MUSK: Severe pain with palpation to surgical site NEURO: gross and protective sensation intact - Neurological Exam Neurological Exam: Alert, Awake, Oriented x3 - Psychiatric Exam Psychiatric exam: Normal Affect, Normal Mood Assessment and Plan - Assessment and Plan (Free Text) Assessment: 37 y.o male 11 days s/p I&D and debridement of all nonviable tissue of right foot abscess with cellulitis and OM (DOS: 10/07/17) ; cellulitis has resovled Plan: -Pt seen and evaluated -Discussed with attending Dr. Santiago -Chart, lab, vitals reviewed- Afebrile, absent leukocytosis -Right foot MRI reveals dorsal midfoot abscess and potential 1st metatarsal and medial cuneiform osteomyelitis -Patient is 11 days s/p I&D of right foot abscess -Surgical site cleansed with saline solution and dressed with optifoam, dsd, and kerlix. Will heal by secondary intention as patient previously refused delayed primary closure. Healing well -Instructed to keep dressing c/d/i. Do not get wet. Patient may shower as long as he keeps the dressing clean, dry, and intact -OR wound culture-S. Aureus -Bone biopsy- acute OM -Continue IV Naficillin for 4-6 weeks per ID No PICC line as outpatient since pt is active IV drug abuser -Patient may WBAT in surgical shoe to right foot -Pain control per medical team. Pt has hx of polysubstance abuse -Podiatry will continue to follow pt while inhouse <Bird Santiago - Last Filed: 10/18/17 17:22> Objective - Vital Signs/Intake and Output Vital Signs (last 24 hours): Temp Pulse Resp BP Pulse Ox 98 F 79 20 124/70 99 10/18/17 14:00 10/18/17 14:00 10/18/17 14:00 10/18/17 14:00 10/18/17 14:00 Intake and Output: 10/18/17 10/18/17 06:59 18:59 Intake Total 780 900 Balance 780 900 - Medications Medications: Current Medications Acetaminophen (Tylenol 325mg Tab) 325 mg PO Q4H PRN PRN Reason: Pain, Mild (1-3) Docusate Sodium (Colace) 100 mg PO BID REPLACED BY [facility] Last Admin: 10/18/17 10:52 Dose: Not Given Famotidine (Pepcid) 20 mg PO 1000,2200 REPLACED BY [facility] Gabapentin (Neurontin) 100 mg PO TID [facility] PRN Reason: Protocol Last Admin: 10/18/17 17:05 Dose: 100 mg Heparin Sodium (Porcine) (Heparin) 5,000 units SC Q12 [facility] PRN Reason: Protocol Last Admin: 10/18/17 10:50 Dose: 5,000 units Nafcillin Sodium 2 gm/ Sodium (Chloride) 100 mls @ 100 mls/hr IVPB Q6 [facility] PRN Reason: Protocol Last Admin: 10/18/17 11:48 Dose: 100 mls/hr Ibuprofen (Motrin Tab) 600 mg PO Q6H PRN PRN Reason: Pain, moderate (4-7) Last Admin: 10/18/17 17:06 Dose: 600 mg Lactobacillus Acidophilus (Bacid Acidophilus) 1 cap PO BID REPLACED BY [facility] Last Admin: 10/18/17 17:06 Dose: 1 cap Nicotine (Nicoderm Cq) 1 patch TD DAILY REPLACED BY [facility] Last Admin: 10/18/17 10:50 Dose: 1 patch Oxycodone HCl (Oxycodone Immediate Release Tab) 30 mg PO Q6H PRN PRN Reason: Pain, severe (8-10) Last Admin: 10/18/17 14:08 Dose: 30 mg Pantoprazole Sodium (Protonix Ec Tab) 40 mg PO 0600 REPLACED BY [facility] Last Admin: 10/18/17 05:41 Dose: 40 mg - Labs Labs: 10/18/17 11:40 10/18/17 11:40 Attending/Attestation - Attestation I have personally seen and examined this patient.: Yes I have fully participated in the care of the patient.: Yes I have reviewed all pertinent clinical information, including history, physical exam and plan: Yes
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
--- NOTE | 2017-10-18 20:00 | CP.PCM.PN ---
Subjective - Date & Time of Evaluation Date of Evaluation: 10/18/17 Time of Evaluation: 12:35 - Subjective Subjective: Stubbed his foot on the bed and it is painful, no fevers overnight, no diarrhea. Objective - Vital Signs/Intake and Output Vital Signs (last 24 hours): Temp Pulse Resp BP Pulse Ox 98.3 F 87 20 105/65 98 10/18/17 07:56 10/18/17 07:56 10/18/17 07:56 10/18/17 07:56 10/18/17 07:56 Intake and Output: 10/18/17 10/18/17 06:59 18:59 Intake Total 780 Balance 780 - Medications Medications: Current Medications Acetaminophen (Tylenol 325mg Tab) 325 mg PO Q4H PRN PRN Reason: Pain, Mild (1-3) Docusate Sodium (Colace) 100 mg PO BID [facility] Last Admin: 10/18/17 10:52 Dose: Not Given Gabapentin (Neurontin) 100 mg PO TID [facility] PRN Reason: Protocol Last Admin: 10/18/17 10:51 Dose: 100 mg Heparin Sodium (Porcine) (Heparin) 5,000 units SC Q12 [facility] PRN Reason: Protocol Last Admin: 10/18/17 10:50 Dose: 5,000 units Nafcillin Sodium 2 gm/ Sodium (Chloride) 100 mls @ 100 mls/hr IVPB Q6 [facility] PRN Reason: Protocol Last Admin: 10/18/17 05:41 Dose: 100 mls/hr Ibuprofen (Motrin Tab) 600 mg PO Q6H PRN PRN Reason: Pain, moderate (4-7) Last Admin: 10/18/17 10:51 Dose: 600 mg Lactobacillus Acidophilus (Bacid Acidophilus) 1 cap PO BID [facility] Last Admin: 10/18/17 10:51 Dose: 1 cap Nicotine (Nicoderm Cq) 1 patch TD DAILY [facility] Last Admin: 10/18/17 10:50 Dose: 1 patch Oxycodone HCl (Oxycodone Immediate Release Tab) 30 mg PO Q6H PRN PRN Reason: Pain, severe (8-10) Last Admin: 10/18/17 08:04 Dose: 30 mg Pantoprazole Sodium (Protonix Ec Tab) 40 mg PO 0600 [facility] Last Admin: 10/18/17 05:41 Dose: 40 mg - Labs Labs: 10/12/17 07:00 10/10/17 06:45 - Constitutional Appears: Non-toxic - Head Exam Head Exam: NORMAL INSPECTION - Respiratory Exam Respiratory Exam: Decreased Breath Sounds - Cardiovascular Exam Cardiovascular Exam: +S1, +S2 - GI/Abdominal Exam GI & Abdominal Exam: Soft. absent: Tenderness Assessment and Plan - Assessment and Plan (Free Text) Plan: Assessment Sepsis due to right foot skin and skin structure infection with associated osteomyelitis, with Staph aureus bacteremia and cannot rule out right sided endocarditis S/P debridement and I and D transaminitis probably from Nafcillin Plan will change Nafcillin to Cefazolin because of the elevation in ALT, AST, and will need 4-6 weeks of antibiotics with weekly ESR, CRP, CBC, CMP while on antibiotics (day 10 today) will continue to monitor clinically
[2017-10-18] MEDS: ceFAZolin 2 GM in Sodium Chloride 0.9% 100 ML IVPB SCH (22:36)
[2017-10-19] MEDS ORDERED: oxyCODONE 30 mg Immediate Release Tab PO STA (00:20)
[2017-10-19] MEDS ORDERED: oxyCODONE 10 mg Immediate Release Tab PO ONE (04:15)
[2017-10-19] MEDS ORDERED: Morphine 2 mg/ml ISec IVP PRN (06:55)
[2017-10-19] MEDS: ceFAZolin 2 GM in Sodium Chloride 0.9% 100 ML IVPB SCH ×3 (07:06→21:50)
[2017-10-19] MEDS ORDERED: oxyCODONE 30 mg Immediate Release Tab PO PRN (07:26)
[2017-10-19] MEDS: Lactobacillus Acidophilus 500 MU Cap PO SCH ×2 (10:14→18:34)
--- NOTE | 2017-10-19 10:33 | CP.PCM.PN ---
<Roxanna Iyer - Last Filed: 10/19/17 10:29> Subjective - Date & Time of Evaluation Date of Evaluation: 10/19/17 Time of Evaluation: 10:29 - Subjective Subjective: Podiatry Progress Note- Dr. Santiago/Dr. Murillo 37 year old male seen at bedside this morning 12 days s/p incision and drainage of right foot abscess with OM (DOS: 10/07/17) . Patient is seen resting comfortably in bed, in NAD, and AA0X3. Patient reports that he is feeling well. He reports the same pain to the right foot but says its fine at this time. Patient denies acute overnight events. Denies F/C/N/V/CP/SOB. Patient has no new pedal complaints at this time. Objective - Vital Signs/Intake and Output Vital Signs (last 24 hours): Temp Pulse Resp BP Pulse Ox 98.0 F 80 20 130/70 99 10/19/17 07:30 10/19/17 07:30 10/19/17 07:30 10/19/17 07:30 10/19/17 07:30 Intake and Output: 10/19/17 10/19/17 06:59 18:59 Intake Total 1480 Balance 1480 - Medications Medications: Current Medications Acetaminophen (Tylenol 325mg Tab) 325 mg PO Q4H PRN PRN Reason: Pain, Mild (1-3) Docusate Sodium (Colace) 100 mg PO BID [facility] Last Admin: 10/19/17 10:15 Dose: Not Given Famotidine (Pepcid) 20 mg PO 1000,2200 [facility] Last Admin: 10/19/17 10:14 Dose: 20 mg Gabapentin (Neurontin) 100 mg PO TID [facility] PRN Reason: Protocol Last Admin: 10/19/17 10:16 Dose: Not Given Heparin Sodium (Porcine) (Heparin) 5,000 units SC Q12 [facility] PRN Reason: Protocol Last Admin: 10/19/17 10:14 Dose: 5,000 units Cefazolin Sodium 2 gm/ Sodium (Chloride) 100 mls @ 200 mls/hr IVPB Q8 [facility] PRN Reason: Protocol Stop: 11/15/17 22:01 Last Admin: 10/19/17 07:06 Dose: 200 mls/hr Ibuprofen (Motrin Tab) 600 mg PO Q6H PRN PRN Reason: Pain, moderate (4-7) Last Admin: 10/18/17 17:06 Dose: 600 mg Lactobacillus Acidophilus (Bacid Acidophilus) 1 cap PO BID [facility] Last Admin: 10/19/17 10:14 Dose: 1 cap Nicotine (Nicoderm Cq) 1 patch TD DAILY [facility] Last Admin: 10/19/17 10:14 Dose: 1 patch Oxycodone HCl (Oxycodone Immediate Release Tab) 30 mg PO Q6H PRN PRN Reason: Pain, severe (8-10) Pantoprazole Sodium (Protonix Ec Tab) 40 mg PO 0600 [facility] Last Admin: 10/18/17 05:41 Dose: 40 mg - Labs Labs: 10/18/17 11:40 10/18/17 11:40 - Constitutional Appears: Well, Non-toxic, No Acute Distress - Extremities Exam Additional comments: Right lower extremity focused exanination: VASC: DP/PT pulses fully palpable 2/4. CFT < 3 seconds x 10 digits. Temperature runs warm to cool proximal to distal. Mild edema noted to the right foot which appears to be resolving - noticed by skin tension lines DERM: Surgical site at dorsum of right foot measuring approx 3.5cm x 0.3cm x 0.1cm. Wound bed exhibits granular tissue formation with no fibrotic tissue or necrosis. No malodor, no active purulence, no active drainage but mild serous drainage noted to bandage. Minimal erythema to the surrounding surgical site ORTHO: Severe pain with palpation to surgical site NEURO: gross and protective sensation intact - Neurological Exam Neurological Exam: Alert, Awake, Oriented x3 - Psychiatric Exam Psychiatric exam: Normal Affect, Normal Mood Assessment and Plan - Assessment and Plan (Free Text) Assessment: 37 y.o male 11 days s/p I&D and debridement of all nonviable tissue of right foot abscess with cellulitis and OM (DOS: 10/07/17); cellulitis now resolved Plan: -Pt seen and evaluated -Discussed with attending Dr. Santiago -Chart, lab, vitals reviewed- afebrile, WBC 4.9 -Right foot MRI reveals dorsal midfoot abscess and potential 1st metatarsal and medial cuneiform osteomyelitis -Surgical site cleansed with saline solution and dressed with optifoam -Wound heal by secondary intention as patient previously refused delayed primary closure. Healing well -Patient may shower as long as he keeps the dressing clean, dry, and intact -OR wound culture (+) for growth of S. Aureus -Bone biopsy- acute OM -Continue IV Nafcillin for 4-6 weeks per ID No PICC line as outpatient since pt is active IV drug abuser -Patient may WBAT in surgical shoe to right foot -Pain control per medical team -Podiatry will continue to follow pt while in house <Bird Santiago - Last Filed: 10/22/17 11:50> Objective - Vital Signs/Intake and Output Vital Signs (last 24 hours): Temp Pulse Resp BP Pulse Ox 98 F 85 18 124/78 100 10/21/17 16:35 10/21/17 16:35 10/21/17 16:35 10/21/17 16:35 10/21/17 16:35 - Medications Medications: Current Medications Docusate Sodium (Colace) 100 mg PO BID [facility] Last Admin: 10/22/17 10:33 Dose: Not Given Famotidine (Pepcid) 20 mg PO 1000,2200 [facility] Last Admin: 10/22/17 08:17 Dose: 20 mg Heparin Sodium (Porcine) (Heparin) 5,000 units SC Q12 [facility] PRN Reason: Protocol Last Admin: 10/22/17 10:33 Dose: Not Given Vancomycin HCl (Vancomycin 1gm) 1 gm in 250 mls @ 167 mls/hr IVPB Q12 [facility] PRN Reason: Protocol Last Admin: 10/22/17 10:25 Dose: 167 mls/hr Acetylcysteine 12,110 mg/ (Dextrose) 260.55 mls @ 200 mls/hr IVPB ONCE ONE Stop: 10/22/17 13:01 Acetylcysteine 4,040 mg/ (Dextrose) 520.2 mls @ 125 mls/hr IVPB ONCE ONE Stop: 10/22/17 15:52 Acetylcysteine 8,070 mg/ (Dextrose) 1,040.35 mls @ 62.5 mls/hr IVPB ONCE ONE Stop: 10/23/17 04:21 Ibuprofen (Motrin Tab) 600 mg PO Q6H PRN PRN Reason: Pain, moderate (4-7) Last Admin: 10/18/17 17:06 Dose: 600 mg Lactobacillus Acidophilus (Bacid Acidophilus) 1 cap PO BID [facility] Last Admin: 10/22/17 10:22 Dose: 1 cap Nicotine (Nicoderm Cq) 1 patch TD DAILY [facility] Last Admin: 10/22/17 10:33 Dose: Not Given Ondansetron HCl (Zofran Inj) 4 mg IVP Q4H PRN PRN Reason: Nausea/Vomiting Oxycodone HCl (Oxycodone Immediate Release Tab) 30 mg PO Q4H PRN PRN Reason: Pain, severe (8-10) Last Admin: 10/22/17 10:22 Dose: 30 mg - Labs Labs: 10/22/17 07:20 10/22/17 07:20 PT 13.2 SECONDS (9.4-12.5) H 10/22/17 07:20 INR 1.14 (0.93-1.08) H 10/22/17 07:20 Attending/Attestation - Attestation I have personally seen and examined this patient.: Yes I have fully participated in the care of the patient.: Yes I have reviewed all pertinent clinical information, including history, physical exam and plan: Yes
[2017-10-19 13:16] LABS: HEPATITIS B SURFACE AG Negative (NEGATIVE)
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
[2017-10-19 13:22] LABS: HEPATITIS A IGM NEGATIVE (NEGATIVE); HEPATITIS B CORE AB NEGATIVE (NEGATIVE)
[2017-10-19] MEDS: oxyCODONE 30 mg Immediate Release Tab PO PRN ×3 (14:31→22:38)
[2017-10-19 14:42] LABS: HEPATITIS C ANTIBODY REACTIVE (NEGATIVE)
--- NOTE | 2017-10-19 16:44 | US ---
HISTORY: Elevated LFT's COMPARISON: None. TECHNIQUE: Sonographic evaluation of the abdomen. FINDINGS: LIVER: Measures 17.1 cm. Mild increased echogenicity of the liver parenchyma. No mass. No intrahepatic bile duct dilatation. GALLBLADDER: The gallbladder is partially contracted. COMMON BILE DUCT: Measures 5.7 mm. No stones. No dilatation. PANCREAS: Unremarkable as visualized. No mass. No ductal dilatation. RIGHT KIDNEY: Measures 10.5 x 5.3 x 6.1cm. Normal echogenicity. No calculus, mass, or hydronephrosis. LEFT KIDNEY: Measures 12.2 x 5.7 x 6.3cm. Normal echogenicity. No calculus, mass, or hydronephrosis. SPLEEN: The spleen is upper normal limit in size measures 12.5 centimeter . No mass. AORTA: No aneurysmal dilatation. IVC: Unremarkable. OTHER FINDINGS: None. IMPRESSION: No evidence of cholelithiasis or cholecystitis. Mild hepatomegaly and mild increased echogenicity of the liver likely due to mild steatosis.
--- NOTE | 2017-10-19 20:34 | PN ---
DATE: SUBJECTIVE: Patient is in bed, in no acute distress, nontoxic. PHYSICAL EXAMINATION: VITAL SIGNS: Temperature is 98, blood pressure is 130/70, respiratory rate of 20, heart rate of 93. HEENT: Unremarkable. NECK: Supple. LUNGS: Have decreased breath sounds. HEART: Normal S1, S2. ABDOMEN: Soft, nontender. LABORATORY EXAMINATION: Reveals a white count of 4.9, hemoglobin of 12, platelets of 241. Chemistries reveal a BUN of 20, creatinine of 1.0. Urinalysis is noted. Vanco trough of 10.4. REVIEW OF ORDERS: Reveals the patient to be on Ancef, cefazolin. ASSESSMENT AND PLAN: This is a 37-year-old male seen earlier today in [facility], bed 2, with sepsis with right foot skin and skin structure associated osteomyelitis with a sensitive Staphylococcus aureus, possible right-sided endocarditis in a patient who is an intravenous drug abuser actively. Unable to use outpatient peripherally inserted central catheter line because of his active intravenous drug abuse or Ancef at this time. Review of cultures reveal the blood cultures on 10/07 that are negative. Mayur Coleman MD
[2017-10-20] MEDS: oxyCODONE 30 mg Immediate Release Tab PO PRN ×5 (02:35→19:48)
[2017-10-20] MEDS: ceFAZolin 2 GM in Sodium Chloride 0.9% 100 ML IVPB SCH ×2 (06:37→15:22)
[2017-10-20] MEDS: Lactobacillus Acidophilus 500 MU Cap PO SCH ×2 (09:36→17:26)
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
--- NOTE | 2017-10-20 14:12 | CP.PCM.PN ---
<Roxanna Iyer - Last Filed: 10/20/17 14:12> Subjective - Date & Time of Evaluation Date of Evaluation: 10/20/17 Time of Evaluation: 12:20 - Subjective Subjective: Podiatry Progress Note- Dr. Santiago/Dr. Murillo 37 year old male seen at bedside this morning 13 days s/p incision and drainage of right foot abscess with OM (DOS: 10/07/17). Patient is seen resting comfortably in bedside chair at time of visit, in NAD, and AA0X3. Patient reports that he is feeling just fine and ambulating well in surgical shoe. States he wants to know when he can shower and clean the foot without keeping it covered. Says his pain management regimen was changed yesterday and he slept very well last night, with pain well controlled. Denies F/C/N/V/CP/SOB. Patient has no new pedal complaints at this time. Objective - Vital Signs/Intake and Output Vital Signs (last 24 hours): Temp Pulse Resp BP Pulse Ox 98.1 F 66 20 127/69 97 10/20/17 07:30 10/20/17 07:30 10/20/17 07:30 10/20/17 07:30 10/20/17 07:30 Intake and Output: 10/20/17 10/20/17 06:59 18:59 Intake Total 1560 Balance 1560 - Medications Medications: Current Medications Acetaminophen (Tylenol 325mg Tab) 325 mg PO Q4H PRN PRN Reason: Pain, Mild (1-3) Docusate Sodium (Colace) 100 mg PO BID COUNTS [facility]CLUDE 234 BEDS AT THE [facility] Last Admin: 10/20/17 09:36 Dose: Not Given Famotidine (Pepcid) 20 mg PO 1000,2200 COUNTS INCLUDE 234 BEDS AT THE [facility] Last Admin: 10/20/17 09:37 Dose: Not Given Gabapentin (Neurontin) 100 mg PO TID [facility] PRN Reason: Protocol Last Admin: 10/20/17 09:35 Dose: Not Given Heparin Sodium (Porcine) (Heparin) 5,000 units SC Q12 [facility] PRN Reason: Protocol Last Admin: 10/20/17 09:37 Dose: Not Given Cefazolin Sodium 2 gm/ Sodium (Chloride) 100 mls @ 200 mls/hr IVPB Q8 [facility] PRN Reason: Protocol Stop: 11/15/17 22:01 Last Admin: 10/20/17 06:37 Dose: 200 mls/hr Ibuprofen (Motrin Tab) 600 mg PO Q6H PRN PRN Reason: Pain, moderate (4-7) Last Admin: 10/18/17 17:06 Dose: 600 mg Lactobacillus Acidophilus (Bacid Acidophilus) 1 cap PO BID COUNTS INCLUDE 234 BEDS AT THE [facility] Last Admin: 10/20/17 09:36 Dose: Not Given Nicotine (Nicoderm Cq) 1 patch TD DAILY COUNTS INCLUDE 234 BEDS AT THE [facility] Last Admin: 10/20/17 09:35 Dose: 1 patch Oxycodone HCl (Oxycodone Immediate Release Tab) 30 mg PO Q4H PRN PRN Reason: Pain, severe (8-10) Last Admin: 10/20/17 11:08 Dose: 30 mg Pantoprazole Sodium (Protonix Ec Tab) 40 mg PO 0600 COUNTS INCLUDE 234 BEDS AT THE [facility] Last Admin: 10/18/17 05:41 Dose: 40 mg - Labs Labs: 10/18/17 11:40 10/18/17 11:40 - Constitutional Appears: Well, Non-toxic, No Acute Distress - Extremities Exam Additional comments: Right lower extremity focused exanination: VASC: DP/PT pulses fully palpable 2/4. CFT < 3 seconds x 10 digits. Temperature runs warm to cool proximal to distal. Mild edema noted to the right foot which appears to be resolving - noticed by skin tension lines DERM: Linear surgical incision site at dorsomedial aspect of right foot measuring approx 3.3cm x 0.2cm x 0.1cm. Wound bed exhibits granular tissue formation with no fibrotic tissue or necrosis. No malodor, no active purulence, no active drainage but mild serous drainage noted to bandage. Minimal erythema to the surrounding surgical site ORTHO: Mild pain with palpation to surgical site NEURO: gross and protective sensation intact - Neurological Exam Neurological Exam: Alert, Awake, Oriented x3 - Psychiatric Exam Psychiatric exam: Normal Affect, Normal Mood Assessment and Plan - Assessment and Plan (Free Text) Assessment: 37 y/o male 13 days s/p I&D and debridement of all nonviable tissue of right foot abscess with cellulitis and OM (DOS: 10/07/17); cellulitis now resolved Plan: -Pt seen and evaluated -Discussed with attending Dr. Murillo -Chart, lab, vitals reviewed- afebrile, WBC 4.9 -R foot MRI reveals dorsal midfoot abscess and potential 1st metatarsal and medial cuneiform osteomyelitis -Surgical site cleansed with saline solution and dressed with optifoam bandage -Patient may shower as long as he keeps the dressing clean, dry, and intact -OR wound cx (+) for growth of S. Aureus -Bone biopsy- acute OM -Continue IV Nafcillin for 4-6 weeks per ID No PICC line as outpatient since pt is active IV drug abuser -Continue WBAT in surgical shoe to right foot -Pain control per medical team -Podiatry will continue to follow pt while in house <Maida Murillo - Last Filed: 10/20/17 16:02> Objective - Vital Signs/Intake and Output Vital Signs (last 24 hours): Temp Pulse Resp BP Pulse Ox 98.1 F 66 20 127/69 97 10/20/17 07:30 10/20/17 07:30 10/20/17 07:30 10/20/17 07:30 10/20/17 07:30 Intake and Output: 10/20/17 10/20/17 06:59 18:59 Intake Total 1560 Balance 1560 - Medications Medications: Current Medications Acetaminophen (Tylenol 325mg Tab) 325 mg PO Q4H PRN PRN Reason: Pain, Mild (1-3) Docusate Sodium (Colace) 100 mg PO BID COUNTS INCLUDE 234 BEDS AT THE [facility] Last Admin: 10/20/17 09:36 Dose: Not Given Famotidine (Pepcid) 20 mg PO 1000,2200 COUNTS INCLUDE 234 BEDS AT THE [facility] Last Admin: 10/20/17 09:37 Dose: Not Given Gabapentin (Neurontin) 100 mg PO TID [facility] PRN Reason: Protocol Last Admin: 10/20/17 09:35 Dose: Not Given Heparin Sodium (Porcine) (Heparin) 5,000 units SC Q12 [facility] PRN Reason: Protocol Last Admin: 10/20/17 09:37 Dose: Not Given Cefazolin Sodium 2 gm/ Sodium (Chloride) 100 mls @ 200 mls/hr IVPB Q8 [facility] PRN Reason: Protocol Stop: 11/15/17 22:01 Last Admin: 10/20/17 15:22 Dose: 200 mls/hr Ibuprofen (Motrin Tab) 600 mg PO Q6H PRN PRN Reason: Pain, moderate (4-7) Last Admin: 10/18/17 17:06 Dose: 600 mg Lactobacillus Acidophilus (Bacid Acidophilus) 1 cap PO BID COUNTS INCLUDE 234 BEDS AT THE [facility] Last Admin: 10/20/17 09:36 Dose: Not Given Nicotine (Nicoderm Cq) 1 patch TD DAILY COUNTS INCLUDE 234 BEDS AT THE [facility] Last Admin: 10/20/17 09:35 Dose: 1 patch Oxycodone HCl (Oxycodone Immediate Release Tab) 30 mg PO Q4H PRN PRN Reason: Pain, severe (8-10) Last Admin: 10/20/17 15:23 Dose: 30 mg Pantoprazole Sodium (Protonix Ec Tab) 40 mg PO 0600 COUNTS INCLUDE 234 BEDS AT THE [facility] Last Admin: 10/18/17 05:41 Dose: 40 mg - Labs Labs: 10/18/17 11:40 10/18/17 11:40 Attending/Attestation - Attestation I have personally seen and examined this patient.: Yes I have fully participated in the care of the patient.: Yes I have reviewed all pertinent clinical information, including history, physical exam and plan: Yes
[2017-10-20] MEDS ORDERED: Vancomycin 1gm in NS 250ml 1 GM/250 ML BAG IVPB SCH (16:45)
--- NOTE | 2017-10-20 18:21 | PN ---
DATE: 10/20/2017 SUBJECTIVE: Patient was seen early this morning in 568, bed 2. No fevers and no chills. No nausea, no vomiting. PHYSICAL EXAMINATION: VITAL SIGNS: Temperature is 98, blood pressure is 120/60, respiratory rate 20, heart rate of 80. HEENT: Unremarkable. NECK: Supple. LUNGS: Decreased breath sounds. HEART: Normal S1 and S2. ABDOMEN: Soft, nontender. LABORATORY DATA: Revealed the patient's white count is 4.9, hemoglobin of 12, platelets of 241. BUN of 20, creatinine of 1. AST is 277. Urinalysis is noted and HIV is negative. ASSESSMENT AND PLAN: A 37-year-old male with sepsis to the right foot, skin and skin structure associated with osteomyelitis with a sensitive Staphylococcus aureus, possible right-sided endocarditis and patient is an active intravenous drug abuser, unable to place a peripherally inserted central catheter line as outpatient because of his active intravenous drug use and currently on Ancef, follow the liver function tests. Mayur Coleman MD
[2017-10-20] MEDS: Vancomycin 1gm in NS 250ml 1 GM/250 ML BAG IVPB SCH (21:26)
[2017-10-21] MEDS: oxyCODONE 30 mg Immediate Release Tab PO PRN ×6 (00:07→22:08)
[2017-10-21 07:10] LABS: BASO # 0.03 K/mm3 (0.0-2.0); BASO % 0.6 % (0.0-3.0); EOS # 0.1 (0.0-0.7); EOS % 2.8 % (1.5-5.0); GRAN # 2.21 (1.4-6.5); GRAN % 47.5 % (50.0-68.0); HEMOGLOBIN 12.6 g/dL (14.0-18.0); LYMPH # 1.6 (1.2-3.4); LYMPH % 35.3 % (22.0-35.0); MEAN CORPUSCULAR HEMOGLOBIN 29.4 pg (25.0-35.0); MEAN CORPUSCULAR HGB CONC 32.7 g/dl (31.0-37.0); MONO # 0.6 (0.1-0.6); MONO % 13.8 % (1.0-6.0); RBC 4.28 10^6/uL (3.5-6.1); RED CELL DISTRIBUTION WIDTH 13.5 % (11.5-14.5); WHITE BLOOD COUNT 4.7 10^3/ul (4.5-11.0)
[2017-10-21 08:03] LABS: ALB/GLOB RATIO 1.1 (1.1-1.8); ALT/SGPT 1909 U/L (7-56); AST/SGOT 1357 U/L (17-59); BLOOD UREA NITROGEN 19 mg/dL (7-21); GFR AFRICAN-AMERICAN > 60; GFR NON-AFRICAN AMERICAN > 60
[2017-10-21] MEDS: Lactobacillus Acidophilus 500 MU Cap PO SCH ×2 (10:20→17:38)
[2017-10-21] MEDS: Vancomycin 1gm in NS 250ml 1 GM/250 ML BAG IVPB SCH ×2 (10:27→22:06)
--- NOTE | 2017-10-21 12:07 | CP.PCM.PN ---
Subjective - Date & Time of Evaluation Date of Evaluation: 10/21/17 Time of Evaluation: 12:07 - Subjective Subjective: Podiatry Progress Note- Dr. Santiago/Dr. Murillo 37 year old male seen at bedside this morning 2 weeks s/p incision and drainage of right foot abscess with OM (DOS: 10/07/17). Patient is seen resting comfortably in bed at time of visit, in NAD, and AA0X3. Says he slept a little patrick last night. States he wants to be able to clean the rest of his foot. Denies having any pain in the right foot as of now but says it is tender to touch over the surgical site. Denies F/C/N/V/CP/SOB. Patient has no new pedal complaints at this time. Objective - Vital Signs/Intake and Output Vital Signs (last 24 hours): Temp Pulse Resp BP Pulse Ox 97.8 F 72 20 104/53 L 97 10/21/17 07:30 10/21/17 07:30 10/21/17 07:30 10/21/17 07:30 10/21/17 07:30 Intake and Output: 10/21/17 10/21/17 06:59 18:59 Intake Total 1140 Balance 1140 - Medications Medications: Current Medications Docusate Sodium (Colace) 100 mg PO BID [facility] Last Admin: 10/21/17 10:20 Dose: Not Given Famotidine (Pepcid) 20 mg PO 1000,2200 [facility] Last Admin: 10/21/17 10:21 Dose: Not Given Heparin Sodium (Porcine) (Heparin) 5,000 units SC Q12 [facility] PRN Reason: Protocol Last Admin: 10/21/17 10:21 Dose: Not Given Vancomycin HCl (Vancomycin 1gm) 1 gm in 250 mls @ 167 mls/hr IVPB Q12 [facility] PRN Reason: Protocol Last Admin: 10/21/17 10:27 Dose: 167 mls/hr Ibuprofen (Motrin Tab) 600 mg PO Q6H PRN PRN Reason: Pain, moderate (4-7) Last Admin: 10/18/17 17:06 Dose: 600 mg Lactobacillus Acidophilus (Bacid Acidophilus) 1 cap PO BID [facility] Last Admin: 10/21/17 10:20 Dose: Not Given Nicotine (Nicoderm Cq) 1 patch TD DAILY [facility] Last Admin: 10/21/17 10:22 Dose: Not Given Oxycodone HCl (Oxycodone Immediate Release Tab) 30 mg PO Q4H PRN PRN Reason: Pain, severe (8-10) Last Admin: 10/21/17 08:30 Dose: 30 mg Pantoprazole Sodium (Protonix Ec Tab) 40 mg PO 0600 [facility] Last Admin: 10/18/17 05:41 Dose: 40 mg - Labs Labs: 10/21/17 06:30 10/21/17 06:30 - Constitutional Appears: Well, Non-toxic, No Acute Distress - Extremities Exam Additional comments: Right lower extremity focused examination: VASC: DP/PT pulses fully palpable 2/4. CFT < 3 seconds x 10 digits. Temperature runs warm to cool proximal to distal. No edema noted to RLE DERM: Linear surgical incision site at dorsomedial aspect of right foot measuring approx 3.3cm x 0.2cm x 0.1cm. Wound bed exhibits granular tissue formation with no fibrotic tissue or necrosis. Wound borders are mildly hyperkeratotic with evidence of scab formation. No malodor, no active purulence , no active drainage but mild serous drainage noted to bandage. Minimal erythema to the surrounding surgical site ORTHO: Mild tenderness with palpation to surgical site NEURO: gross and protective sensation intact - Neurological Exam Neurological Exam: Alert, Awake, Oriented x3 - Psychiatric Exam Psychiatric exam: Normal Affect, Normal Mood Assessment and Plan - Assessment and Plan (Free Text) Assessment: 37 y/o male 2 weeks s/p I&D and debridement of all nonviable tissue of right foot abscess with cellulitis and OM (DOS: 10/07/17); cellulitis now resolved Plan: -Pt seen and evaluated -Discussed with attending Dr. Murillo -Chart, lab, vitals reviewed- afebrile, WBC 4.7 -Surgical site cleansed with saline solution and dressed with optifoam bandage -Patient may shower as long as he keeps the dressing clean, dry, and intact -OR wound cx (+) for growth of S. Aureus -Bone biopsy- acute OM -Continue IV Nafcillin for 4-6 weeks per ID No PICC line as outpatient since pt is active IV drug abuser -Continue WBAT in surgical shoe to right foot -Pain control per medical team -Podiatry will continue to follow pt while in house
--- NOTE | 2017-10-21 14:23 | CP.PCM.PN ---
Subjective - Date & Time of Evaluation Date of Evaluation: 10/21/17 Time of Evaluation: 11:35 - Subjective Subjective: No abdominal pain, no fevers, less pain in the right foot. Objective - Vital Signs/Intake and Output Vital Signs (last 24 hours): Temp Pulse Resp BP Pulse Ox 97.8 F 72 20 104/53 L 97 10/21/17 07:30 10/21/17 07:30 10/21/17 07:30 10/21/17 07:30 10/21/17 07:30 Intake and Output: 10/21/17 10/21/17 06:59 18:59 Intake Total 1140 Balance 1140 - Medications Medications: Current Medications Docusate Sodium (Colace) 100 mg PO BID [facility] Last Admin: 10/21/17 10:20 Dose: Not Given Famotidine (Pepcid) 20 mg PO 1000,2200 [facility] Last Admin: 10/21/17 10:21 Dose: Not Given Heparin Sodium (Porcine) (Heparin) 5,000 units SC Q12 [facility] PRN Reason: Protocol Last Admin: 10/21/17 10:21 Dose: Not Given Vancomycin HCl (Vancomycin 1gm) 1 gm in 250 mls @ 167 mls/hr IVPB Q12 [facility] PRN Reason: Protocol Last Admin: 10/21/17 10:27 Dose: 167 mls/hr Ibuprofen (Motrin Tab) 600 mg PO Q6H PRN PRN Reason: Pain, moderate (4-7) Last Admin: 10/18/17 17:06 Dose: 600 mg Lactobacillus Acidophilus (Bacid Acidophilus) 1 cap PO BID [facility] Last Admin: 10/21/17 10:20 Dose: Not Given Nicotine (Nicoderm Cq) 1 patch TD DAILY [facility] Last Admin: 10/21/17 10:22 Dose: Not Given Oxycodone HCl (Oxycodone Immediate Release Tab) 30 mg PO Q4H PRN PRN Reason: Pain, severe (8-10) Last Admin: 10/21/17 08:30 Dose: 30 mg Pantoprazole Sodium (Protonix Ec Tab) 40 mg PO 0600 [facility] Last Admin: 10/18/17 05:41 Dose: 40 mg - Labs Labs: 10/21/17 06:30 10/21/17 06:30 - Constitutional Appears: Non-toxic - Head Exam Head Exam: NORMAL INSPECTION - Neck Exam Neck Exam: absent: Meningismus - Respiratory Exam Respiratory Exam: Decreased Breath Sounds - Cardiovascular Exam Cardiovascular Exam: +S1, +S2 - GI/Abdominal Exam GI & Abdominal Exam: Soft. absent: Tenderness Assessment and Plan - Assessment and Plan (Free Text) Plan: Assessment Sepsis due to right foot skin and skin structure infection with associated osteomyelitis, with Staph aureus bacteremia and cannot rule out right sided endocarditis S/P debridement and I and D transaminitis probably from Nafcillin Plan AST and ALT continue to increase despite switching Nafcillin to Cefazolin - we have switched to Vancomycin since yesterday and will continue to monitor liver tests (day 13 today) will continue to monitor clinically
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
--- NOTE | 2017-10-21 20:12 | US ---
PROCEDURE: Portal vein duplex ultrasound. CLINICAL HISTORY: Deteriorating liver function. Evaluate for portal vein thrombosis. PHYSICIAN(S): Thong Almonte M.D. FINDINGS: The extrahepatic portal vein is patent with hepatopetal flow. No sonographic evidence for thrombus or obstruction is seen. The 3 hepatic veins are visualized centrally and patent. The hepatic artery is patent. The spleen is borderline enlarged. No ascites is appreciated in the upper abdomen IMPRESSION: 1. Patent portal vein with hepatopetal flow.
[2017-10-22] MEDS: oxyCODONE 30 mg Immediate Release Tab PO PRN ×6 (02:04→22:41)
[2017-10-22 07:55] LABS: BASO # 0.05 K/mm3 (0.0-2.0); BASO % 0.6 % (0.0-3.0); EOS # 0.2 (0.0-0.7); EOS % 1.8 % (1.5-5.0); GRAN # 3.46 (1.4-6.5); GRAN % 41.2 % (50.0-68.0); HEMOGLOBIN 13.3 g/dL (14.0-18.0); LYMPH % 47.7 % (22.0-35.0); MEAN CELL VOLUME 89.2 fl (80.0-105.0); MEAN CORPUSCULAR HGB CONC 33.6 g/dl (31.0-37.0); MEAN PLATELET VOLUME 11.4 fl (7.0-11.0); MONO # 0.7 (0.1-0.6); MONO % 8.7 % (1.0-6.0); RBC 4.44 10^6/uL (3.5-6.1); RED CELL DISTRIBUTION WIDTH 13.4 % (11.5-14.5); WHITE BLOOD COUNT 8.4 10^3/ul (4.5-11.0)
[2017-10-22 08:04] LABS: IRON 133 ug/dL (45-180)
[2017-10-22 08:06] LABS: ALB/GLOB RATIO 1.1 (1.1-1.8); ALBUMIN 4.5 g/dL (3.0-4.8); BLOOD UREA NITROGEN 17 mg/dL (7-21); CALCIUM 10.1 mg/dL (8.4-10.5); GFR AFRICAN-AMERICAN > 60; GFR NON-AFRICAN AMERICAN > 60
[2017-10-22 08:08] LABS: INR 1.14 (0.93-1.08); PROTHROMBIN TIME 13.2 SECONDS (9.4-12.5)
[2017-10-22 08:14] LABS: % IRON SATURATION 32 % (20-55); TOTAL IRON BINDING CAPACITY 418 ug/dL (261-462)
[2017-10-22 08:25] LABS: AST/SGOT 1332 U/L (17-59)
[2017-10-22 08:35] LABS: ALT/SGPT 2423 U/L (7-56)
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
[2017-10-22] MEDS: Lactobacillus Acidophilus 500 MU Cap PO SCH ×2 (10:22→18:47)
[2017-10-22] MEDS: Vancomycin 1gm in NS 250ml 1 GM/250 ML BAG IVPB SCH ×2 (10:25→21:20)
[2017-10-22] MEDS ORDERED: WATER IVPB ONE ×3 (11:43→17:10)
[2017-10-22] MEDS ORDERED: DEXTROSE 5% IVPB ONE ×3 (11:43→17:10)
[2017-10-22] MEDS ORDERED: ACETYLCYSTEINE IVPB ONE ×3 (11:43→17:10)
[2017-10-22 13:06] LABS: IMMUNOGLOBULIN A 347.9 mg/dL (70.0-400.0)
--- NOTE | 2017-10-22 14:02 | CP.PCM.PN ---
<Roxanna Iyer - Last Filed: 10/22/17 14:04> Subjective - Date & Time of Evaluation Date of Evaluation: 10/22/17 Time of Evaluation: 14:02 - Subjective Subjective: Podiatry Progress Note- Dr. Santiago/Dr. Murillo 37 year old male seen at bedside this morning with attending Dr. Santiago, 15 days s/p incision and drainage of right foot abscess with OM (DOS: 10/07/17). Patient is seen resting comfortably in bed at time of visit, in NAD, and AA0X3. Denies any overnight events. Admits to mild tenderness when anything touches the top of the foot, but says his pain is overall well controlled. Denies F/C/N/ V/CP/SOB. Patient has no new pedal complaints at this time. Objective - Vital Signs/Intake and Output Vital Signs (last 24 hours): Temp Pulse Resp BP Pulse Ox 98 F 85 18 124/78 100 10/21/17 16:35 10/21/17 16:35 10/21/17 16:35 10/21/17 16:35 10/21/17 16:35 Intake and Output: 10/22/17 10/22/17 06:59 18:59 Intake Total 480 Balance 480 - Medications Medications: Current Medications Docusate Sodium (Colace) 100 mg PO BID [facility] Last Admin: 10/22/17 10:33 Dose: Not Given Famotidine (Pepcid) 20 mg PO 1000,2200 [facility] Last Admin: 10/22/17 08:17 Dose: 20 mg Heparin Sodium (Porcine) (Heparin) 5,000 units SC Q12 [facility] PRN Reason: Protocol Last Admin: 10/22/17 10:33 Dose: Not Given Vancomycin HCl (Vancomycin 1gm) 1 gm in 250 mls @ 167 mls/hr IVPB Q12 [facility] PRN Reason: Protocol Last Admin: 10/22/17 10:25 Dose: 167 mls/hr Acetylcysteine 4,040 mg/ (Dextrose) 520.2 mls @ 125 mls/hr IVPB ONCE ONE Stop: 10/22/17 17:10 Acetylcysteine 8,070 mg/ (Dextrose) 1,040.35 mls @ 62.5 mls/hr IVPB ONCE ONE Stop: 10/23/17 09:48 Ibuprofen (Motrin Tab) 600 mg PO Q6H PRN PRN Reason: Pain, moderate (4-7) Last Admin: 10/18/17 17:06 Dose: 600 mg Lactobacillus Acidophilus (Bacid Acidophilus) 1 cap PO BID [facility] Last Admin: 10/22/17 10:22 Dose: 1 cap Nicotine (Nicoderm Cq) 1 patch TD DAILY [facility] Last Admin: 10/22/17 10:33 Dose: Not Given Ondansetron HCl (Zofran Inj) 4 mg IVP Q4H PRN PRN Reason: Nausea/Vomiting Oxycodone HCl (Oxycodone Immediate Release Tab) 30 mg PO Q4H PRN PRN Reason: Pain, severe (8-10) Last Admin: 10/22/17 10:22 Dose: 30 mg - Labs Labs: 10/22/17 07:20 10/22/17 07:20 PT 13.2 SECONDS (9.4-12.5) H 10/22/17 07:20 INR 1.14 (0.93-1.08) H 10/22/17 07:20 - Constitutional Appears: Well, Non-toxic, No Acute Distress - Extremities Exam Additional comments: Right lower extremity focused examination: VASC: DP/PT pulses fully palpable 2/4. CFT < 3 seconds x 10 digits. Temperature runs warm to cool proximal to distal. No edema noted to RLE DERM: Linear surgical incision site at dorsomedial aspect of right foot measuring approx 3.3cm x 0.2cm x 0.1cm. Wound bed exhibits granular tissue formation with no fibrotic tissue or necrosis. Wound borders are mildly hyperkeratotic with evidence of scab formation. No malodor, no active purulence , no active drainage but mild serous drainage noted to bandage. Minimal erythema to the surrounding surgical site ORTHO: Mild tenderness with palpation to surgical site NEURO: gross and protective sensation intact - Neurological Exam Neurological Exam: Alert, Awake, Oriented x3 - Psychiatric Exam Psychiatric exam: Normal Affect, Normal Mood Assessment and Plan - Assessment and Plan (Free Text) Assessment: 37 y/o male 15 days s/p I&D and debridement of all nonviable tissue of right foot abscess with cellulitis and OM (DOS: 10/07/17); cellulitis now resolved Plan: -Pt seen and evaluated with attending Dr. Arloro -Chart, lab, vitals reviewed- afebrile, WBC 8.4 -Surgical site cleansed with saline solution and dressed with optifoam bandage -Patient may shower as long as he keeps the dressing clean, dry, and intact -OR wound cx (+) for growth of S. Aureus -Bone biopsy- acute OM -Continue IV Nafcillin for 4-6 weeks per ID No PICC line as outpatient since pt is active IV drug abuser -Continue WBAT in surgical shoe to right foot -Pain control per medical team -Podiatry will continue to follow pt while in house <Bird Santiago - Last Filed: 10/22/17 17:48> Objective - Vital Signs/Intake and Output Vital Signs (last 24 hours): Temp Pulse Resp BP Pulse Ox 98 F 76 18 121/63 99 10/22/17 14:00 10/22/17 14:00 10/22/17 14:00 10/22/17 14:00 10/22/17 14:00 Intake and Output: 10/22/17 10/22/17 06:59 18:59 Intake Total 480 Balance 480 - Medications Medications: Current Medications Docusate Sodium (Colace) 100 mg PO BID [facility] Last Admin: 10/22/17 10:33 Dose: Not Given Famotidine (Pepcid) 20 mg PO 1000,2200 [facility] Last Admin: 10/22/17 08:17 Dose: 20 mg Heparin Sodium (Porcine) (Heparin) 5,000 units SC Q12 [facility] PRN Reason: Protocol Last Admin: 10/22/17 10:33 Dose: Not Given Vancomycin HCl (Vancomycin 1gm) 1 gm in 250 mls @ 167 mls/hr IVPB Q12 [facility] PRN Reason: Protocol Last Admin: 10/22/17 10:25 Dose: 167 mls/hr Acetylcysteine 8,070 mg/ (Dextrose) 1,040.35 mls @ 62.5 mls/hr IVPB ONCE ONE Stop: 10/23/17 09:48 Ibuprofen (Motrin Tab) 600 mg PO Q6H PRN PRN Reason: Pain, moderate (4-7) Last Admin: 10/18/17 17:06 Dose: 600 mg Lactobacillus Acidophilus (Bacid Acidophilus) 1 cap PO BID [facility] Last Admin: 10/22/17 10:22 Dose: 1 cap Nicotine (Nicoderm Cq) 1 patch TD DAILY [facility] Last Admin: 10/22/17 10:33 Dose: Not Given Ondansetron HCl (Zofran Inj) 4 mg IVP Q4H PRN PRN Reason: Nausea/Vomiting Oxycodone HCl (Oxycodone Immediate Release Tab) 30 mg PO Q4H PRN PRN Reason: Pain, severe (8-10) Last Admin: 10/22/17 14:21 Dose: 30 mg - Labs Labs: 10/22/17 07:20 10/22/17 07:20 PT 13.2 SECONDS (9.4-12.5) H 10/22/17 07:20 INR 1.14 (0.93-1.08) H 10/22/17 07:20 Attending/Attestation - Attestation I have personally seen and examined this patient.: Yes I have fully participated in the care of the patient.: Yes I have reviewed all pertinent clinical information, including history, physical exam and plan: Yes
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
--- NOTE | 2017-10-22 16:26 | CP.PCM.PN ---
Subjective - Date & Time of Evaluation Date of Evaluation: 10/22/17 Time of Evaluation: 12:25 - Subjective Subjective: No fevers, not in distress, afebrile, no nausea, no abdominal pain, less pain in the foot. Objective - Vital Signs/Intake and Output Vital Signs (last 24 hours): Temp Pulse Resp BP Pulse Ox 98 F 85 18 124/78 100 10/21/17 16:35 10/21/17 16:35 10/21/17 16:35 10/21/17 16:35 10/21/17 16:35 - Medications Medications: Current Medications Docusate Sodium (Colace) 100 mg PO BID [facility] Last Admin: 10/22/17 10:33 Dose: Not Given Famotidine (Pepcid) 20 mg PO 1000,2200 [facility] Last Admin: 10/22/17 08:17 Dose: 20 mg Heparin Sodium (Porcine) (Heparin) 5,000 units SC Q12 [facility] PRN Reason: Protocol Last Admin: 10/22/17 10:33 Dose: Not Given Vancomycin HCl (Vancomycin 1gm) 1 gm in 250 mls @ 167 mls/hr IVPB Q12 [facility] PRN Reason: Protocol Last Admin: 10/22/17 10:25 Dose: 167 mls/hr Ibuprofen (Motrin Tab) 600 mg PO Q6H PRN PRN Reason: Pain, moderate (4-7) Last Admin: 10/18/17 17:06 Dose: 600 mg Lactobacillus Acidophilus (Bacid Acidophilus) 1 cap PO BID [facility] Last Admin: 10/22/17 10:22 Dose: 1 cap Nicotine (Nicoderm Cq) 1 patch TD DAILY [facility] Last Admin: 10/22/17 10:33 Dose: Not Given Ondansetron HCl (Zofran Inj) 4 mg IVP Q4H PRN PRN Reason: Nausea/Vomiting Oxycodone HCl (Oxycodone Immediate Release Tab) 30 mg PO Q4H PRN PRN Reason: Pain, severe (8-10) Last Admin: 10/22/17 10:22 Dose: 30 mg - Labs Labs: 10/22/17 07:20 10/22/17 07:20 PT 13.2 SECONDS (9.4-12.5) H 10/22/17 07:20 INR 1.14 (0.93-1.08) H 10/22/17 07:20 - Constitutional Appears: Chronically Ill - Head Exam Head Exam: NORMAL INSPECTION - ENT Exam ENT Exam: Mucous Membranes Moist - Neck Exam Neck Exam: absent: Meningismus - Respiratory Exam Respiratory Exam: Decreased Breath Sounds - Cardiovascular Exam Cardiovascular Exam: +S1, +S2 - GI/Abdominal Exam GI & Abdominal Exam: Soft. absent: Tenderness - Extremities Exam Additional comments: right foot with dressings in place Assessment and Plan - Assessment and Plan (Free Text) Plan: Assessment Sepsis due to right foot skin and skin structure infection with associated osteomyelitis, with methicillin-sensitive Staph aureus bacteremia and cannot rule out right sided endocarditis S/P debridement and I and D transaminitis probably from Nafcillin chronic active Hepatitis C Plan AST and ALT continue to increase despite switching d/c of Nafcillin and Cefazolin - continue Vancomycin and will continue to monitor liver tests (day 14 today) GI to evaluate further transaminitis Hepatitis C should be addressed as an outpatient will continue to monitor clinically
--- NOTE | 2017-10-22 17:52 | CT ---
PROCEDURE: CT Abdomen with and without intravenous contrast HISTORY: Elevated LFTs. Relevant surgical history: Prior appendectomy COMPARISON: 10/19/2017 abdominal ultrasound October 21, 2017. Portal vein duplex ultrasound. Summary of findings on the comparison examination: Patent portal vein with hepatopetal flow. TECHNIQUE: Axial images of the abdomen from lung bases to iliac crest with and without intravenous contrast enhancement. Coronal and sagittal reformats generated. Oral contrast also administered. Intravenous contrast Dose: 150 cc Omnipaque 350. Radiation dose: Total exam DLP = 1099.08 mGy-cm. This CT exam was performed using one or more of the following dose reduction techniques: Automated exposure control, adjustment of the mA and/or kV according to patient size, and/or use of iterative reconstruction technique. FINDINGS: LOWER THORAX: Unremarkable. LIVER: Mild hepatomegaly. Hepatic steatosis without focal mass. Patent portal venous system. Unremarkable hepatic veins as visualized. GALLBLADDER AND BILE DUCTS: Unremarkable. PANCREAS: Unremarkable. No gross lesion or ductal dilatation. SPLEEN: Mild splenomegaly. Orthogonal measurements 6.9 x 13.5 cm. No focal splenic abnormalities. Patent splenic vein. ADRENALS: Unremarkable. No mass. KIDNEYS AND URETERS: Unremarkable. No hydronephrosis. No solid mass. VASCULATURE: Unremarkable. No aortic aneurysm. BOWEL: Rectal wall thickening. Clinically, either findings to suggest colitis/proctitis? Constipation without fecal impaction or obstruction. Limitations of the current examination: And absence of oral contrast/ paucity of abdominal and pelvic fat precludes optimal assessment of colon and small bowel. APPENDIX: Part appendectomy PERITONEUM: Unremarkable. No free fluid. No free air. LYMPH NODES: Unremarkable. No enlarged lymph nodes. BLADDER: Unremarkable. REPRODUCTIVE: Unremarkable. BONES: No acute fracture. OTHER FINDINGS: None. IMPRESSION: Hepatic steatosis without focal or diffuse abnormality. Patent portal veins. Mild splenomegaly without focal abnormality. Patent splenic vein. Mild thickening of the wall of the rectum suggestive of proctitis.
[2017-10-23] MEDS: oxyCODONE 30 mg Immediate Release Tab PO PRN ×6 (02:47→22:03)
[2017-10-23 04:25] LABS: INR 1.14 (0.93-1.08)
[2017-10-23 04:44] LABS: ALB/GLOB RATIO 1.1 (1.1-1.8); ALBUMIN 3.7 g/dL (3.0-4.8); AST/SGOT 650 U/L (17-59); BLOOD UREA NITROGEN 19 mg/dL (7-21); CALCIUM 9.6 mg/dL (8.4-10.5); GFR AFRICAN-AMERICAN > 60; GFR NON-AFRICAN AMERICAN > 60
[2017-10-23 08:02] LABS: ALT/SGPT 1539 U/L (7-56)
[2017-10-23 08:37] LABS: CERULOPLASMIN 39 mg/dL (18-36)
[2017-10-23] MEDS: Lactobacillus Acidophilus 500 MU Cap PO SCH ×2 (10:47→18:31)
[2017-10-23] MEDS: Vancomycin 1.5 GM in Sodium Chloride 0.9% 500 ML IVPB SCH ×2 (10:48→22:03)
--- NOTE | 2017-10-23 11:36 | CP.PCM.PN ---
<Reggie,[place] - Last Filed: 10/23/17 11:37> Subjective - Date & Time of Evaluation Date of Evaluation: 10/23/17 Time of Evaluation: 07:00 - Subjective Subjective: GI Fellow PGY 4 Progress Note Pt seen and evaluated at bedside, no abdominal pain, N/V. Tolerating diet, +BM. ROS: A 12pr ROS was negative except as above. Objective - Vital Signs/Intake and Output Vital Signs (last 24 hours): Temp Pulse Resp BP Pulse Ox 98 F 76 18 121/63 99 10/22/17 14:00 10/22/17 14:00 10/22/17 14:00 10/22/17 14:00 10/22/17 14:00 Intake and Output: 10/23/17 10/23/17 06:59 18:59 Intake Total 240 Balance 240 - Medications Medications: Current Medications Docusate Sodium (Colace) 100 mg PO BID [facility] Last Admin: 10/23/17 10:51 Dose: Not Given Famotidine (Pepcid) 20 mg PO 1000,2200 [facility] Last Admin: 10/23/17 10:47 Dose: 20 mg Heparin Sodium (Porcine) (Heparin) 5,000 units SC Q12 [facility] PRN Reason: Protocol Last Admin: 10/23/17 10:51 Dose: Not Given Vancomycin HCl 1.5 gm/ Sodium (Chloride) 500 mls @ 167 mls/hr IVPB Q12H [facility] PRN Reason: Protocol Last Admin: 10/23/17 10:48 Dose: 167 mls/hr Ibuprofen (Motrin Tab) 600 mg PO Q6H PRN PRN Reason: Pain, moderate (4-7) Last Admin: 10/18/17 17:06 Dose: 600 mg Lactobacillus Acidophilus (Bacid Acidophilus) 1 cap PO BID [facility] Last Admin: 10/23/17 10:47 Dose: 1 cap Nicotine (Nicoderm Cq) 1 patch TD DAILY [facility] Last Admin: 10/23/17 10:51 Dose: Not Given Ondansetron HCl (Zofran Inj) 4 mg IVP Q4H PRN PRN Reason: Nausea/Vomiting Oxycodone HCl (Oxycodone Immediate Release Tab) 30 mg PO Q4H PRN PRN Reason: Pain, severe (8-10) Last Admin: 03/21/18 10:47 Dose: 30 mg - Labs Labs: 10/22/17 07:20 10/23/17 04:00 PT 13.0 SECONDS (9.4-12.5) H 10/23/17 04:00 INR 1.14 (0.93-1.08) H 10/23/17 04:00 - Constitutional Appears: Non-toxic, No Acute Distress - Head Exam Head Exam: ATRAUMATIC, NORMAL INSPECTION, NORMOCEPHALIC - Eye Exam Eye Exam: EOMI, Normal appearance Pupil Exam: NORMAL ACCOMODATION, PERRL - ENT Exam ENT Exam: Mucous Membranes Moist, Normal Exam - Neck Exam Neck Exam: Full ROM, Normal Inspection - Respiratory Exam Respiratory Exam: Clear to Ausculation Bilateral, NORMAL BREATHING PATTERN - Cardiovascular Exam Cardiovascular Exam: REGULAR RHYTHM, RRR, +S1, +S2 - GI/Abdominal Exam GI & Abdominal Exam: Soft, Normal Bowel Sounds. absent: Distended, Tenderness - Extremities Exam Extremities Exam: Full ROM - Back Exam Back Exam: NORMAL INSPECTION - Neurological Exam Neurological Exam: Alert, Awake, Oriented x3 - Psychiatric Exam Psychiatric exam: Normal Affect, Normal Mood - Skin Skin Exam: Dry, Intact, Normal Color, Warm Assessment and Plan - Assessment and Plan (Free Text) Assessment: This is a 37yM with a pmhx of polysubstance abuse presenting with right foot pain and swelling. 1. Acute transaminitis ddx: ischemic from cocaine, abx drug induced liver injury , acute injury on Hep C, etoh and fatty liver 2. Hep C positive 3. Fatty liver 4. MSSA bacteremia and osteomyelitis 5. Hx of etoh and polysubstance abuse Plan: -Continue supportive care -Acute transaminitis maybe multifactorial, US with patent PV, hepatitis c positive but should not cause acute rise in LFTs, maybe 2/2 IV Nafcillin for 2 weeks but less likely, autoimmune serologies pending to r/o wilsons, hx of heavy etoh and fatty liver, pt with hx of cocaine abuse can cause intermittent vasospasm causing ischemia, less likely -Continue IV N-acyetl cysteine for possible DILI -UDS to r/o recent drug use -Monitor LFTs and INR daily, trending down -CT liver protocol neg for liver mass or cirrhosis -Abx per ID for infection -Outpt follow up for HepC txt -Avoid any hepatotoxic medications -Please call with any questions or concerns <Amanda,Taruna - Last Filed: 10/23/17 13:47> Objective - Vital Signs/Intake and Output Vital Signs (last 24 hours): Temp Pulse Resp BP Pulse Ox 98 F 76 18 121/63 99 10/22/17 14:00 10/22/17 14:00 10/22/17 14:00 10/22/17 14:00 10/22/17 14:00 Intake and Output: 10/23/17 10/23/17 06:59 18:59 Intake Total 240 Balance 240 - Medications Medications: Current Medications Docusate Sodium (Colace) 100 mg PO BID [facility] Last Admin: 10/23/17 10:51 Dose: Not Given Famotidine (Pepcid) 20 mg PO 1000,2200 [facility] Last Admin: 10/23/17 10:47 Dose: 20 mg Heparin Sodium (Porcine) (Heparin) 5,000 units SC Q12 [facility] PRN Reason: Protocol Last Admin: 10/23/17 10:51 Dose: Not Given Vancomycin HCl 1.5 gm/ Sodium (Chloride) 500 mls @ 167 mls/hr IVPB Q12H [facility] PRN Reason: Protocol Last Admin: 10/23/17 10:48 Dose: 167 mls/hr Ibuprofen (Motrin Tab) 600 mg PO Q6H PRN PRN Reason: Pain, moderate (4-7) Last Admin: 10/18/17 17:06 Dose: 600 mg Lactobacillus Acidophilus (Bacid Acidophilus) 1 cap PO BID [facility] Last Admin: 10/23/17 10:47 Dose: 1 cap Nicotine (Nicoderm Cq) 1 patch TD DAILY [facility] Last Admin: 10/23/17 10:51 Dose: Not Given Ondansetron HCl (Zofran Inj) 4 mg IVP Q4H PRN PRN Reason: Nausea/Vomiting Oxycodone HCl (Oxycodone Immediate Release Tab) 30 mg PO Q4H PRN PRN Reason: Pain, severe (8-10) Last Admin: 10/23/17 10:47 Dose: 30 mg - Labs Labs: 10/22/17 07:20 10/23/17 04:00 PT 13.0 SECONDS (9.4-12.5) H 10/23/17 04:00 INR 1.14 (0.93-1.08) H 10/23/17 04:00 Attending/Attestation - Attestation I have personally seen and examined this patient.: Yes I have fully participated in the care of the patient.: Yes I have reviewed all pertinent clinical information, including history, physical exam and plan: Yes Notes (Text): 10/23/17 13:37 This is a 37 year old M with a pmhx of polysubstance abuse presenting with right foot pain and swelling in setting of osteomyelitis. He has extensive history of alcohol and cocaine with recent diagnosis of HCV. His LFT was likely multifactorial. Avoid hepatotoxic medications. Continue osteo Rx as per primary team. HCV treatment as per primary team. CT liver negative Please call with any questions or concerns
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
[2017-10-24] MEDS: oxyCODONE 30 mg Immediate Release Tab PO PRN ×6 (02:23→22:16)
--- NOTE | 2017-10-24 06:19 | CP.PCM.PN ---
Subjective - Date & Time of Evaluation Date of Evaluation: 10/24/17 Time of Evaluation: 06:17 - Subjective Subjective: Attempted to insert heparin lock in right forearm with # 20 angiocath. While advancing catheter forward , he complained of pain, asked to remove catheter, became abusive. Did not allow further attempt. Objective - Vital Signs/Intake and Output Vital Signs (last 24 hours): Temp Pulse Resp BP Pulse Ox 97.2 F L 70 20 126/90 100 10/23/17 22:57 10/23/17 22:57 10/23/17 22:57 10/23/17 22:57 10/23/17 22:57 Intake and Output: 10/23/17 10/24/17 18:59 06:59 Intake Total 1080 Balance 1080 - Medications Medications: Current Medications Docusate Sodium (Colace) 100 mg PO BID [facility] Last Admin: 10/23/17 10:51 Dose: Not Given Famotidine (Pepcid) 20 mg PO 1000,2200 [facility] Last Admin: 10/24/17 03:18 Dose: Not Given Heparin Sodium (Porcine) (Heparin) 5,000 units SC Q12 [facility] PRN Reason: Protocol Last Admin: 10/24/17 03:17 Dose: Not Given Vancomycin HCl 1.5 gm/ Sodium (Chloride) 500 mls @ 167 mls/hr IVPB Q12H [facility] PRN Reason: Protocol Last Admin: 10/23/17 22:03 Dose: 167 mls/hr Ibuprofen (Motrin Tab) 600 mg PO Q6H PRN PRN Reason: Pain, moderate (4-7) Last Admin: 10/18/17 17:06 Dose: 600 mg Lactobacillus Acidophilus (Bacid Acidophilus) 1 cap PO BID [facility] Last Admin: 10/23/17 18:31 Dose: 1 cap Nicotine (Nicoderm Cq) 1 patch TD DAILY [facility] Last Admin: 10/23/17 10:51 Dose: Not Given Ondansetron HCl (Zofran Inj) 4 mg IVP Q4H PRN PRN Reason: Nausea/Vomiting Oxycodone HCl (Oxycodone Immediate Release Tab) 30 mg PO Q4H PRN PRN Reason: Pain, severe (8-10) Last Admin: 10/24/17 02:23 Dose: 30 mg - Labs Labs: 10/22/17 07:20 10/23/17 04:00 PT 13.0 SECONDS (9.4-12.5) H 10/23/17 04:00 INR 1.14 (0.93-1.08) H 10/23/17 04:00
[2017-10-24 07:34] LABS: INR 1.03 (0.93-1.08); PROTHROMBIN TIME 11.8 SECONDS (9.4-12.5)
[2017-10-24 07:59] LABS: ALBUMIN 3.7 g/dL (3.0-4.8); AST/SGOT 460 U/L (17-59); BLOOD UREA NITROGEN 15 mg/dL (7-21); CALCIUM 9.5 mg/dL (8.4-10.5); GFR AFRICAN-AMERICAN > 60; GFR NON-AFRICAN AMERICAN > 60
[2017-10-24 08:38] LABS: ALT/SGPT 1367 U/L (7-56)
[2017-10-24] MEDS: Lactobacillus Acidophilus 500 MU Cap PO SCH ×2 (10:10→18:20)
[2017-10-24] MEDS: Vancomycin 1.5 GM in Sodium Chloride 0.9% 500 ML IVPB SCH ×2 (10:12→22:17)
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
--- NOTE | 2017-10-24 11:43 | CP.PCM.PN ---
<Roxanna Iyer - Last Filed: 10/24/17 11:43> Subjective - Date & Time of Evaluation Date of Evaluation: 10/24/17 Time of Evaluation: 11:42 - Subjective Subjective: Podiatry Progress Note- Dr. Santiago/Dr. Murillo 37 year old male seen at bedside this morning with attending Dr. Santiago, 17 days s/p incision and drainage of right foot abscess with OM (DOS: 10/07/17). Patient is seen resting comfortably in bed at time of visit, in NAD, and AA0X3. Denies any overnight events. States he is not having any pain in the right foot at this time. Is eager to leave the hospital. Denies F/C/N/V/CP/SOB. Patient has no new pedal complaints at this time. Objective - Vital Signs/Intake and Output Vital Signs (last 24 hours): Temp Pulse Resp BP Pulse Ox 97.8 F 52 L 20 111/69 98 10/24/17 07:30 10/24/17 07:30 10/24/17 07:30 10/24/17 07:30 10/24/17 07:30 - Medications Medications: Current Medications Docusate Sodium (Colace) 100 mg PO BID [facility] Last Admin: 10/24/17 10:11 Dose: Not Given Famotidine (Pepcid) 20 mg PO 1000,2200 [facility] Last Admin: 10/24/17 10:11 Dose: Not Given Heparin Sodium (Porcine) (Heparin) 5,000 units SC Q12 [facility] PRN Reason: Protocol Last Admin: 10/24/17 10:11 Dose: Not Given Vancomycin HCl 1.5 gm/ Sodium (Chloride) 500 mls @ 167 mls/hr IVPB Q12H [facility] PRN Reason: Protocol Last Admin: 10/24/17 10:12 Dose: 167 mls/hr Ibuprofen (Motrin Tab) 600 mg PO Q6H PRN PRN Reason: Pain, moderate (4-7) Last Admin: 10/18/17 17:06 Dose: 600 mg Lactobacillus Acidophilus (Bacid Acidophilus) 1 cap PO BID [facility] Last Admin: 10/24/17 10:10 Dose: 1 cap Nicotine (Nicoderm Cq) 1 patch TD DAILY [facility] Last Admin: 10/24/17 10:11 Dose: Not Given Ondansetron HCl (Zofran Inj) 4 mg IVP Q4H PRN PRN Reason: Nausea/Vomiting Oxycodone HCl (Oxycodone Immediate Release Tab) 30 mg PO Q4H PRN PRN Reason: Pain, severe (8-10) Last Admin: 10/24/17 10:22 Dose: 30 mg - Labs Labs: 10/22/17 07:20 10/24/17 06:30 PT 11.8 SECONDS (9.4-12.5) 10/24/17 06:30 INR 1.03 (0.93-1.08) 10/24/17 06:30 - Constitutional Appears: Well, Non-toxic, No Acute Distress - Extremities Exam Additional comments: Right lower extremity focused examination: VASC: DP/PT pulses fully palpable 2/4. CFT < 3 seconds x 10 digits. Temperature runs warm to cool proximal to distal. No edema noted to RLE DERM: Linear surgical incision site at dorsomedial aspect of right foot measuring approx 3.3cm x 0.2cm x 0.1cm with signs of epithelialization noted to roof of incision. Wound bed exhibits granular tissue formation with no fibrotic tissue or necrosis. Wound borders are mildly hyperkeratotic with evidence of scab formation. No malodor, no active purulence, no active drainage but mild serous drainage noted to bandage. Minimal erythema to the surrounding surgical site ORTHO: Mild tenderness with palpation to surgical site NEURO: gross and protective sensation intact - Neurological Exam Neurological Exam: Alert, Awake, Oriented x3 - Psychiatric Exam Psychiatric exam: Normal Affect, Normal Mood Assessment and Plan - Assessment and Plan (Free Text) Assessment: 37 y/o male 17 days s/p I&D and debridement of all nonviable tissue of right foot abscess with cellulitis and OM (DOS: 10/07/17); cellulitis now resolved Plan: -Pt seen and evaluated with attending Dr. Santiago -Chart, lab, vitals reviewed- afebrile, NNL -Surgical site cleansed with saline solution and dressed with optifoam bandage -Patient may shower as long as he keeps the dressing clean, dry, and intact -OR wound cx (+) for growth of S. Aureus -Bone biopsy- acute OM -Continue IV Nafcillin for 4-6 weeks per ID No PICC line as outpatient since pt is active IV drug abuser -Continue WBAT in surgical shoe to right foot -Pain control per medical team -Podiatry will continue to follow pt while in house <Bird Santiago - Last Filed: 10/24/17 15:44> Objective - Vital Signs/Intake and Output Vital Signs (last 24 hours): Temp Pulse Resp BP Pulse Ox 97.8 F 52 L 20 111/69 98 10/24/17 07:30 10/24/17 07:30 10/24/17 07:30 10/24/17 07:30 10/24/17 07:30 Intake and Output: 10/24/17 10/24/17 06:59 18:59 Intake Total 1140 Balance 1140 - Medications Medications: Current Medications Docusate Sodium (Colace) 100 mg PO BID [facility] Last Admin: 10/24/17 10:11 Dose: Not Given Famotidine (Pepcid) 20 mg PO 1000,2200 [facility] Last Admin: 10/24/17 10:11 Dose: Not Given Heparin Sodium (Porcine) (Heparin) 5,000 units SC Q12 [facility] PRN Reason: Protocol Last Admin: 10/24/17 10:11 Dose: Not Given Vancomycin HCl 1.5 gm/ Sodium (Chloride) 500 mls @ 167 mls/hr IVPB Q12H [facility] PRN Reason: Protocol Last Admin: 10/24/17 10:12 Dose: 167 mls/hr Ibuprofen (Motrin Tab) 600 mg PO Q6H PRN PRN Reason: Pain, moderate (4-7) Last Admin: 10/18/17 17:06 Dose: 600 mg Lactobacillus Acidophilus (Bacid Acidophilus) 1 cap PO BID [facility] Last Admin: 10/24/17 10:10 Dose: 1 cap Nicotine (Nicoderm Cq) 1 patch TD DAILY [facility] Last Admin: 10/24/17 10:11 Dose: Not Given Ondansetron HCl (Zofran Inj) 4 mg IVP Q4H PRN PRN Reason: Nausea/Vomiting Oxycodone HCl (Oxycodone Immediate Release Tab) 30 mg PO Q4H PRN PRN Reason: Pain, severe (8-10) Last Admin: 10/24/17 14:29 Dose: 30 mg - Labs Labs: 10/22/17 07:20 10/24/17 06:30 PT 11.8 SECONDS (9.4-12.5) 10/24/17 06:30 INR 1.03 (0.93-1.08) 10/24/17 06:30 Attending/Attestation - Attestation I have personally seen and examined this patient.: Yes I have fully participated in the care of the patient.: Yes I have reviewed all pertinent clinical information, including history, physical exam and plan: Yes
[2017-10-25] MEDS: oxyCODONE 30 mg Immediate Release Tab PO PRN ×3 (02:05→10:08)
[2017-10-25 07:50] VITALS: BP 127/77; PULSE 62; RESP 19; TEMP 97.4; O2SAT 98
[2017-10-25] MEDS: Lactobacillus Acidophilus 500 MU Cap PO SCH (09:05)
[2017-10-25] MEDS: Vancomycin 1.5 GM in Sodium Chloride 0.9% 500 ML IVPB SCH (09:14)
[2017-10-25 09:45] LABS: PROTHROMBIN TIME 11.5 SECONDS (9.4-12.5)
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
[2017-10-25 11:20] LABS: ALB/GLOB RATIO 1.2 (1.1-1.8); ALBUMIN 4.4 g/dL (3.0-4.8); ALT/SGPT 1069 U/L (7-56); AST/SGOT 235 U/L (17-59); BLOOD UREA NITROGEN 19 mg/dL (7-21); GFR AFRICAN-AMERICAN > 60; GFR NON-AFRICAN AMERICAN > 60
--- NOTE | 2017-10-25 11:32 | CP.PCM.PN ---
<Roxanna Iyer - Last Filed: 10/25/17 11:30> Subjective - Date & Time of Evaluation Date of Evaluation: 10/25/17 Time of Evaluation: 11:30 - Subjective Subjective: Podiatry Progress Note- Dr. Santigao/Dr. Murillo 37 year old male seen at bedside this morning with attending Dr. Santiago, 18 days s/p incision and drainage of right foot abscess with OM (DOS: 10/07/17). Patient is seen resting comfortably in bed at time of visit, in NAD, and AA0X3. Denies any overnight events. He states he is having some pain that feels deep within the bone today. Says meds are helping to control it. Denies F/C/N/V/CP/ SOB. Patient has no new pedal complaints at this time. Objective - Vital Signs/Intake and Output Vital Signs (last 24 hours): Temp Pulse Resp BP Pulse Ox 97.4 F L 62 19 127/77 98 10/25/17 07:30 10/25/17 07:30 10/25/17 07:30 10/25/17 07:30 10/25/17 07:30 Intake and Output: 10/25/17 10/25/17 06:59 18:59 Intake Total 1760 Output Total 0 Balance 1760 - Medications Medications: Current Medications Docusate Sodium (Colace) 100 mg PO BID [facility] Last Admin: 10/25/17 09:06 Dose: 100 mg Famotidine (Pepcid) 20 mg PO 1000,2200 [facility] Last Admin: 10/25/17 09:14 Dose: 20 mg Heparin Sodium (Porcine) (Heparin) 5,000 units SC Q12 [facility] PRN Reason: Protocol Last Admin: 10/25/17 09:21 Dose: Not Given Vancomycin HCl 1.5 gm/ Sodium (Chloride) 500 mls @ 167 mls/hr IVPB Q12H [facility] PRN Reason: Protocol Last Admin: 10/25/17 09:14 Dose: 167 mls/hr Ibuprofen (Motrin Tab) 600 mg PO Q6H PRN PRN Reason: Pain, moderate (4-7) Last Admin: 10/18/17 17:06 Dose: 600 mg Lactobacillus Acidophilus (Bacid Acidophilus) 1 cap PO BID [facility] Last Admin: 10/25/17 09:05 Dose: 1 cap Nicotine (Nicoderm Cq) 1 patch TD DAILY [facility] Last Admin: 10/24/17 10:11 Dose: Not Given Ondansetron HCl (Zofran Inj) 4 mg IVP Q4H PRN PRN Reason: Nausea/Vomiting Oxycodone HCl (Oxycodone Immediate Release Tab) 30 mg PO Q4H PRN PRN Reason: Pain, severe (8-10) Last Admin: 10/25/17 10:08 Dose: 30 mg - Labs Labs: 10/22/17 07:20 10/25/17 06:30 PT 11.5 SECONDS (9.4-12.5) 10/25/17 06:30 INR 1.00 (0.93-1.08) 10/25/17 06:30 - Constitutional Appears: Well, Non-toxic, No Acute Distress - Extremities Exam Additional comments: Right lower extremity focused examination: VASC: DP/PT pulses fully palpable 2/4. CFT < 3 seconds x 10 digits. Temperature runs warm to cool proximal to distal. No edema noted to RLE DERM: Linear surgical incision site at dorsomedial aspect of right foot measuring approx 3.3cm x 0.2cm x 0.1cm with signs of epithelialization noted to roof of incision. Wound bed exhibits granular tissue formation with no fibrotic tissue or necrosis. Wound borders are mildly hyperkeratotic with evidence of scab formation. No malodor, no active purulence, no active drainage but mild serous drainage noted to bandage. Minimal erythema to the surrounding surgical site ORTHO: Mild tenderness with palpation to surgical site NEURO: gross and protective sensation intact - Neurological Exam Neurological Exam: Alert, Awake, Oriented x3 - Psychiatric Exam Psychiatric exam: Normal Affect, Normal Mood Assessment and Plan - Assessment and Plan (Free Text) Assessment: 37 y/o male 18 days s/p I&D and debridement of all nonviable tissue of right foot abscess with cellulitis and OM (DOS: 10/07/17); cellulitis now resolved Plan: -Pt seen and evaluated with attending Dr. Santiago -Chart, lab, vitals reviewed- afebrile, NNL -Surgical site cleansed with saline solution and dressed with optifoam bandage -Patient may shower as long as he keeps the dressing clean, dry, and intact -OR wound cx (+) for growth of S. Aureus -Bone biopsy- acute OM -Continue IV Nafcillin for 4-6 weeks per ID No PICC line as outpatient since pt is active IV drug abuser -Continue WBAT in surgical shoe to right foot -Pain control per medical team -Podiatry will continue to follow pt while in house <Bird Santiago - Last Filed: 10/25/17 13:03> Objective - Vital Signs/Intake and Output Vital Signs (last 24 hours): Temp Pulse Resp BP Pulse Ox 97.4 F L 62 19 127/77 98 10/25/17 07:30 10/25/17 07:30 10/25/17 07:30 10/25/17 07:30 10/25/17 07:30 Intake and Output: 10/25/17 10/25/17 06:59 18:59 Intake Total 1760 Output Total 0 Balance 1760 - Medications Medications: Current Medications Docusate Sodium (Colace) 100 mg PO BID [facility] Last Admin: 10/25/17 09:06 Dose: 100 mg Famotidine (Pepcid) 20 mg PO 1000,2200 [facility] Last Admin: 10/25/17 09:14 Dose: 20 mg Heparin Sodium (Porcine) (Heparin) 5,000 units SC Q12 [facility] PRN Reason: Protocol Last Admin: 10/25/17 09:21 Dose: Not Given Vancomycin HCl 1.5 gm/ Sodium (Chloride) 500 mls @ 167 mls/hr IVPB Q12H [facility] PRN Reason: Protocol Last Admin: 10/25/17 09:14 Dose: 167 mls/hr Ibuprofen (Motrin Tab) 600 mg PO Q6H PRN PRN Reason: Pain, moderate (4-7) Last Admin: 10/18/17 17:06 Dose: 600 mg Lactobacillus Acidophilus (Bacid Acidophilus) 1 cap PO BID [facility] Last Admin: 10/25/17 09:05 Dose: 1 cap Nicotine (Nicoderm Cq) 1 patch TD DAILY [facility] Last Admin: 10/24/17 10:11 Dose: Not Given Ondansetron HCl (Zofran Inj) 4 mg IVP Q4H PRN PRN Reason: Nausea/Vomiting Oxycodone HCl (Oxycodone Immediate Release Tab) 30 mg PO Q4H PRN PRN Reason: Pain, severe (8-10) Last Admin: 10/25/17 10:08 Dose: 30 mg - Labs Labs: 10/22/17 07:20 10/25/17 06:30 PT 11.5 SECONDS (9.4-12.5) 10/25/17 06:30 INR 1.00 (0.93-1.08) 10/25/17 06:30 Attending/Attestation - Attestation I have personally seen and examined this patient.: Yes I have fully participated in the care of the patient.: Yes I have reviewed all pertinent clinical information, including history, physical exam and plan: Yes
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
== END 2017-10-25 12:00 | disposition left against medical advice (07) | DRG 581 ==
LOC: ED 21:44 → ERH 10-05 00:07 → 5RNO 10-05 02:55
PROVIDERS: ADMIT Internal Medicine; ATTEND Internal Medicine
PROC: 0JBQ0ZZ Excision of Right Foot Subcutaneous Tissue and Fascia, Open Approach (ICD-10-PCS; 2017-10-07)
PROC: 0QBL3ZX Excision of Right Tarsal, Percutaneous Approach, Diagnostic (ICD-10-PCS; 2017-10-07)
PROC: 0J9Q0ZZ Drainage of Right Foot Subcutaneous Tissue and Fascia, Open Approach (ICD-10-PCS; principal; 2017-10-07 17:30)
DX: A41.01 Sepsis due to Methicillin susceptible Staphylococcus aureus (principal); M86.171 Other acute osteomyelitis, right ankle and foot; L03.115 Cellulitis of right lower limb; L02.611 Cutaneous abscess of right foot; K76.0 Fatty (change of) liver, not elsewhere classified; F11.20 Opioid dependence, uncomplicated; R16.1 Splenomegaly, not elsewhere classified; B18.2 Chronic viral hepatitis C; F14.10 Cocaine abuse, uncomplicated; G89.29 Other chronic pain; M54.9 Dorsalgia, unspecified; F41.9 Anxiety disorder, unspecified; F17.210 Nicotine dependence, cigarettes, uncomplicated; Z81.1 Family history of alcohol abuse and dependence; Z82.49 Family history of ischemic heart disease and other diseases of the circulatory system

== ENCOUNTER 2017-10-25 15:59 | Inpatient (IN) | payer MEDICAID ==
[2017-10-25 16:00] VITALS: BMI 22.6
--- NOTE | 2017-10-25 16:41 | ED PDOC ---
Arrival/HPI - General Chief Complaint: Lower Extremity Problem/Injury Time Seen by Provider: 10/25/17 16:08 Historian: Patient - History of Present Illness Narrative History of Present Illness (Text): 10/25/17 16:37 37 year old male, pmh including rt. foot osteomylitis which he was in the patient this morning, sign out Leaving Against Medical Advice (AMA) because he has to go home to take "care of something." Pt. is here at the ER, wish to be re-admitted again for continue of the medical care, no chest pain or shortness of breath, no night sweat, no change in vision, no other medical or psychological complaints. Past Medical History - Provider Review Nursing Documentation Reviewed: Yes - Infectious Disease Hx of Infectious Diseases: None - Cardiac Hx Cardiac Disorders: No - Pulmonary Hx Respiratory Disorders: No - Neurological Hx Neurological Disorder: No - HEENT Hx HEENT Disorder: No - Renal Hx Renal Disorder: No - Endocrine/Metabolic Hx Endocrine Disorders: No - Integumentary Hx Cellulitis: Yes (foot) - Musculoskeletal/Rheumatological Hx Back Pain: Yes - Gastrointestinal Hx Gastrointestinal Disorders: No - Genitourinary/Gynecological Hx Genitourinary Disorders: No - Psychiatric Hx Physical Abuse: No Hx Substance Use: No - Surgical History Hx Appendectomy: Yes - Anesthesia Hx Anesthesia Reactions: No Hx Malignant Hyperthermia: No Family/Social History - Physician Review Nursing Documentation Reviewed: Yes Family/Social History: Unknown Family HX Smoking Status: Heavy Smoker > 10 Cigarettes Daily Hx Alcohol Use: Yes Frequency of alcohol use: Socially Hx Substance Use: No Allergies/Home Meds Allergies/Adverse Reactions: Allergies cefazolin [From [facility]] Allergy (Mild, Verified 10/25/17 16:30) ITCHING Home Medications: Home Meds Medication Instructions Recorded Confirmed oxyCODONE [oxyCODONE Immediate 30 mg PO Q4 PRN 10/07/17 10/25/17 Release Tab] Review of Systems - Review of Systems Constitutional: absent: Fatigue, Fevers Eyes: absent: Vision Changes ENT: absent: Hearing Changes Respiratory: absent: SOB Cardiovascular: absent: Chest Pain Gastrointestinal: absent: Abdominal Pain, Nausea, Vomiting Musculoskeletal: absent: Arthralgias Skin: absent: Rash, Pruritis Neurological: absent: Headache Hemo/Lymphatic: absent: Adenopathy Psychiatric: absent: Anxiety, Depression, Suicidal Ideation Physical Exam Vital Signs Reviewed: Yes Vital Signs Temp Pulse Resp BP Pulse Ox 10/25/17 16:27 98.3 F 66 18 142/82 98 Temperature: Afebrile Blood Pressure: Normal Pulse: Regular Respiratory Rate: Normal Appearance: Positive for: Well-Appearing, Non-Toxic, Comfortable Pain Distress: Mild Mental Status: Positive for: Alert and Oriented X 3 - Systems Exam Head: Present: Atraumatic, Normocephalic Pupils: Present: PERRL Extroacular Muscles: Present: EOMI Conjunctiva: Present: Normal Mouth: Present: Moist Mucous Membranes Neck: Present: Normal Range of Motion Respiratory/Chest: Present: Clear to Auscultation, Good Air Exchange. No: Respiratory Distress, Accessory Muscle Use Cardiovascular: Present: Regular Rate and Rhythm, Normal S1, S2. No: Murmurs Abdomen: Present: Normal Bowel Sounds. No: Tenderness, Distention, Peritoneal Signs Back: Present: Normal Inspection Upper Extremity: Present: Normal Inspection. No: Cyanosis, Edema Lower Extremity: Present: Normal Inspection, Other (Rt. foot: visible dressing noted on the dorsum food with dressing, no streaking or ulcerated outside of the dressing, capillary refill< 2 seconds, neurovascular intact. ). No: Edema Neurological: Present: GCS=15, CN II-XII Intact, Speech Normal Skin: Present: Warm, Dry, Normal Color. No: Rashes Psychiatric: Present: Alert, Oriented x 3, Normal Insight, Normal Concentration Medical Decision Making ED Course and Treatment: 10/25/17 16:44 -Urine drug screen -will paged the hospitalist against for readmission for osteomylitis. 10/25/17 16:48 -I spoke to the hospitalist Dr. Jay, discussed about the case/situation, will follow up on the drug screen and agreed to be admitted to her service. -I discussed with Dr. Peñaloza about the case, he agreed on the admission and treatment plan which he will put in the admission order. 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 Disposition/Present on Arrival - Present on Arrival Any Indicators Present on Arrival: No History of DVT/PE: No History of Uncontrolled Diabetes: No Urinary Catheter: No History of Decub. Ulcer: No History Surgical Site Infection Following: None - Disposition Have Diagnosis and Disposition been Completed?: Yes Diagnosis: Osteomyelitis Disposition: HOSPITALIZED Disposition Time: 16:45 Patient Plan: Admission Patient Problems: Current Active Problems Problem Status Onset Osteomyelitis Acute Condition: STABLE
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
[2017-10-25] MEDS ORDERED: oxyCODONE 30 mg Immediate Release Tab PO PRN (17:29)
[2017-10-25] MEDS: Vancomycin 1.5 GM in Sodium Chloride 0.9% 500 ML IVPB SCH (18:52)
[2017-10-25] MEDS: Lactobacillus Acidophilus 500 MU Cap PO SCH (18:54)
[2017-10-25 20:30] LABS: BARBITURATES, UR NEGATIVE (NEGATIVE); BENZODIAZEPINES, UR NEGATIVE (NEGATIVE); OPIATES, UR POSITIVE (NEGATIVE); PHENCYCLIDINE, UR NEGATIVE (NEGATIVE)
[2017-10-26] MEDS: oxyCODONE 30 mg Immediate Release Tab PO PRN ×5 (05:51→22:59)
[2017-10-26] MEDS: Vancomycin 1.5 GM in Sodium Chloride 0.9% 500 ML IVPB SCH ×2 (06:49→18:46)
[2017-10-26 07:34] LABS: BASO # 0.02 K/mm3 (0.0-2.0); BASO % 0.3 % (0.0-3.0); EOS # 0.1 (0.0-0.7); EOS % 1.3 % (1.5-5.0); GRAN # 4.09 (1.4-6.5); GRAN % 53.8 % (50.0-68.0); HEMOGLOBIN 11.9 g/dL (14.0-18.0); LYMPH # 2.6 (1.2-3.4); LYMPH % 34.7 % (22.0-35.0); MEAN CELL VOLUME 90.3 fl (80.0-105.0); MEAN CORPUSCULAR HEMOGLOBIN 29.5 pg (25.0-35.0); MEAN CORPUSCULAR HGB CONC 32.7 g/dl (31.0-37.0); MEAN PLATELET VOLUME 11.9 fl (7.0-11.0); MONO # 0.8 (0.1-0.6); MONO % 9.9 % (1.0-6.0); RBC 4.03 10^6/uL (3.5-6.1); RED CELL DISTRIBUTION WIDTH 13.8 % (11.5-14.5); WHITE BLOOD COUNT 7.6 10^3/ul (4.5-11.0)
[2017-10-26 07:49] LABS: INR 1.03 (0.93-1.08); PARTIAL THROMBOPLASTIN TIME 37.5 Seconds (25.1-36.5); PROTHROMBIN TIME 11.8 SECONDS (9.4-12.5)
[2017-10-26 07:56] LABS: ALB/GLOB RATIO 1.1 (1.1-1.8); ALBUMIN 4.6 g/dL (3.0-4.8); ALT/SGPT 819 U/L (7-56); AST/SGOT 139 U/L (17-59); BLOOD UREA NITROGEN 22 mg/dL (7-21); CALCIUM 10.3 mg/dL (8.4-10.5); GFR AFRICAN-AMERICAN > 60; GFR NON-AFRICAN AMERICAN > 60
--- NOTE | 2017-10-26 09:55 | CP.PCM.PN ---
<Sidney Browne - Last Filed: 10/26/17 09:52> Subjective - Date & Time of Evaluation Date of Evaluation: 10/26/17 Time of Evaluation: 09:52 - Subjective Subjective: Podiatry Progress Note- Dr. Santiago/Dr. Murillo 37 year old male seen at bedside this morning with attending Dr. Santiago, 19 days s/p incision and drainage of right foot abscess with OM (DOS: 10/07/17). Patient is seen resting comfortably in bed at time of visit, in NAD, and AA0X3. Denies any overnight events. Reports that the dressing fell off overnight so he applied a new one. Denies of any pain to the incision site today. Denies F/C/N/V /CP/SOB. Patient has no new pedal complaints at this time. Objective - Vital Signs/Intake and Output Vital Signs (last 24 hours): Temp Pulse Resp BP Pulse Ox 98.4 F 118 H 21 150/110 H 93 L 10/26/17 09:41 10/26/17 09:41 10/26/17 09:41 10/26/17 09:41 10/26/17 09:41 Intake and Output: 10/26/17 10/26/17 06:59 18:59 Intake Total 660 Balance 660 - Medications Medications: Current Medications Docusate Sodium (Colace) 100 mg PO BID [facility] Last Admin: 10/25/17 18:54 Dose: Not Given Famotidine (Pepcid) 20 mg PO 1000,2200 [facility] Last Admin: 10/25/17 21:39 Dose: 20 mg Heparin Sodium (Porcine) (Heparin) 5,000 units SC Q12 [facility]ENT[facility] PRN Reason: Protocol Last Admin: 10/25/17 21:42 Dose: Not Given Vancomycin HCl 1.5 gm/ Sodium (Chloride) 500 mls @ 167 mls/hr IVPB Q12H QUENTIN PRN Reason: Protocol Last Admin: 10/26/17 06:49 Dose: 167 mls/hr Ibuprofen (Motrin Tab) 600 mg PO Q6H PRN PRN Reason: Pain, moderate (4-7) Lactobacillus Acidophilus (Bacid Acidophilus) 1 cap PO BID [facility] Last Admin: 10/25/17 18:54 Dose: Not Given Nicotine (Nicoderm Cq) 1 patch TD DAILY [facility] Last Admin: 10/25/17 18:53 Dose: Not Given Oxycodone HCl (Oxycodone Immediate Release Tab) 30 mg PO Q4 PRN PRN Reason: Pain, moderate (4-7) Last Admin: 10/26/17 05:51 Dose: 30 mg - Labs Labs: 10/26/17 06:30 10/26/17 06:30 PT 11.8 SECONDS (9.4-12.5) 10/26/17 06:30 INR 1.03 (0.93-1.08) 10/26/17 06:30 APTT 37.5 Seconds (25.1-36.5) H 10/26/17 06:30 - Constitutional Appears: Well, Non-toxic, No Acute Distress - Head Exam Head Exam: ATRAUMATIC - Extremities Exam Additional comments: Right lower extremity focused examination: VASC: DP/PT pulses fully palpable 2/4. CFT < 3 seconds x 10 digits. Temperature runs warm to cool proximal to distal. No edema noted to RLE DERM: Linear surgical incision site at dorsomedial aspect of right foot measuring approx 3.3cm x 0.2cm x 0.1cm with signs of epithelialization noted to roof of incision - appears almost healed at this time. Wound bed exhibits granular tissue formation with no fibrotic tissue or necrosis. Wound borders are mildly hyperkeratotic with evidence of scab formation. No malodor, no active purulence, no active drainage but mild serous drainage noted to bandage. Minimal erythema to the surrounding surgical site ORTHO: Mild tenderness with palpation to surgical site NEURO: gross and protective sensation intact - Neurological Exam Neurological Exam: Alert, Awake, Oriented x3 - Psychiatric Exam Psychiatric exam: Normal Affect, Normal Mood Assessment and Plan - Assessment and Plan (Free Text) Assessment: 37 y/o male 19 days s/p I&D and debridement of all nonviable tissue of right foot abscess with cellulitis and OM (DOS: 10/07/17); cellulitis now resolved Plan: -Pt seen and evaluated with attending Dr. Santiago -Chart, lab, vitals reviewed- afebrile, no leukocytosis -Surgical site cleansed with saline solution and dressed with optifoam bandage -Patient may shower as long as he keeps the dressing clean, dry, and intact -OR wound cx (+) for growth of S. Aureus -Bone biopsy- acute OM -Continue IV Nafcillin for 4-6 weeks per ID No PICC line as outpatient since pt is active IV drug abuser -Continue WBAT in surgical shoe to right foot -Pain control per medical team -Podiatry will continue to follow pt while in house <EricleaBird noe - Last Filed: 10/28/17 10:22> Objective - Vital Signs/Intake and Output Vital Signs (last 24 hours): Temp Pulse Resp BP Pulse Ox 97.8 F 89 20 152/88 H 100 10/26/17 14:00 10/26/17 14:00 10/26/17 14:00 10/26/17 14:00 10/26/17 14:00 Intake and Output: 10/28/17 10/28/17 06:59 18:59 Intake Total 780 Output Total 1 Balance 779 - Medications Medications: Current Medications Famotidine (Pepcid) 20 mg PO 1000,2200 [facility] Last Admin: 10/27/17 21:08 Dose: 20 mg Haloperidol (Haldol) 3 mg PO Q6 PRN; Protocol PRN Reason: Agitation Heparin Sodium (Porcine) (Heparin) 5,000 units SC Q12 QUENTIN PRN Reason: Protocol Last Admin: 10/27/17 21:08 Dose: Not Given Vancomycin HCl 1.5 gm/ Sodium (Chloride) 500 mls @ 167 mls/hr IVPB Q12H QUENTIN PRN Reason: Protocol Last Admin: 10/28/17 05:44 Dose: 167 mls/hr Ibuprofen (Motrin Tab) 600 mg PO Q6H PRN PRN Reason: Pain, moderate (4-7) Lactobacillus Acidophilus (Bacid Acidophilus) 1 cap PO BID [facility] Last Admin: 10/27/17 17:01 Dose: 1 cap Lorazepam (Ativan) 1 mg PO Q6 PRN; Protocol PRN Reason: Agitation Nicotine (Nicoderm Cq) 1 patch TD DAILY [facility] Last Admin: 10/27/17 11:12 Dose: Not Given Oxycodone HCl (Oxycodone Immediate Release Tab) 30 mg PO Q4 PRN PRN Reason: Pain, moderate (4-7) Last Admin: 10/28/17 05:44 Dose: 30 mg - Labs Labs: 10/26/17 06:30 10/26/17 06:30 PT 11.8 SECONDS (9.4-12.5) 10/26/17 06:30 INR 1.03 (0.93-1.08) 10/26/17 06:30 APTT 37.5 Seconds (25.1-36.5) H 10/26/17 06:30 Attending/Attestation - Attestation I have personally seen and examined this patient.: Yes I have fully participated in the care of the patient.: Yes I have reviewed all pertinent clinical information, including history, physical exam and plan: Yes
[2017-10-26] MEDS: Lactobacillus Acidophilus 500 MU Cap PO SCH ×2 (10:33→18:48)
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
--- NOTE | 2017-10-26 23:18 | CON ---
DATE: 10/26/2017 LOCATION: The patient was seen earlier today in room 565, bed 2. CHIEF COMPLAINT: Weakness times several days. HISTORY OF PRESENT ILLNESS: This is a 37-year-old male who was recently in the hospital, signed out against medical advice. He wanted to go home, take care of something and then came back. He signed out against medical advice. He is in the hospital. The patient is an active intravenous drug abuser, found to have Staph aureus bacteremia with endocarditis, Staph aureus osteomyelitis. Because of his active intravenous drug abuse, he is not given a PICC line to be discharged on. The patient has sensitive Staph aureus, and had LFT elevation and for that reason nafcillin was discontinued, was on vancomycin. The patient also found to have hepatitis C. Now returns to complete therapy. It is certain that the patient also had a right foot osteomyelitis. PAST MEDICAL HISTORY: Significant for recent finding of hepatitis C, intravenous drug abuse, alcohol abuse, tobacco use. PAST SURGICAL HISTORY: Significant for appendectomy. ALLERGIES: PATIENT IS ALLERGIC TO CEFAZOLIN. PHYSICAL EXAMINATION: VITAL SIGNS: The patient is in bed with a temperature of 98, blood pressure is 170/100, respiratory rate of 21, heart rate of 108, 93% saturation. HEENT: Unremarkable. NECK: Supple. LUNGS: Have decreased breath sounds. HEART: Normal S1, S2. ABDOMEN: Soft, nontender. LABORATORY DATA: Laboratory examination reveals a white count of 7.6, hemoglobin 11, platelets of 221. Chemistries reveal a BUN of 22, creatinine of 1.0. LFTs are elevated. Alk phos is elevated. The patient's creatinine remained unchanged. Review of the sed rate reveals the patient has sed rate of 23, down 10, that was on the 9th. On 10/05/2017, the patient had a sed rate of 23. C-reactive protein is also reported to be greater than 16, which was also elevated and greater than 15. Urinalysis is noted. Microbiology revels the blood cultures are positive from 10/04/2017 with Staph aureus, which is pansensitive. Repeat blood culture in 10/07/2017 is negative. ASSESSMENT AND PLAN: This is a 37-year-old male with hepatitis C, intravenous drug user, who was admitted with sepsis with sensitive Staph aureus bacteremia and endocarditis, right foot osteomyelitis. Was treated with vancomycin and ordered a sed rate and C-reactive protein. Cultures were negative on 10/07/2017. The patient's toxicology from yesterday showed to be positive for urine opioid screen. Dr. Larsen's note from today is reviewed. Today is day #19 of 28 days of antibiotics. We will follow closely with you sed rate and C-reactive protein. We will follow. Mayur Coleman MD
--- NOTE | 2017-10-27 06:42 | CP.PCM.PN ---
Subjective - Date & Time of Evaluation Date of Evaluation: 10/27/17 Time of Evaluation: 06:42 - Subjective Subjective: # 22 angiocath was inserted in right forearm. Objective - Vital Signs/Intake and Output Vital Signs (last 24 hours): Temp Pulse Resp BP Pulse Ox 97.8 F 89 20 152/88 H 100 10/26/17 14:00 10/26/17 14:00 10/26/17 14:00 10/26/17 14:00 10/26/17 14:00 Intake and Output: 10/26/17 10/27/17 18:59 06:59 Intake Total 1020 240 Balance 1020 240 - Medications Medications: Current Medications Famotidine (Pepcid) 20 mg PO 1000,2200 [facility] Last Admin: 10/26/17 21:23 Dose: 20 mg Heparin Sodium (Porcine) (Heparin) 5,000 units SC Q12 [facility] PRN Reason: Protocol Last Admin: 10/26/17 21:25 Dose: Not Given Vancomycin HCl 1.5 gm/ Sodium (Chloride) 500 mls @ 167 mls/hr IVPB Q12H [facility] PRN Reason: Protocol Last Admin: 10/26/17 18:46 Dose: 167 mls/hr Ibuprofen (Motrin Tab) 600 mg PO Q6H PRN PRN Reason: Pain, moderate (4-7) Lactobacillus Acidophilus (Bacid Acidophilus) 1 cap PO BID [facility] Last Admin: 10/26/17 18:48 Dose: 1 cap Nicotine (Nicoderm Cq) 1 patch TD DAILY [facility] Last Admin: 10/26/17 10:33 Dose: Not Given Oxycodone HCl (Oxycodone Immediate Release Tab) 30 mg PO Q4 PRN PRN Reason: Pain, moderate (4-7) Last Admin: 10/26/17 22:59 Dose: 30 mg - Labs Labs: 10/26/17 06:30 10/26/17 06:30 PT 11.8 SECONDS (9.4-12.5) 10/26/17 06:30 INR 1.03 (0.93-1.08) 10/26/17 06:30 APTT 37.5 Seconds (25.1-36.5) H 10/26/17 06:30
[2017-10-27] MEDS: Vancomycin 1.5 GM in Sodium Chloride 0.9% 500 ML IVPB SCH ×2 (06:43→16:57)
[2017-10-27] MEDS: Lactobacillus Acidophilus 500 MU Cap PO SCH ×2 (11:12→17:01)
[2017-10-27] MEDS: oxyCODONE 30 mg Immediate Release Tab PO PRN ×3 (11:38→21:07)
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
--- NOTE | 2017-10-27 13:12 | CP.PCM.PN ---
Subjective - Date & Time of Evaluation Date of Evaluation: 10/27/17 Time of Evaluation: 13:10 - Subjective Subjective: Podiatry Progress Note- Dr. Santiago/Dr. Murillo 37 year old male seen at bedside this morning 20 days s/p incision and drainage of right foot abscess with OM (DOS: 10/07/17). Patient is seen resting comfortably in bed at time of visit, in NAD, and [id number]. Denies any overnight events. Reports that he did not sleep well last night. Denies of any pain to the incision site today. Denies F/C/N/V/CP/SOB. Patient has no new pedal complaints at this time. Objective - Vital Signs/Intake and Output Vital Signs (last 24 hours): Temp Pulse Resp BP Pulse Ox 97.8 F 89 20 152/88 H 100 10/26/17 14:00 10/26/17 14:00 10/26/17 14:00 10/26/17 14:00 10/26/17 14:00 Intake and Output: 10/27/17 10/27/17 06:59 18:59 Intake Total 240 Balance 240 - Medications Medications: Current Medications Famotidine (Pepcid) 20 mg PO 1000,2200 [facility] Last Admin: 10/27/17 11:13 Dose: Not Given Haloperidol (Haldol) 3 mg PO Q6 PRN; Protocol PRN Reason: Agitation Heparin Sodium (Porcine) (Heparin) 5,000 units SC Q12 [facility] PRN Reason: Protocol Last Admin: 10/27/17 11:12 Dose: Not Given Vancomycin HCl 1.5 gm/ Sodium (Chloride) 500 mls @ 167 mls/hr IVPB Q12H [facility] PRN Reason: Protocol Last Admin: 10/27/17 06:43 Dose: 167 mls/hr Ibuprofen (Motrin Tab) 600 mg PO Q6H PRN PRN Reason: Pain, moderate (4-7) Lactobacillus Acidophilus (Bacid Acidophilus) 1 cap PO BID [facility] Last Admin: 10/27/17 11:12 Dose: Not Given Lorazepam (Ativan) 1 mg PO Q6 PRN; Protocol PRN Reason: Agitation Nicotine (Nicoderm Cq) 1 patch TD DAILY [facility] Last Admin: 10/27/17 11:12 Dose: Not Given Oxycodone HCl (Oxycodone Immediate Release Tab) 30 mg PO Q4 PRN PRN Reason: Pain, moderate (4-7) Last Admin: 10/27/17 11:38 Dose: 30 mg - Labs Labs: 10/26/17 06:30 10/26/17 06:30 PT 11.8 SECONDS (9.4-12.5) 10/26/17 06:30 INR 1.03 (0.93-1.08) 10/26/17 06:30 APTT 37.5 Seconds (25.1-36.5) H 10/26/17 06:30 - Constitutional Appears: Well, Non-toxic, No Acute Distress - Extremities Exam Additional comments: Right lower extremity focused examination: VASC: DP/PT pulses fully palpable 2/4. CFT < 3 seconds x 10 digits. Temperature runs warm to cool proximal to distal. No edema noted to RLE DERM: Linear surgical incision site at dorsomedial aspect of right foot measuring approx 3.3cm x 0.2cm x 0.1cm with signs of epithelialization noted to roof of incision - appears almost healed at this time. Wound bed exhibits granular tissue formation with no fibrotic tissue or necrosis. Wound borders are mildly hyperkeratotic with evidence of scab formation. No malodor, no active purulence, no active drainage but mild serous drainage noted to bandage. Minimal erythema to the surrounding surgical site ORTHO: Mild tenderness with palpation to surgical site NEURO: gross and protective sensation intact - Neurological Exam Neurological Exam: Alert, Awake, Oriented x3 - Psychiatric Exam Psychiatric exam: Normal Affect, Normal Mood Assessment and Plan - Assessment and Plan (Free Text) Assessment: 37 y/o male 20 days s/p I&D and debridement of all nonviable tissue of right foot abscess with cellulitis and OM (DOS: 10/07/17); cellulitis now resolved Plan: -Pt seen and evaluated -Discussed plan with attending Dr. Murillo -Chart, lab, vitals reviewed- afebrile, no leukocytosis -Surgical site cleansed with saline solution and dressed with optifoam bandage -Patient may shower as long as he keeps the dressing clean, dry, and intact -OR wound cx (+) for growth of S. Aureus -Bone biopsy- acute OM -Continue IV Nafcillin for 4-6 weeks per ID No PICC line as outpatient since pt is active IV drug abuser -Continue WBAT in surgical shoe to right foot -Pain control per medical team -Podiatry will continue to follow pt while in house
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
--- NOTE | 2017-10-27 23:59 | PN ---
DATE: SUBJECTIVE: The patient is seen in bed, in no acute distress, nontoxic. No fevers. The patient was seen earlier this morning. PHYSICAL EXAMINATION VITAL SIGNS: Temperature is 98, blood pressure is 150/80, respiratory rate 16. HEENT: Unremarkable. NECK: Supple. LUNGS: Decreased breath sounds. HEART: Normal S1 and S2. ABDOMEN: Soft LABORATORY DATA: As noted and reviewed. The blood cultures are reported to be negative. ASSESSMENT AND PLAN: This is a 37-year-old male with hepatitis C, intravenous drug abuse, admitted with sepsis with sensitive Staphylococcus aureus bacteremia, endocarditis, right foot osteomyelitis, on day #20 of 28 days. Mayur Coleman MD
[2017-10-28] MEDS: Vancomycin 1.5 GM in Sodium Chloride 0.9% 500 ML IVPB SCH ×2 (05:44→18:31)
[2017-10-28] MEDS: oxyCODONE 30 mg Immediate Release Tab PO PRN ×5 (05:44→22:39)
--- NOTE | 2017-10-28 08:06 | CP.PCM.PN ---
<Roxanna Iyer - Last Filed: 10/28/17 08:03> Subjective - Date & Time of Evaluation Date of Evaluation: 10/28/17 Time of Evaluation: 08:03 - Subjective Subjective: Podiatry Progress Note- Dr. Santiago 37 year old male seen at bedside this morning 3 weeks s/p incision and drainage of right foot abscess with OM (DOS: 10/07/17). Patient sleeping at time of visit , in NAD, and [id number]. Denies any overnight events. States he is still having the deep pain that he feels within his bone. Says medications control it well but it occasionally hurts a lot. Denies F/C/N/V/CP/SOB. Patient has no new pedal complaints at this time. Objective - Vital Signs/Intake and Output Vital Signs (last 24 hours): Temp Pulse Resp BP Pulse Ox 97.8 F 89 20 152/88 H 100 10/26/17 14:00 10/26/17 14:00 10/26/17 14:00 10/26/17 14:00 10/26/17 14:00 Intake and Output: 10/28/17 10/28/17 06:59 18:59 Intake Total 780 Output Total 1 Balance 779 - Medications Medications: Current Medications Famotidine (Pepcid) 20 mg PO 1000,2200 [facility] Last Admin: 10/27/17 21:08 Dose: 20 mg Haloperidol (Haldol) 3 mg PO Q6 PRN; Protocol PRN Reason: Agitation Heparin Sodium (Porcine) (Heparin) 5,000 units SC Q12 QUENTIN PRN Reason: Protocol Last Admin: 10/27/17 21:08 Dose: Not Given Vancomycin HCl 1.5 gm/ Sodium (Chloride) 500 mls @ 167 mls/hr IVPB Q12H QUENTIN PRN Reason: Protocol Last Admin: 10/28/17 05:44 Dose: 167 mls/hr Ibuprofen (Motrin Tab) 600 mg PO Q6H PRN PRN Reason: Pain, moderate (4-7) Lactobacillus Acidophilus (Bacid Acidophilus) 1 cap PO BID [facility] Last Admin: 10/27/17 17:01 Dose: 1 cap Lorazepam (Ativan) 1 mg PO Q6 PRN; Protocol PRN Reason: Agitation Nicotine (Nicoderm Cq) 1 patch TD DAILY [facility] Last Admin: 10/27/17 11:12 Dose: Not Given Oxycodone HCl (Oxycodone Immediate Release Tab) 30 mg PO Q4 PRN PRN Reason: Pain, moderate (4-7) Last Admin: 10/28/17 05:44 Dose: 30 mg - Labs Labs: 10/26/17 06:30 10/26/17 06:30 PT 11.8 SECONDS (9.4-12.5) 10/26/17 06:30 INR 1.03 (0.93-1.08) 10/26/17 06:30 APTT 37.5 Seconds (25.1-36.5) H 10/26/17 06:30 - Constitutional Appears: Well, Non-toxic, No Acute Distress - Extremities Exam Additional comments: Right lower extremity focused examination: VASC: DP/PT pulses fully palpable 2/4. CFT < 3 seconds x 10 digits. Temperature runs warm to cool proximal to distal. No edema noted to RLE DERM: Linear surgical incision site at dorsomedial aspect of right foot measuring approx 3.1cm x 0.2cm x 0.1cm with signs of epithelialization noted to roof of incision - almost fully healed at this time. Wound bed exhibits granular tissue formation with no fibrotic tissue or necrosis. Wound borders are mildly hyperkeratotic with evidence of scab formation. No malodor, no active purulence, no drainage noted on bandage or application of pressure to incision site. Minimal erythema to the surrounding surgical site ORTHO: Mild tenderness with palpation to surgical site NEURO: gross and protective sensation intact - Neurological Exam Neurological Exam: Alert, Awake, Oriented x3 - Psychiatric Exam Psychiatric exam: Normal Affect, Normal Mood Assessment and Plan - Assessment and Plan (Free Text) Assessment: 37 y/o male 3 weeks s/p I&D and debridement of all nonviable tissue of right foot abscess with cellulitis and OM (DOS: 10/07/17); cellulitis now resolved Plan: -Pt seen and evaluated -Discussed plan with attending Dr. Santiago -Chart, lab, vitals reviewed- afebrile, WBC 7.6 -Surgical site cleansed with saline solution and dressed with small optifoam bandage -Patient may shower as long as he keeps the dressing clean, dry, and intact -OR wound cx (+) for growth of S. Aureus -Bone biopsy- acute OM -Continue IV Nafcillin for 4-6 weeks per ID No PICC line as outpatient since pt is active IV drug abuser -Continue WBAT in surgical shoe to right foot -Pain control per medical team -Podiatry will continue to follow pt while in house <EricleaBird noe - Last Filed: 10/28/17 10:26> Objective - Vital Signs/Intake and Output Vital Signs (last 24 hours): Temp Pulse Resp BP Pulse Ox 97.8 F 89 20 152/88 H 100 10/26/17 14:00 10/26/17 14:00 10/26/17 14:00 10/26/17 14:00 10/26/17 14:00 Intake and Output: 10/28/17 10/28/17 06:59 18:59 Intake Total 780 Output Total 1 Balance 779 - Medications Medications: Current Medications Famotidine (Pepcid) 20 mg PO 1000,2200 [facility] Last Admin: 10/27/17 21:08 Dose: 20 mg Haloperidol (Haldol) 3 mg PO Q6 PRN; Protocol PRN Reason: Agitation Heparin Sodium (Porcine) (Heparin) 5,000 units SC Q12 QUENTIN PRN Reason: Protocol Last Admin: 10/27/17 21:08 Dose: Not Given Vancomycin HCl 1.5 gm/ Sodium (Chloride) 500 mls @ 167 mls/hr IVPB Q12H QUENTIN PRN Reason: Protocol Last Admin: 10/28/17 05:44 Dose: 167 mls/hr Ibuprofen (Motrin Tab) 600 mg PO Q6H PRN PRN Reason: Pain, moderate (4-7) Lactobacillus Acidophilus (Bacid Acidophilus) 1 cap PO BID [facility] Last Admin: 10/27/17 17:01 Dose: 1 cap Lorazepam (Ativan) 1 mg PO Q6 PRN; Protocol PRN Reason: Agitation Nicotine (Nicoderm Cq) 1 patch TD DAILY [facility] Last Admin: 10/27/17 11:12 Dose: Not Given Oxycodone HCl (Oxycodone Immediate Release Tab) 30 mg PO Q4 PRN PRN Reason: Pain, moderate (4-7) Last Admin: 10/28/17 05:44 Dose: 30 mg - Labs Labs: 10/26/17 06:30 10/26/17 06:30 PT 11.8 SECONDS (9.4-12.5) 10/26/17 06:30 INR 1.03 (0.93-1.08) 10/26/17 06:30 APTT 37.5 Seconds (25.1-36.5) H 10/26/17 06:30 Attending/Attestation - Attestation I have personally seen and examined this patient.: Yes I have fully participated in the care of the patient.: Yes I have reviewed all pertinent clinical information, including history, physical exam and plan: Yes
[2017-10-28] MEDS: Lactobacillus Acidophilus 500 MU Cap PO SCH ×2 (10:32→18:32)
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
--- NOTE | 2017-10-28 17:52 | CP.PCM.PN ---
Subjective - Date & Time of Evaluation Date of Evaluation: 10/28/17 Time of Evaluation: 11:35 - Subjective Subjective: Still with pain in the right foot but less, no nausea, no fevers, no diarrhea. Objective - Vital Signs/Intake and Output Vital Signs (last 24 hours): Temp Pulse Resp BP Pulse Ox 97.8 F 89 20 152/88 H 100 10/26/17 14:00 10/26/17 14:00 10/26/17 14:00 10/26/17 14:00 10/26/17 14:00 Intake and Output: 10/28/17 10/28/17 06:59 18:59 Intake Total 780 Output Total 1 Balance 779 - Medications Medications: Current Medications Famotidine (Pepcid) 20 mg PO 1000,2200 [facility] Last Admin: 10/27/17 21:08 Dose: 20 mg Haloperidol (Haldol) 3 mg PO Q6 PRN; Protocol PRN Reason: Agitation Heparin Sodium (Porcine) (Heparin) 5,000 units SC Q12 [facility] PRN Reason: Protocol Last Admin: 10/27/17 21:08 Dose: Not Given Vancomycin HCl 1.5 gm/ Sodium (Chloride) 500 mls @ 167 mls/hr IVPB Q12H [facility] PRN Reason: Protocol Last Admin: 10/28/17 05:44 Dose: 167 mls/hr Ibuprofen (Motrin Tab) 600 mg PO Q6H PRN PRN Reason: Pain, moderate (4-7) Lactobacillus Acidophilus (Bacid Acidophilus) 1 cap PO BID [facility] Last Admin: 10/27/17 17:01 Dose: 1 cap Lorazepam (Ativan) 1 mg PO Q6 PRN; Protocol PRN Reason: Agitation Nicotine (Nicoderm Cq) 1 patch TD DAILY [facility] Last Admin: 10/27/17 11:12 Dose: Not Given Oxycodone HCl (Oxycodone Immediate Release Tab) 30 mg PO Q4 PRN PRN Reason: Pain, moderate (4-7) Last Admin: 10/28/17 05:44 Dose: 30 mg - Labs Labs: 10/26/17 06:30 10/26/17 06:30 PT 11.8 SECONDS (9.4-12.5) 10/26/17 06:30 INR 1.03 (0.93-1.08) 10/26/17 06:30 APTT 37.5 Seconds (25.1-36.5) H 10/26/17 06:30 - Constitutional Appears: Non-toxic, Chronically Ill - Head Exam Head Exam: NORMAL INSPECTION - Neck Exam Neck Exam: absent: Meningismus - Respiratory Exam Respiratory Exam: Decreased Breath Sounds - Cardiovascular Exam Cardiovascular Exam: +S1, +S2 - GI/Abdominal Exam GI & Abdominal Exam: Soft. absent: Tenderness - Extremities Exam Additional comments: right foot with dressings in place Assessment and Plan - Assessment and Plan (Free Text) Plan: Assessment Sepsis due to right foot skin and skin structure infection with associated osteomyelitis, with methicillin-sensitive Staph aureus bacteremia and cannot rule out right sided endocarditis S/P debridement and I and D transaminitis probably from Nafcillin chronic active Hepatitis C Plan AST and ALT continues to decrease after d/c of Nafcillin and Cefazolin - continue Vancomycin and will continue to monitor liver tests (day 18 today) will get Vanco trough before next dose Hepatitis C should be addressed as an outpatient will continue to monitor clinically
[2017-10-29] MEDS: Vancomycin 1.5 GM in Sodium Chloride 0.9% 500 ML IVPB SCH ×2 (05:13→17:40)
[2017-10-29] MEDS: oxyCODONE 30 mg Immediate Release Tab PO PRN ×5 (05:14→20:59)
[2017-10-29] MEDS: Lactobacillus Acidophilus 500 MU Cap PO SCH ×2 (09:02→17:40)
--- NOTE | 2017-10-29 12:21 | CP.PCM.PN ---
<Roxanna Iyer - Last Filed: 10/29/17 12:19> Subjective - Date & Time of Evaluation Date of Evaluation: 10/29/17 Time of Evaluation: 12:19 - Subjective Subjective: 37 y/o male seen and examined at bedside this morning with attending Dr. Santiago for right foot incisional wound. States he should be discharged in about a week. States dressing has remained clean dry and intact. Admits to still having occasional deep pain within the infected bone in his foot. Denies any drainage from the wound through his dressing. Denies F/C/N/V/CP/SOB Objective - Vital Signs/Intake and Output Vital Signs (last 24 hours): Temp Pulse Resp BP Pulse Ox 97.9 F 58 L 20 100/56 L 99 10/29/17 07:30 10/29/17 07:30 10/29/17 07:30 10/29/17 07:30 10/29/17 07:30 Intake and Output: 10/29/17 10/29/17 06:59 18:59 Intake Total 1380 Balance 1380 - Medications Medications: Current Medications Famotidine (Pepcid) 20 mg PO 1000,2200 [facility] Last Admin: 10/29/17 09:02 Dose: 20 mg Haloperidol (Haldol) 3 mg PO Q6 PRN; Protocol PRN Reason: Agitation Heparin Sodium (Porcine) (Heparin) 5,000 units SC Q12 [facility] PRN Reason: Protocol Last Admin: 10/28/17 22:31 Dose: Not Given Vancomycin HCl 1.5 gm/ Sodium (Chloride) 500 mls @ 167 mls/hr IVPB Q12H [facility] PRN Reason: Protocol Last Admin: 10/29/17 05:13 Dose: 167 mls/hr Ibuprofen (Motrin Tab) 600 mg PO Q6H PRN PRN Reason: Pain, moderate (4-7) Lactobacillus Acidophilus (Bacid Acidophilus) 1 cap PO BID [facility] Last Admin: 10/29/17 09:02 Dose: 1 cap Lorazepam (Ativan) 1 mg PO Q6 PRN; Protocol PRN Reason: Agitation Nicotine (Nicoderm Cq) 1 patch TD DAILY [facility] Last Admin: 10/28/17 15:11 Dose: Not Given Oxycodone HCl (Oxycodone Immediate Release Tab) 30 mg PO Q4 PRN PRN Reason: Pain, moderate (4-7) Last Admin: 10/29/17 09:01 Dose: 30 mg - Labs Labs: 10/26/17 06:30 10/26/17 06:30 PT 11.8 SECONDS (9.4-12.5) 10/26/17 06:30 INR 1.03 (0.93-1.08) 10/26/17 06:30 APTT 37.5 Seconds (25.1-36.5) H 10/26/17 06:30 - Constitutional Appears: Well, Non-toxic, No Acute Distress - Extremities Exam Additional comments: Right lower extremity focused examination: VASC: DP/PT pulses fully palpable 2/4. CFT < 3 seconds x 10 digits. Temperature runs warm to cool proximal to distal. No edema noted to RLE DERM: Linear surgical incision site at dorsomedial aspect of right foot measuring approx 3.0cm x 0.2cm x 0.1cm with signs of epithelialization noted to roof of incision - almost fully healed at this time. Wound bed exhibits granular tissue formation with no fibrotic tissue or necrosis. Wound borders are mildly hyperkeratotic with evidence of scab formation. No malodor, no active purulence, no drainage noted on bandage or application of pressure to incision site. Minimal erythema to the surrounding surgical site ORTHO: Mild tenderness with palpation to surgical site NEURO: gross and protective sensation intact - Neurological Exam Neurological Exam: Alert, Awake, Oriented x3 - Psychiatric Exam Psychiatric exam: Normal Affect, Normal Mood Assessment and Plan - Assessment and Plan (Free Text) Assessment: 37 y/o male 3 weeks s/p I&D and debridement of all nonviable tissue of right foot abscess with cellulitis and OM (DOS: 10/07/17); cellulitis now resolved Plan: -Pt seen and evaluated -Discussed plan with attending Dr. Santiago -Chart, lab, vitals reviewed- afebrile, WBC 7.6 -Surgical site cleansed with saline solution and dressed with small optifoam bandage -Patient may shower as long as he keeps the dressing clean, dry, and intact -OR wound cx (+) for growth of S. Aureus -Bone biopsy- acute OM -Continue IV Nafcillin for 4-6 weeks per ID No PICC line as outpatient since pt is active IV drug abuser -Continue WBAT in surgical shoe to right foot -Pain control per medical team -Podiatry will continue to follow pt while in house <Bird Santiago - Last Filed: 10/30/17 11:25> Objective - Vital Signs/Intake and Output Vital Signs (last 24 hours): Temp Pulse Resp BP Pulse Ox 98.1 F 62 20 132/75 96 10/30/17 07:30 10/30/17 07:30 10/30/17 07:30 10/30/17 07:30 10/30/17 07:30 Intake and Output: 10/30/17 10/30/17 06:59 18:59 Intake Total 1500 Balance 1500 - Medications Medications: Current Medications Famotidine (Pepcid) 20 mg PO 1000,2200 [facility] Last Admin: 10/30/17 09:07 Dose: 20 mg Haloperidol (Haldol) 3 mg PO Q6 PRN; Protocol PRN Reason: Agitation Heparin Sodium (Porcine) (Heparin) 5,000 units SC Q12 [facility] PRN Reason: Protocol Last Admin: 10/30/17 09:06 Dose: Not Given Vancomycin HCl 1.5 gm/ Sodium (Chloride) 500 mls @ 167 mls/hr IVPB Q12H [facility] PRN Reason: Protocol Last Admin: 10/30/17 05:13 Dose: 167 mls/hr Ibuprofen (Motrin Tab) 600 mg PO Q6H PRN PRN Reason: Pain, moderate (4-7) Lactobacillus Acidophilus (Bacid Acidophilus) 1 cap PO BID [facility] Last Admin: 10/30/17 09:07 Dose: 1 cap Lorazepam (Ativan) 1 mg PO Q6 PRN; Protocol PRN Reason: Agitation Nicotine (Nicoderm Cq) 1 patch TD DAILY [facility] Last Admin: 10/30/17 09:07 Dose: Not Given Oxycodone HCl (Oxycodone Immediate Release Tab) 30 mg PO Q4 PRN PRN Reason: Pain, moderate (4-7) Last Admin: 10/30/17 09:07 Dose: 30 mg - Labs Labs: 10/30/17 08:00 10/30/17 08:00 PT 11.8 SECONDS (9.4-12.5) 10/26/17 06:30 INR 1.03 (0.93-1.08) 10/26/17 06:30 APTT 37.5 Seconds (25.1-36.5) H 10/26/17 06:30 Attending/Attestation - Attestation I have personally seen and examined this patient.: Yes I have fully participated in the care of the patient.: Yes I have reviewed all pertinent clinical information, including history, physical exam and plan: Yes
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
[2017-10-30] MEDS: oxyCODONE 30 mg Immediate Release Tab PO PRN ×6 (01:30→21:49)
--- NOTE | 2017-10-30 02:42 | PN ---
DATE: 10/29/2017 SUBJECTIVE: Patient is in bed, in no acute distress, nontoxic. PHYSICAL EXAMINATION: VITAL SIGNS: Temperature is 97, blood pressure is 120/90, respiratory rate of 20, heart rate of 63. HEENT: Unremarkable. NECK: Supple. LUNGS: Have decreased breath sounds. HEART: Normal S1, S2. ABDOMEN: Soft, nontender. LABORATORY DATA: Reveals a white count of 7.3, hemoglobin of 11, and platelets are 221. Chemistries are noted. LFTs are elevated and alk phos is elevated. Toxicology is reviewed. Microbiology is noted to have negative blood cultures. Patient has refused blood work as far as sed rate, C-reactive protein. ASSESSMENT AND PLAN: A 37-year-old male with sepsis, osteomyelitis which is sensitive to Staphylococcus aureus, right-sided endocarditis, bacteremia, status post debridement and irrigation of the foot, and chronic active hepatitis C. Currently on vancomycin, day number 19. Vancomycin level is still pending. Patient refused blood work including vancomycin level, sed rate, and C-reactive protein. We have re-ordered a vancomycin and we will continue to follow the patient who is an active intravenous drug abuser. Mayur Coleman MD
[2017-10-30] MEDS: Vancomycin 1.5 GM in Sodium Chloride 0.9% 500 ML IVPB SCH ×2 (05:13→17:43)
[2017-10-30 08:18] LABS: HEMOGLOBIN 12.5 g/dL (14.0-18.0); MEAN CELL VOLUME 88.2 fl (80.0-105.0); MEAN CORPUSCULAR HEMOGLOBIN 29.5 pg (25.0-35.0); MEAN CORPUSCULAR HGB CONC 33.4 g/dl (31.0-37.0); MEAN PLATELET VOLUME 10.9 fl (7.0-11.0); RBC 4.24 10^6/uL (3.5-6.1); RED CELL DISTRIBUTION WIDTH 13.3 % (11.5-14.5); WHITE BLOOD COUNT 8.1 10^3/ul (4.5-11.0)
[2017-10-30 08:59] LABS: BLOOD UREA NITROGEN 17 mg/dL (7-21)
[2017-10-30 09:00] LABS: ALBUMIN 4.1 g/dL (3.0-4.8); ALT/SGPT 249 U/L (7-56); AST/SGOT 38 U/L (17-59); CALCIUM 9.9 mg/dL (8.4-10.5); GFR AFRICAN-AMERICAN > 60; GFR NON-AFRICAN AMERICAN > 60
[2017-10-30] MEDS: Lactobacillus Acidophilus 500 MU Cap PO SCH (09:07)
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
--- NOTE | 2017-10-30 18:21 | CP.PCM.PN ---
<Roxanna Iyer - Last Filed: 10/30/17 18:20> Subjective - Date & Time of Evaluation Date of Evaluation: 10/30/17 Time of Evaluation: 18:20 - Subjective Subjective: 37 y/o male seen and examined at bedside with attending Dr. Murillo for right foot incisional wound. States he should be discharged in about a week. States dressing has remained clean dry and intact. Admits to still having occasional deep bone pain, worsened with the cold weather. Denies any drainage from the wound through his dressing. Denies F/C/N/V/CP/SOB Objective - Vital Signs/Intake and Output Vital Signs (last 24 hours): Temp Pulse Resp BP Pulse Ox 98.1 F 62 20 132/75 96 10/30/17 07:30 10/30/17 07:30 10/30/17 07:30 10/30/17 07:30 10/30/17 07:30 Intake and Output: 10/30/17 10/30/17 06:59 18:59 Intake Total 1500 Balance 1500 - Medications Medications: Current Medications Famotidine (Pepcid) 20 mg PO 1000,2200 [facility] Last Admin: 10/30/17 09:07 Dose: 20 mg Haloperidol (Haldol) 3 mg PO Q6 PRN; Protocol PRN Reason: Agitation Heparin Sodium (Porcine) (Heparin) 5,000 units SC Q12 QUENTIN PRN Reason: Protocol Last Admin: 10/30/17 09:06 Dose: Not Given Vancomycin HCl 1.5 gm/ Sodium (Chloride) 500 mls @ 167 mls/hr IVPB Q12H QUENTIN PRN Reason: Protocol Last Admin: 10/30/17 17:43 Dose: 167 mls/hr Ibuprofen (Motrin Tab) 600 mg PO Q6H PRN PRN Reason: Pain, moderate (4-7) Lactobacillus Acidophilus (Bacid Acidophilus) 1 cap PO BID [facility] Last Admin: 10/30/17 09:07 Dose: 1 cap Lorazepam (Ativan) 1 mg PO Q6 PRN; Protocol PRN Reason: Agitation Nicotine (Nicoderm Cq) 1 patch TD DAILY [facility] Last Admin: 10/30/17 09:07 Dose: Not Given Oxycodone HCl (Oxycodone Immediate Release Tab) 30 mg PO Q4 PRN PRN Reason: Pain, moderate (4-7) Last Admin: 10/30/17 17:42 Dose: 30 mg - Labs Labs: 10/30/17 08:00 10/30/17 08:00 PT 11.8 SECONDS (9.4-12.5) 10/26/17 06:30 INR 1.03 (0.93-1.08) 10/26/17 06:30 APTT 37.5 Seconds (25.1-36.5) H 10/26/17 06:30 - Constitutional Appears: Well, Non-toxic, No Acute Distress - Extremities Exam Additional comments: Right lower extremity focused examination: VASC: DP/PT pulses fully palpable 2/4. CFT < 3 seconds x 10 digits. Temperature runs warm to cool proximal to distal. No edema noted to RLE DERM: Linear surgical incision site at dorsomedial aspect of right foot measuring approx 3.0cm x 0.2cm x 0.1cm with signs of epithelialization noted to roof of incision - almost fully healed at this time. Wound bed exhibits granular tissue formation with no fibrotic tissue or necrosis. Wound borders are mildly hyperkeratotic with evidence of scab formation. No malodor, no active purulence, no drainage noted on bandage or application of pressure to incision site. Minimal erythema to the surrounding surgical site ORTHO: Mild tenderness with palpation to surgical site NEURO: gross and protective sensation intact - Neurological Exam Neurological Exam: Alert, Awake, Oriented x3 - Psychiatric Exam Psychiatric exam: Normal Affect, Normal Mood Assessment and Plan - Assessment and Plan (Free Text) Assessment: 37 y/o male 3 weeks s/p I&D and debridement of all nonviable tissue of right foot abscess with cellulitis and OM (DOS: 10/07/17); cellulitis now resolved Plan: -Pt seen and evaluated with attending Dr. Murillo -Chart, lab, vitals reviewed- afebrile, WBC 7.6 -Surgical site cleansed with saline solution and dressed with 4x4 gauze -Patient may shower as long as he keeps the dressing clean, dry, and intact -OR wound cx (+) for growth of S. Aureus -Bone biopsy- acute OM -Continue IV Nafcillin for 4-6 weeks per ID No PICC line as outpatient since pt is active IV drug abuser -Continue WBAT in surgical shoe to right foot -Pain control per medical team -Podiatry will continue to follow pt while in house <LidiaMaida K - Last Filed: 11/01/17 15:45> Objective - Vital Signs/Intake and Output Vital Signs (last 24 hours): Temp Pulse Resp BP Pulse Ox 102.7 F H 74 18 142/82 95 11/01/17 14:33 11/01/17 08:19 11/01/17 08:19 11/01/17 08:19 11/01/17 08:19 Intake and Output: 11/01/17 11/01/17 06:59 18:59 Intake Total 980 640 Balance 980 640 - Medications Medications: Current Medications Diphenhydramine HCl (Benadryl) 25 mg PO HS PRN PRN Reason: Insomnia Last Admin: 11/01/17 00:18 Dose: 25 mg Famotidine (Pepcid) 20 mg PO 1000,2200 [facility] Last Admin: 11/01/17 12:12 Dose: Not Given Haloperidol (Haldol) 3 mg PO Q6 PRN; Protocol PRN Reason: Agitation Heparin Sodium (Porcine) (Heparin) 5,000 units SC Q12 QUENTIN PRN Reason: Protocol Last Admin: 11/01/17 09:23 Dose: Not Given Vancomycin HCl 1.5 gm/ Sodium (Chloride) 500 mls @ 167 mls/hr IVPB Q12H [facility] PRN Reason: Protocol Last Admin: 11/01/17 06:23 Dose: 167 mls/hr Ibuprofen (Motrin Tab) 600 mg PO Q6H PRN PRN Reason: Pain, moderate (4-7) Last Admin: 11/01/17 14:33 Dose: 600 mg Ibuprofen (Motrin Tab) 400 mg PO Q6H PRN PRN Reason: Fever >100.4 F Lactobacillus Acidophilus (Bacid Acidophilus) 1 cap PO BID [facility] Last Admin: 11/01/17 12:11 Dose: Not Given Lorazepam (Ativan) 1 mg PO Q6 PRN; Protocol PRN Reason: Agitation Last Admin: 11/01/17 12:09 Dose: 1 mg Nicotine (Nicoderm Cq) 1 patch TD DAILY [facility] Last Admin: 11/01/17 09:23 Dose: Not Given Ondansetron HCl (Zofran Odt) 4 mg PO Q8H PRN PRN Reason: Nausea/Vomiting Oxycodone HCl (Oxycodone Immediate Release Tab) 30 mg PO Q4 PRN PRN Reason: Pain, moderate (4-7) Last Admin: 11/01/17 12:09 Dose: 30 mg - Labs Labs: 11/01/17 15:30 10/30/17 08:00 PT 11.8 SECONDS (9.4-12.5) 10/26/17 06:30 INR 1.03 (0.93-1.08) 10/26/17 06:30 APTT 37.5 Seconds (25.1-36.5) H 10/26/17 06:30 Attending/Attestation - Attestation I have personally seen and examined this patient.: Yes I have fully participated in the care of the patient.: Yes I have reviewed all pertinent clinical information, including history, physical exam and plan: Yes
--- NOTE | 2017-10-30 19:59 | PN ---
DATE: 10/30/2017 SUBJECTIVE: Patient is in bed, in no acute distress, nontoxic. PHYSICAL EXAMINATION VITAL SIGNS: Temperature is 98, blood pressure is 120/70, respiratory rate is 16. HEENT: Unremarkable. NECK: Supple. LUNGS: Have decreased breath sounds. HEART: Normal S1, S2. ABDOMEN: Soft, nontender. LABORATORY EXAMINATION: Reveals a white count of 8.1, hemoglobin of 12. Sed rate is 24. LFTs are improved and BUN and creatinine is noted. Toxicology is noted and C-reactive protein is 5.8. Microbiology revels the repeat cultures are negative. Review of orders revels the patient to be on vancomycin. ASSESSMENT AND PLAN: This is a 37-year-old with sepsis, osteomyelitis, sensitive Staph aureus, right-sided Staph aureus bacteremia, right-sided endocarditis, and hepatitis C, on day #20 of vancomycin and patient appears to be improving. Mayur Coleman MD
[2017-10-31] MEDS: oxyCODONE 30 mg Immediate Release Tab PO PRN ×5 (04:07→21:53)
[2017-10-31] MEDS: Vancomycin 1.5 GM in Sodium Chloride 0.9% 500 ML IVPB SCH ×2 (06:24→17:54)
--- NOTE | 2017-10-31 09:48 | CP.PCM.PN ---
Subjective - Date & Time of Evaluation Date of Evaluation: 10/31/17 Time of Evaluation: 09:46 - Subjective Subjective: 37 y/o male seen and examined at bedside for right foot dorsomedial linear incisional wound. States his pain is intermittent throughout the day. States he should be leaving in the next few days and plans to follow up to ensure his infection does not persist or return. Denies any drainage from the wound through his dressing. Denies F/C/N/V/CP/SOB Objective - Vital Signs/Intake and Output Vital Signs (last 24 hours): Temp Pulse Resp BP Pulse Ox 98.1 F 83 20 128/73 97 10/31/17 07:30 10/31/17 07:30 10/31/17 07:30 10/31/17 07:30 10/31/17 07:30 Intake and Output: 10/31/17 10/31/17 06:59 18:59 Intake Total 2200 Balance 2200 - Medications Medications: Current Medications Famotidine (Pepcid) 20 mg PO 1000,2200 [facility] Last Admin: 10/30/17 21:49 Dose: 20 mg Haloperidol (Haldol) 3 mg PO Q6 PRN; Protocol PRN Reason: Agitation Heparin Sodium (Porcine) (Heparin) 5,000 units SC Q12 QEUNTIN PRN Reason: Protocol Last Admin: 10/30/17 21:33 Dose: Not Given Vancomycin HCl 1.5 gm/ Sodium (Chloride) 500 mls @ 167 mls/hr IVPB Q12H QUENTIN PRN Reason: Protocol Last Admin: 10/31/17 06:24 Dose: 167 mls/hr Ibuprofen (Motrin Tab) 600 mg PO Q6H PRN PRN Reason: Pain, moderate (4-7) Lactobacillus Acidophilus (Bacid Acidophilus) 1 cap PO BID [facility] Last Admin: 10/30/17 09:07 Dose: 1 cap Lorazepam (Ativan) 1 mg PO Q6 PRN; Protocol PRN Reason: Agitation Last Admin: 10/30/17 22:53 Dose: 1 mg Nicotine (Nicoderm Cq) 1 patch TD DAILY [facility] Last Admin: 10/30/17 09:07 Dose: Not Given Oxycodone HCl (Oxycodone Immediate Release Tab) 30 mg PO Q4 PRN PRN Reason: Pain, moderate (4-7) Last Admin: 10/31/17 08:39 Dose: 30 mg - Labs Labs: 10/30/17 08:00 10/30/17 08:00 PT 11.8 SECONDS (9.4-12.5) 10/26/17 06:30 INR 1.03 (0.93-1.08) 10/26/17 06:30 APTT 37.5 Seconds (25.1-36.5) H 10/26/17 06:30 - Constitutional Appears: Well, Non-toxic, No Acute Distress - Extremities Exam Additional comments: Right lower extremity focused examination: VASC: DP/PT pulses fully palpable 2/4. CFT < 3 seconds x 10 digits. Temperature runs warm to cool proximal to distal. No edema noted to RLE DERM: Linear surgical incision site at dorsomedial aspect of right foot measuring approx 3.0cm x 0.2cm x 0.1cm with epithelialization noted to roof of incision - fully healed at this time. Wound borders are mildly hyperkeratotic with evidence of scab formation. No malodor, no active purulence, no drainage noted on bandage or application of pressure to incision site. Minimal erythema to the surrounding surgical site ORTHO: Mild tenderness with palpation to surgical site NEURO: gross and protective sensation intact - Neurological Exam Neurological Exam: Alert, Awake, Oriented x3 - Psychiatric Exam Psychiatric exam: Normal Affect, Normal Mood Assessment and Plan - Assessment and Plan (Free Text) Assessment: 37 y/o male 24 weeks s/p I&D and debridement of all nonviable tissue of right foot abscess with cellulitis and OM (DOS: 10/07/17); cellulitis now resolved Plan: -Pt seen and evaluated -Discussed with attending Dr. Murillo -Chart, lab, vitals reviewed- afebrile, WBC 8.1 -Surgical site cleansed with saline solution and dressed with 4x4 gauze -Patient may shower as long as he keeps the dressing clean, dry, and intact -Wound fully healed at this time- recommend Tylenol for pain management -Continue IV Nafcillin for 4-6 weeks per ID No PICC line as outpatient since pt is active IV drug abuser -Continue WBAT in surgical shoe to right foot -Podiatry will continue to follow pt while in house
[2017-10-31] MEDS: Lactobacillus Acidophilus 500 MU Cap PO SCH ×2 (10:47→17:55)
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
--- NOTE | 2017-11-01 00:14 | PN ---
DATE: SUBJECTIVE: Patient is in bed, in no acute distress. PHYSICAL EXAMINATION: VITAL SIGNS: On exam, temperature is 98, blood pressure is 130/80, respiratory rate of 18. HEENT: Unremarkable. NECK: Supple. LUNGS: Have decreased breath sounds. HEART: Normal S1, S2. ABDOMEN: Soft, nontender. LABORATORY EXAMINATION: Reveals a white count of 7.6, hemoglobin of 11, platelets of 221. Chemistries are noted. BUN of 17, creatinine of 0.9. Blood cultures are negative. Patient is currently on vancomycin. ASSESSMENT AND PLAN: This is a 37-year-old male with sepsis, osteomyelitis, sensitive Staph aureus, right-sided Staph aureus bacteremia, right-sided endocarditis, and hepatitis C; on day number 21 of vancomycin and tolerating medications well. Mayur Coleman MD
[2017-11-01] MEDS: oxyCODONE 30 mg Immediate Release Tab PO PRN ×5 (00:55→20:47)
[2017-11-01] MEDS: Vancomycin 1.5 GM in Sodium Chloride 0.9% 500 ML IVPB SCH ×2 (06:23→18:07)
--- NOTE | 2017-11-01 11:43 | CP.PCM.PN ---
<Roxanna Iyer - Last Filed: 11/01/17 11:43> Subjective - Date & Time of Evaluation Date of Evaluation: 11/01/17 Time of Evaluation: 11:41 - Subjective Subjective: 37 y/o male seen and examined at bedside with attending Dr. Santiago for right foot dorsomedial linear incisional wound. States his pain is decreased today. Admits to sleeping well. Denies any drainage from the wound through his dressing. States he showered yesterday and got it wet and had it re-wrapped. Denies F/C/N/V/CP/SOB Objective - Vital Signs/Intake and Output Vital Signs (last 24 hours): Temp Pulse Resp BP Pulse Ox 98.7 F 74 18 142/82 95 11/01/17 08:19 11/01/17 08:19 11/01/17 08:19 11/01/17 08:19 11/01/17 08:19 Intake and Output: 11/01/17 11/01/17 06:59 18:59 Intake Total 980 Balance 980 - Medications Medications: Current Medications Diphenhydramine HCl (Benadryl) 25 mg PO HS PRN PRN Reason: Insomnia Last Admin: 11/01/17 00:18 Dose: 25 mg Famotidine (Pepcid) 20 mg PO 1000,2200 [facility] Last Admin: 10/31/17 21:53 Dose: 20 mg Haloperidol (Haldol) 3 mg PO Q6 PRN; Protocol PRN Reason: Agitation Heparin Sodium (Porcine) (Heparin) 5,000 units SC Q12 [facility] PRN Reason: Protocol Last Admin: 11/01/17 09:23 Dose: Not Given Vancomycin HCl 1.5 gm/ Sodium (Chloride) 500 mls @ 167 mls/hr IVPB Q12H [facility] PRN Reason: Protocol Last Admin: 11/01/17 06:23 Dose: 167 mls/hr Ibuprofen (Motrin Tab) 600 mg PO Q6H PRN PRN Reason: Pain, moderate (4-7) Lactobacillus Acidophilus (Bacid Acidophilus) 1 cap PO BID [facility] Last Admin: 10/31/17 17:55 Dose: 1 cap Lorazepam (Ativan) 1 mg PO Q6 PRN; Protocol PRN Reason: Agitation Last Admin: 11/01/17 00:21 Dose: 1 mg Nicotine (Nicoderm Cq) 1 patch TD DAILY [facility] Last Admin: 11/01/17 09:23 Dose: Not Given Oxycodone HCl (Oxycodone Immediate Release Tab) 30 mg PO Q4 PRN PRN Reason: Pain, moderate (4-7) Last Admin: 11/01/17 06:23 Dose: 30 mg - Labs Labs: 10/30/17 08:00 10/30/17 08:00 PT 11.8 SECONDS (9.4-12.5) 10/26/17 06:30 INR 1.03 (0.93-1.08) 10/26/17 06:30 APTT 37.5 Seconds (25.1-36.5) H 10/26/17 06:30 - Constitutional Appears: Well, Non-toxic, No Acute Distress - Extremities Exam Additional comments: Right lower extremity focused examination: VASC: DP/PT pulses fully palpable 2/4. CFT < 3 seconds x 10 digits. Temperature runs warm to cool proximal to distal. No edema noted to RLE DERM: Linear surgical incision site at dorsomedial aspect of right foot measuring approx 3.0cm x 0.2cm x 0.1cm with epithelialization noted to roof of incision - fully healed at this time. Wound borders are mildly hyperkeratotic with evidence of scab formation. No malodor, no active purulence, no drainage noted on bandage or application of pressure to incision site. Minimal erythema to the surrounding surgical site ORTHO: Mild tenderness with palpation to surgical site NEURO: gross and protective sensation intact - Neurological Exam Neurological Exam: Alert, Awake, Oriented x3 - Psychiatric Exam Psychiatric exam: Normal Affect, Normal Mood Assessment and Plan - Assessment and Plan (Free Text) Assessment: 37 y/o male 25 days s/p I&D and debridement of all nonviable tissue of right foot abscess with cellulitis and OM (DOS: 10/07/17); cellulitis now resolved Plan: -Pt seen and evaluated -Discussed with attending Dr. Santiago -Chart, lab, vitals reviewed- afebrile, WBC 8.1 -Surgical site cleansed with saline solution -Patient may shower and get the foot wet -Wound fully healed at this time- recommend Tylenol for pain management -No dressing needed at this time -Continue IV Nafcillin for 4-6 weeks per ID No PICC line as outpatient since pt is active IV drug abuser -Continue WBAT in surgical shoe to right foot -Podiatry will continue to follow pt while in house <Bird Santiago - Last Filed: 11/01/17 16:47> Objective - Vital Signs/Intake and Output Vital Signs (last 24 hours): Temp Pulse Resp BP Pulse Ox 99 F 89 20 120/67 100 11/01/17 16:32 11/01/17 14:00 11/01/17 14:00 11/01/17 14:00 11/01/17 14:00 Intake and Output: 11/01/17 11/01/17 06:59 18:59 Intake Total 980 640 Balance 980 640 - Medications Medications: Current Medications Diphenhydramine HCl (Benadryl) 25 mg PO HS PRN PRN Reason: Insomnia Last Admin: 11/01/17 00:18 Dose: 25 mg Famotidine (Pepcid) 20 mg PO 1000,2200 [facility] Last Admin: 11/01/17 12:12 Dose: Not Given Haloperidol (Haldol) 3 mg PO Q6 PRN; Protocol PRN Reason: Agitation Heparin Sodium (Porcine) (Heparin) 5,000 units SC Q12 [facility] PRN Reason: Protocol Last Admin: 11/01/17 09:23 Dose: Not Given Vancomycin HCl 1.5 gm/ Sodium (Chloride) 500 mls @ 167 mls/hr IVPB Q12H [facility] PRN Reason: Protocol Last Admin: 11/01/17 06:23 Dose: 167 mls/hr Ibuprofen (Motrin Tab) 600 mg PO Q6H PRN PRN Reason: Pain, moderate (4-7) Last Admin: 11/01/17 14:33 Dose: 600 mg Ibuprofen (Motrin Tab) 400 mg PO Q6H PRN PRN Reason: Fever >100.4 F Lactobacillus Acidophilus (Bacid Acidophilus) 1 cap PO BID [facility] Last Admin: 11/01/17 12:11 Dose: Not Given Lorazepam (Ativan) 1 mg PO Q6 PRN; Protocol PRN Reason: Agitation Last Admin: 11/01/17 12:09 Dose: 1 mg Nicotine (Nicoderm Cq) 1 patch TD DAILY [facility] Last Admin: 11/01/17 09:23 Dose: Not Given Ondansetron HCl (Zofran Odt) 4 mg PO Q8H PRN PRN Reason: Nausea/Vomiting Oxycodone HCl (Oxycodone Immediate Release Tab) 30 mg PO Q4 PRN PRN Reason: Pain, moderate (4-7) Last Admin: 11/01/17 15:57 Dose: 30 mg - Labs Labs: 11/01/17 15:30 11/01/17 15:30 PT 11.8 SECONDS (9.4-12.5) 10/26/17 06:30 INR 1.03 (0.93-1.08) 10/26/17 06:30 APTT 37.5 Seconds (25.1-36.5) H 10/26/17 06:30 Attending/Attestation - Attestation I have personally seen and examined this patient.: Yes I have fully participated in the care of the patient.: Yes I have reviewed all pertinent clinical information, including history, physical exam and plan: Yes
[2017-11-01] MEDS: Lactobacillus Acidophilus 500 MU Cap PO SCH ×3 (12:07→17:04)
--- NOTE | 2017-11-01 13:29 | RAD ---
HISTORY: Fever COMPARISON: No prior. FINDINGS: LUNGS: No active pulmonary disease. PLEURA: No significant pleural effusion identified, no pneumothorax apparent. CARDIOVASCULAR: Normal. OSSEOUS STRUCTURES: No significant abnormalities. VISUALIZED UPPER ABDOMEN: Normal. OTHER FINDINGS: None. IMPRESSION: No active disease.
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
[2017-11-01 15:34] LABS: VENOUS BLOOD GAS BASE EXCESS 5.8 mmol/L (0.0-2.0); VENOUS BLOOD GAS PO2 243 mm/Hg (30-55); VENOUS BLOOD PH 7.48 (7.32-7.43)
[2017-11-01 15:38] LABS: BASO # 0.01 K/mm3 (0.0-2.0); BASO % 0.1 % (0.0-3.0); EOS % 0.3 % (1.5-5.0); GRAN # 8.92 (1.4-6.5); GRAN % 83.5 % (50.0-68.0); LYMPH # 1.1 (1.2-3.4); LYMPH % 10.1 % (22.0-35.0); MEAN CELL VOLUME 87.3 fl (80.0-105.0); MEAN CORPUSCULAR HGB CONC 33.2 g/dl (31.0-37.0); MEAN PLATELET VOLUME 10.8 fl (7.0-11.0); MONO # 0.6 (0.1-0.6); RBC 3.79 10^6/uL (3.5-6.1); WHITE BLOOD COUNT 10.7 10^3/ul (4.5-11.0)
[2017-11-01 15:51] LABS: ALBUMIN 3.8 g/dL (3.0-4.8); ALT/SGPT 138 U/L (7-56); AST/SGOT 31 U/L (17-59); BLOOD UREA NITROGEN 20 mg/dL (7-21); CALCIUM 9.5 mg/dL (8.4-10.5); GFR AFRICAN-AMERICAN > 60; GFR NON-AFRICAN AMERICAN > 60
--- NOTE | 2017-11-01 21:20 | CP.PCM.PN ---
Subjective - Date & Time of Evaluation Date of Evaluation: 11/01/17 Time of Evaluation: 10:40 - Subjective Subjective: Comfortable, less pain in the foot, no fevers, not in distress. Objective - Vital Signs/Intake and Output Vital Signs (last 24 hours): Temp Pulse Resp BP Pulse Ox 98.7 F 74 18 142/82 95 11/01/17 08:19 11/01/17 08:19 11/01/17 08:19 11/01/17 08:19 11/01/17 08:19 Intake and Output: 11/01/17 11/01/17 06:59 18:59 Intake Total 980 Balance 980 - Medications Medications: Current Medications Diphenhydramine HCl (Benadryl) 25 mg PO HS PRN PRN Reason: Insomnia Last Admin: 11/01/17 00:18 Dose: 25 mg Famotidine (Pepcid) 20 mg PO 1000,2200 [facility] Last Admin: 10/31/17 21:53 Dose: 20 mg Haloperidol (Haldol) 3 mg PO Q6 PRN; Protocol PRN Reason: Agitation Heparin Sodium (Porcine) (Heparin) 5,000 units SC Q12 [facility] PRN Reason: Protocol Last Admin: 11/01/17 09:23 Dose: Not Given Vancomycin HCl 1.5 gm/ Sodium (Chloride) 500 mls @ 167 mls/hr IVPB Q12H [facility] PRN Reason: Protocol Last Admin: 11/01/17 06:23 Dose: 167 mls/hr Ibuprofen (Motrin Tab) 600 mg PO Q6H PRN PRN Reason: Pain, moderate (4-7) Lactobacillus Acidophilus (Bacid Acidophilus) 1 cap PO BID [facility] Last Admin: 10/31/17 17:55 Dose: 1 cap Lorazepam (Ativan) 1 mg PO Q6 PRN; Protocol PRN Reason: Agitation Last Admin: 11/01/17 00:21 Dose: 1 mg Nicotine (Nicoderm Cq) 1 patch TD DAILY [facility] Last Admin: 11/01/17 09:23 Dose: Not Given Oxycodone HCl (Oxycodone Immediate Release Tab) 30 mg PO Q4 PRN PRN Reason: Pain, moderate (4-7) Last Admin: 11/01/17 06:23 Dose: 30 mg - Labs Labs: 10/30/17 08:00 10/30/17 08:00 PT 11.8 SECONDS (9.4-12.5) 10/26/17 06:30 INR 1.03 (0.93-1.08) 10/26/17 06:30 APTT 37.5 Seconds (25.1-36.5) H 10/26/17 06:30 - Constitutional Appears: Non-toxic, Chronically Ill - Head Exam Head Exam: NORMAL INSPECTION - Neck Exam Neck Exam: absent: Meningismus - Respiratory Exam Respiratory Exam: Decreased Breath Sounds - Cardiovascular Exam Cardiovascular Exam: +S1, +S2 - GI/Abdominal Exam GI & Abdominal Exam: Soft. absent: Tenderness - Extremities Exam Additional comments: right foot with dressings in place Assessment and Plan - Assessment and Plan (Free Text) Plan: Assessment Sepsis due to right foot skin and skin structure infection with associated osteomyelitis, with methicillin-sensitive Staph aureus bacteremia and cannot rule out right sided endocarditis S/P debridement and I and D transaminitis probably from Nafcillin chronic active Hepatitis C Plan AST and ALT continues to decrease after d/c of Nafcillin and Cefazolin - continue Vancomycin and will continue to monitor liver tests (day 28 today from first negative blood cx which is 10/05/2017) - should complete at least 4 weeks of antibiotics - CRP has normalized Hepatitis C should be addressed as an outpatient will continue to monitor clinically
[2017-11-02] MEDS ORDERED: Sodium Chloride 0.9% 500 ML IV STA (00:30)
--- NOTE | 2017-11-02 00:34 | CP.PCM.PN ---
Subjective - Date & Time of Evaluation Date of Evaluation: 11/02/17 Time of Evaluation: 00:32 - Subjective Subjective: PGY-[address] Shukla S: Pt vomited 100-200cc digested food now. He had veal parmesan for dinner. Pt felt nausea throughout the day, unassociated with food. (+) fever and chills. Denies PAULSON, CP, SOB, Abd pain, diarrhea. O: VS: T 100.5, HR 70s. SBP 112 HEENT: Atraumatic Card: regular S1 S2 no murmur Pulm: (+) wheezes. BSCTA b/l. No crackles or rhonchi Abd: Soft NTND A/P: Nausea/Vomiting likely secondary to viral vs bacterial infection vs common antibiotic side effect - NS 500 bolus - Zofran PRN - Add tylenol x 1 for fever control since motrin was given but fever was not trending down - CXR this afternoon: no active disease - Pending septic workup drawn this afternoon - Pt refuse duoneb for now. Pt walks around the nurse station without shortness of breath Objective - Vital Signs/Intake and Output Vital Signs (last 24 hours): Temp Pulse Resp BP Pulse Ox 99 F 89 20 120/67 100 11/01/17 16:32 11/01/17 14:00 11/01/17 14:00 11/01/17 14:00 11/01/17 14:00 Intake and Output: 11/01/17 11/02/17 18:59 06:59 Intake Total 640 1060 Balance 640 1060 - Medications Medications: Current Medications Acetaminophen (Tylenol 325mg Tab) 650 mg PO Q6H PRN PRN Reason: Fever >100.4 F Diphenhydramine HCl (Benadryl) 25 mg PO HS PRN PRN Reason: Insomnia Last Admin: 11/01/17 00:18 Dose: 25 mg Famotidine (Pepcid) 20 mg PO 1000,2200 [facility] Last Admin: 11/01/17 21:35 Dose: 20 mg Haloperidol (Haldol) 3 mg PO Q6 PRN; Protocol PRN Reason: Agitation Heparin Sodium (Porcine) (Heparin) 5,000 units SC Q12 [facility] PRN Reason: Protocol Last Admin: 11/01/17 21:53 Dose: Not Given Vancomycin HCl 1.5 gm/ Sodium (Chloride) 500 mls @ 167 mls/hr IVPB Q12H [facility] PRN Reason: Protocol Last Admin: 11/01/17 18:07 Dose: 167 mls/hr Sodium Chloride (Sodium Chloride 0.9%) 500 mls @ 999 mls/hr IV .Q31M STA Stop: 11/02/17 01:00 Ibuprofen (Motrin Tab) 600 mg PO Q6H PRN PRN Reason: Pain, moderate (4-7) Last Admin: 11/01/17 14:33 Dose: 600 mg Ibuprofen (Motrin Tab) 400 mg PO Q6H PRN PRN Reason: Fever >100.4 F Last Admin: 11/01/17 22:25 Dose: 400 mg Lactobacillus Acidophilus (Bacid Acidophilus) 1 cap PO BID [facility] Last Admin: 11/01/17 17:04 Dose: Not Given Lorazepam (Ativan) 1 mg PO Q6 PRN; Protocol PRN Reason: Agitation Last Admin: 11/01/17 21:35 Dose: 1 mg Nicotine (Nicoderm Cq) 1 patch TD DAILY [facility] Last Admin: 11/01/17 09:23 Dose: Not Given Ondansetron HCl (Zofran Odt) 4 mg PO Q8H PRN PRN Reason: Nausea/Vomiting Oxycodone HCl (Oxycodone Immediate Release Tab) 30 mg PO Q4 PRN PRN Reason: Pain, moderate (4-7) Last Admin: 11/01/17 20:47 Dose: 30 mg - Labs Labs: 11/01/17 15:30 11/01/17 15:30 PT 11.8 SECONDS (9.4-12.5) 10/26/17 06:30 INR 1.03 (0.93-1.08) 10/26/17 06:30 APTT 37.5 Seconds (25.1-36.5) H 10/26/17 06:30
[2017-11-02] MEDS: oxyCODONE 30 mg Immediate Release Tab PO PRN ×6 (02:00→22:32)
[2017-11-02] MEDS: Vancomycin 1.5 GM in Sodium Chloride 0.9% 500 ML IVPB SCH ×2 (05:45→17:35)
[2017-11-02] MEDS: Lactobacillus Acidophilus 500 MU Cap PO SCH ×2 (09:17→17:35)
--- NOTE | 2017-11-02 10:13 | CP.PCM.PN ---
Subjective - Date & Time of Evaluation Date of Evaluation: 11/02/17 Time of Evaluation: 08:00 - Subjective Subjective: Podiatry Progress Note- Dr. Santiago 37 y/o male seen and examined at bedside with attending Dr. Santiago for right foot dorsomedial linear incisional wound s/p i and d for abscess with OM to medial cuneiform. Patient reports his pain is decreased today. Reports having a fever last night. Today reports feeling better. No fevers. Denies any drainage from the wound through his dressing. No dressing. Reports that he has been crossing his foot and putting left foot on top of his right foot where healing surgical incision is. Denies F/C/N/V/CP/SOB Objective - Vital Signs/Intake and Output Vital Signs (last 24 hours): Temp Pulse Resp BP Pulse Ox 98.9 F 85 20 130/78 96 11/02/17 07:30 11/02/17 07:30 11/02/17 07:30 11/02/17 07:30 11/02/17 07:30 Intake and Output: 11/02/17 11/02/17 06:59 18:59 Intake Total 1180 Balance 1180 - Medications Medications: Current Medications Acetaminophen (Tylenol 325mg Tab) 650 mg PO Q6H PRN PRN Reason: Fever >100.4 F Last Admin: 11/02/17 00:38 Dose: 650 mg Diphenhydramine HCl (Benadryl) 25 mg PO HS PRN PRN Reason: Insomnia Last Admin: 11/02/17 02:16 Dose: 25 mg Famotidine (Pepcid) 20 mg PO 1000,2200 QUENTIN Last Admin: 11/02/17 09:14 Dose: 20 mg Haloperidol (Haldol) 3 mg PO Q6 PRN; Protocol PRN Reason: Agitation Heparin Sodium (Porcine) (Heparin) 5,000 units SC Q12 QUENTIN PRN Reason: Protocol Last Admin: 11/02/17 09:16 Dose: Not Given Vancomycin HCl 1.5 gm/ Sodium (Chloride) 500 mls @ 167 mls/hr IVPB Q12H QUENTIN PRN Reason: Protocol Last Admin: 11/02/17 05:45 Dose: 167 mls/hr Ibuprofen (Motrin Tab) 600 mg PO Q6H PRN PRN Reason: Pain, moderate (4-7) Last Admin: 11/01/17 14:33 Dose: 600 mg Ibuprofen (Motrin Tab) 400 mg PO Q6H PRN PRN Reason: Fever >100.4 F Last Admin: 11/01/17 22:25 Dose: 400 mg Lactobacillus Acidophilus (Bacid Acidophilus) 1 cap PO BID COUNT INCLUDES [facility] Last Admin: 11/02/17 09:17 Dose: Not Given Lorazepam (Ativan) 1 mg PO Q6 PRN; Protocol PRN Reason: Agitation Last Admin: 11/02/17 08:19 Dose: 1 mg Nicotine (Nicoderm Cq) 1 patch TD DAILY COUNT INCLUDES THE [facility] Last Admin: 11/02/17 09:16 Dose: Not Given Ondansetron HCl (Zofran Odt) 4 mg PO Q8H PRN PRN Reason: Nausea/Vomiting Oxycodone HCl (Oxycodone Immediate Release Tab) 30 mg PO Q4 PRN PRN Reason: Pain, moderate (4-7) Last Admin: 11/02/17 05:44 Dose: 30 mg - Labs Labs: 11/01/17 15:30 11/01/17 15:30 PT 11.8 SECONDS (9.4-12.5) 10/26/17 06:30 INR 1.03 (0.93-1.08) 10/26/17 06:30 APTT 37.5 Seconds (25.1-36.5) H 10/26/17 06:30 - Constitutional Appears: Well, Non-toxic, No Acute Distress - Extremities Exam Extremities Exam: absent: Calf Tenderness Additional comments: VASC: DP/PT pulses fully palpable 2/4. CFT < 3 seconds x 10 digits. Temperature runs warm to cool proximal to distal. No edema noted to RLE DERM: Linear surgical incision site at dorsomedial aspect of right foot measuring approx 3.0cm x 0.2cm x 0.1cm with epithelialization noted to roof of incision - fully healed at this time. Wound borders are mildly hyperkeratotic with evidence of scab formation. No malodor, no active purulence, no drainage noted on bandage or application of pressure to incision site. Minimal erythema to the surrounding surgical site ORTHO: Mild tenderness with palpation to surgical site NEURO: gross and protective sensation intact - Neurological Exam Neurological Exam: Alert, Awake, Oriented x3 - Psychiatric Exam Psychiatric exam: Normal Affect, Normal Mood Assessment and Plan - Assessment and Plan (Free Text) Assessment: 37 y/o male 25 days s/p I&D and debridement of all nonviable tissue of right foot abscess with cellulitis and OM (DOS: 10/07/17); cellulitis now resolved Plan: -Pt seen and evaluated -Discussed with attending Dr. Santiago -Chart, lab, vitals reviewed- febrile yesterday, WBC10.7 -Negative for the flu -Patient may shower and get the foot wet -Wound fully healed at this time- recommend Tylenol for pain management -No dressing needed at this time -Instructed patient to avoid crossing his foot and placing left heel on top of right foot. Explained to patient recently healed surgical incision. Avoid pressure on recently healed surgical incision, may open secondary to pressure/ shearing force. Patient understands -Surgical site cleansed with saline solution -Continue IV Nafcillin for 4-6 weeks per ID No PICC line as outpatient since pt is active IV drug abuser -Continue WBAT in surgical shoe to right foot -Podiatry will continue to follow pt while in house
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
--- NOTE | 2017-11-03 01:43 | PN ---
DATE: 11/02/2017 SUBJECTIVE: The patient was seen early this morning. PHYSICAL EXAMINATION: VITAL SIGNS: Temperature is 99, blood pressure is 140/80, respiratory rate of 18, and heart rate of 95. HEENT: Examination of the HEENT is unremarkable. NECK: Supple. LUNGS: Have decreased breath sounds. HEART: Normal S1, S2. ABDOMEN: Soft and nontender. LABORATORY DATA: Reveals white count of 10,000, hemoglobin of 11, and platelets of 203. Chemistries reveal BUN 12 and creatinine of 1.2. LFTs have improved. ASSESSMENT AND PLAN: The patient did have a temperature, which is improving. Repeat cultures are negative yesterday. Currently, the patient is on vancomycin. Review of the cultures revealed the patient had negative cultures on the 3rd of this month. Initial blood culture was positive for Staphylococcus aureus from the second and third. We will follow closely with you. Mayur Coleman MD
[2017-11-03] MEDS: oxyCODONE 30 mg Immediate Release Tab PO PRN ×3 (02:13→10:20)
[2017-11-03] MEDS: Vancomycin 1.5 GM in Sodium Chloride 0.9% 500 ML IVPB SCH (05:30)
--- NOTE | 2017-11-03 06:48 | CP.PCM.PN ---
Subjective - Date & Time of Evaluation Date of Evaluation: 11/03/17 Time of Evaluation: 06:47 - Subjective Subjective: # 20 angiocath was inserted in right forearm. Dx:Poor venous access. Objective - Vital Signs/Intake and Output Vital Signs (last 24 hours): Temp Pulse Resp BP Pulse Ox 99.6 F 80 17 142/84 96 11/03/17 02:57 11/02/17 18:48 11/02/17 18:48 11/02/17 18:48 11/02/17 18:48 Intake and Output: 11/02/17 11/03/17 18:59 06:59 Intake Total 240 Balance 240 - Medications Medications: Current Medications Acetaminophen (Tylenol 325mg Tab) 650 mg PO Q6H PRN PRN Reason: Fever >100.4 F Last Admin: 11/02/17 00:38 Dose: 650 mg Diphenhydramine HCl (Benadryl) 25 mg PO HS PRN PRN Reason: Insomnia Last Admin: 11/03/17 00:45 Dose: 25 mg Famotidine (Pepcid) 20 mg PO 1000,2200 [facility] Last Admin: 11/02/17 22:29 Dose: Not Given Haloperidol (Haldol) 3 mg PO Q6 PRN; Protocol PRN Reason: Agitation Heparin Sodium (Porcine) (Heparin) 5,000 units SC Q12 QUENTIN PRN Reason: Protocol Last Admin: 11/02/17 22:25 Dose: Not Given Vancomycin HCl 1.5 gm/ Sodium (Chloride) 500 mls @ 167 mls/hr IVPB Q12H QUENTIN PRN Reason: Protocol Last Admin: 11/03/17 05:30 Dose: 167 mls/hr Ibuprofen (Motrin Tab) 600 mg PO Q6H PRN PRN Reason: Pain, moderate (4-7) Last Admin: 11/01/17 14:33 Dose: 600 mg Ibuprofen (Motrin Tab) 400 mg PO Q6H PRN PRN Reason: Fever >100.4 F Last Admin: 11/03/17 00:15 Dose: 400 mg Lactobacillus Acidophilus (Bacid Acidophilus) 1 cap PO BID [facility] Last Admin: 11/02/17 17:35 Dose: Not Given Lorazepam (Ativan) 1 mg PO Q6 PRN; Protocol PRN Reason: Agitation Last Admin: 11/02/17 23:45 Dose: 1 mg Nicotine (Nicoderm Cq) 1 patch TD DAILY [facility] Last Admin: 11/02/17 09:16 Dose: Not Given Ondansetron HCl (Zofran Odt) 4 mg PO Q8H PRN PRN Reason: Nausea/Vomiting Oxycodone HCl (Oxycodone Immediate Release Tab) 30 mg PO Q4 PRN PRN Reason: Pain, moderate (4-7) Last Admin: 11/03/17 02:13 Dose: 30 mg - Labs Labs: 11/01/17 15:30 11/01/17 15:30 PT 11.8 SECONDS (9.4-12.5) 10/26/17 06:30 INR 1.03 (0.93-1.08) 10/26/17 06:30 APTT 37.5 Seconds (25.1-36.5) H 10/26/17 06:30
[2017-11-03 08:45] VITALS: BP 122/76; PULSE 71; RESP 20; TEMP 98; O2SAT 97
[2017-11-03] MEDS: Lactobacillus Acidophilus 500 MU Cap PO SCH (10:21)
--- NOTE | 2017-11-03 13:28 | CP.PCM.PN ---
<Umberto Rivera - Last Filed: 11/03/17 13:23> Subjective - Date & Time of Evaluation Date of Evaluation: 11/03/17 Time of Evaluation: 11:00 - Subjective Subjective: Podiatry Progress Note- Dr. Murillo 37 y/o male seen and examined for right foot dorsomedial linear incisional wound s/p i and d for abscess with OM to medial cuneiform. Patient is seen walking back and forth stating he is signing himself out today. Patient reports he should be discharge today, if not he will sign AMA. Reports that he has not slept in 3 days and no longer wants to be in the hospital. Reports wanted doors closed and blinds down at night but was told could not for safely purposed. Patient denies of any pain to the right foot. Is seen ambulating with sandals and optifoam dressing intact to the right foot. He denies not feeling chills or fevers; records shows temperature of 100.6F today. Patient denies nausea, fever , shortness of breath, chest pains, diarrhea. No new pedal complains. Objective - Vital Signs/Intake and Output Vital Signs (last 24 hours): Temp Pulse Resp BP Pulse Ox 98 F 71 20 122/76 97 11/03/17 06:00 11/03/17 06:00 11/03/17 06:00 11/03/17 06:00 11/03/17 06:00 Intake and Output: 11/03/17 11/03/17 06:59 18:59 Intake Total 240 Balance 240 - Labs Labs: 11/01/17 15:30 11/01/17 15:30 PT 11.8 SECONDS (9.4-12.5) 10/26/17 06:30 INR 1.03 (0.93-1.08) 10/26/17 06:30 APTT 37.5 Seconds (25.1-36.5) H 10/26/17 06:30 - Constitutional Appears: Well, Non-toxic, No Acute Distress - Extremities Exam Extremities Exam: absent: Calf Tenderness Additional comments: VASC: DP/PT pulses fully palpable 2/4. CFT < 3 seconds x 10 digits. Temperature runs warm to cool proximal to distal. No edema noted to RLE DERM: Linear surgical incision site at dorsomedial aspect of right foot measuring approx 3.0cm x 0.2cm x 0.1cm with epithelialization noted to roof of incision - Surgical incision healed with thin layer of epithelialized skin secondary to scab removed by patient. No malodor, no active purulence, no drainage noted on bandage or application of pressure to incision site. Minimal erythema to the surrounding surgical site ORTHO: Mild tenderness with palpation to surgical site NEURO: gross and protective sensation intact - Neurological Exam Neurological Exam: Alert, Awake, Oriented x3 - Psychiatric Exam Psychiatric exam: Agitated, Normal Affect Assessment and Plan - Assessment and Plan (Free Text) Assessment: 37 y/o male 25 days s/p I&D and debridement of all nonviable tissue of right foot abscess with cellulitis and OM (DOS: 10/07/17); cellulitis now resolved Plan: -Pt seen and evaluated -Discussed with attending Dr. Murillo -Chart, lab, vitals reviewed- febrile yesterday, WBC10.7 on 11/01 -Negative for the flu -Patient may shower and get the foot wet, has to pat dry -Wound fully healed at this time- recommend Tylenol for pain management -No dressing needed at this time -Instructed patient to avoid crossing his foot and placing left heel on top of right foot. Explained to patient recently healed surgical incision. Avoid pressure on recently healed surgical incision, may open secondary to pressure/ shearing force. Patient understands -Surgical site cleansed with saline solution -Continue IV Nafcillin for 4-6 weeks per ID No PICC line as outpatient since pt is active IV drug abuser -Continue WBAT in surgical shoe to right foot -Podiatry will continue to follow pt while in house <Maida Murillo - Last Filed: 11/04/17 13:00> Objective - Vital Signs/Intake and Output Vital Signs (last 24 hours): Temp Pulse Resp BP Pulse Ox 98 F 71 20 122/76 97 11/03/17 06:00 11/03/17 06:00 11/03/17 06:00 11/03/17 06:00 11/03/17 06:00 - Labs Labs: 11/01/17 15:30 11/01/17 15:30 PT 11.8 SECONDS (9.4-12.5) 10/26/17 06:30 INR 1.03 (0.93-1.08) 10/26/17 06:30 APTT 37.5 Seconds (25.1-36.5) H 10/26/17 06:30 Attending/Attestation - Attestation I have personally seen and examined this patient.: Yes I have fully participated in the care of the patient.: Yes I have reviewed all pertinent clinical information, including history, physical exam and plan: Yes Notes (Text): 11/04/17 13:00 wound has healed and pt to continue and finish IV antibiotics for OM as per ID
--- NOTE | 2017-11-03 21:52 | PN ---
DATE: SUBJECTIVE: Patient is in bed, in no acute distress, nontoxic. No fevers, no chills. He was seen early this morning. He is very anxious about leaving the hospital. PHYSICAL EXAMINATION: VITAL SIGNS: However on exam, reveals the patient has a temperature of 100.6 this morning, blood pressure is 120/70, respiratory rate of 16. HEENT: Unremarkable. NECK: Supple. LUNGS: Have decreased breath sounds. HEART: Normal S1 and S2. ABDOMEN: Soft. LABORATORY DATA: Reveals a white count of 10,000, hemoglobin of 11, platelets of 203. Sed rate is 24. Chemistries are noted. Microbiology reveals the blood cultures are no growth. ASSESSMENT AND PLAN: This is a 37-year-old male with what appears to be a sensitive Staphylococcus aureus bacteremia with osteomyelitis and intravenous drug abuser with possible tricuspid valve endocarditis, persistent fever, on antibiotics. Patient decided to sign out against medical advice, and risk factors explained to him including paralysis and . He understands . Mayur Coleman MD
== END 2017-11-03 12:30 | disposition left against medical advice (07) | DRG 584 ==
LOC: ED 15:59 → ERH 17:10 → 5RNO 19:19
PROVIDERS: ADMIT Internal Medicine; ATTEND Hospitalist
DX: A41.01 Sepsis due to Methicillin susceptible Staphylococcus aureus (principal); M86.171 Other acute osteomyelitis, right ankle and foot; L03.115 Cellulitis of right lower limb; B18.2 Chronic viral hepatitis C; L02.611 Cutaneous abscess of right foot; F11.20 Opioid dependence, uncomplicated; E87.3 Alkalosis; F12.90 Cannabis use, unspecified, uncomplicated; G89.29 Other chronic pain; F17.210 Nicotine dependence, cigarettes, uncomplicated; K76.0 Fatty (change of) liver, not elsewhere classified; I38 Endocarditis, valve unspecified; F41.9 Anxiety disorder, unspecified